=== PATIENT | female | born 2005 | race Caucasian/White ===

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

== ENCOUNTER 2024-02-02 15:39 | Emergency (ER) | payer BC, SELFPAY ==
--- NOTE | 2024-02-02 15:47 | ED.EAR ---
HPI - Ear Problem General Chief complaint: Ear Stated complaint: Earache Time Seen by Provider: 02/02/24 15:47 Source: patient, RN notes reviewed and old records reviewed Mode of arrival: ambulatory Limitations: no limitations History of Present Illness HPI Narrative: 18-year-old female to [facility] with complaint of right ear pain for 4 days. Patient states she called her primary care provider and that they sent a prescription for ear drops. Patient has been attempting to treat at home with ibuprofen as well. Patient reports worsening symptoms. Patient denies nausea, round, fever, headache , dizziness. Related Data Home Medications Medication Instructions Recorded Confirmed cariprazine 4.5 mg capsule 4.5 mg PO DAILY 02/02/24 02/02/24 (Vraylar) Allergies Allergy/AdvReac Type Severity Reaction Status Date / Time No Known Allergies Allergy Mild Verified 02/02/24 15:54 Review of Systems Review of Systems: All systems reviewed & are unremarkable except as noted in HPI and below Constitutional: Constitutional: Reports as per HPI and Denies fever(s) Eyes: Eyes: Reports no additional eye complaints ENT: Reports as per HPI and Reports otalgia ( right) Cardiovascular: Cardiovascular: Reports no additional cardiovascular complaints, Denies chest pain and Denies dyspnea Respiratory: Respiratory: Reports no additional respiratory complaints, Denies cough and Denies dyspnea Musculoskeletal: Musculoskeletal: Reports no additional musculoskeletal complaints Neurologic: Reports system reviewed and no additional complaints, except as documented Psychiatric: Psychiatric: Reports no additional psychiatric complaints [facility] Past Medical History Medical History Anxiety Depression Migraine Surgical History Surgical History History of ear surgery Family History Family History Father Alcoholism Hypertension Mother Hypertension Depression Sibling Depression Grandparent Depression Hypertension Cancer Social History Social History Smoking status: Current some day smoker Tobacco type: e-cigarettes/vaping Second hand tobacco smoke exposure: No Alcohol intake: current Alcohol use details: socially Substance use type: marijuana Lack of Transportation: No Lack of Food: Sometimes True Current Housing: I Have Housing Concerned About Future Housing: No Difficulty Paying Gas/Electric Bills: No Difficulty Paying for Meds: No Currently Unemployed: No Education: High School Diploma/GED Difficulty w/ Childcare or Family Care: No Living arrangements: with family Occupation/Education: occupation Gender identity (if verbalized by the patient): Female Sexual Orientation (if Verbalized by the Patient): Straight or Heterosexual Comments At the time of my signature, I reviewed and agree with the nursing past medical, surgical, social, and family history. There is no relevant family history pertinent to the patient complaint. Exam Const: General: cooperative, healthy appearing, comfortable, no acute distress, alert and well nourished Nutritional Appearance: well nourished Orientation/consciousness: patient oriented x3 Limitations: no limitations HENMT: Head: normal to inspection Ears: external ears normal and TM abnormal bulging on the right, erythematous bilateral, with loss of landmarks on the left ( history of graft; unable to visualize landmarks) and other ( history of graft to left TM) Face/Nose/Sinus: Normal external nose present, Normal nares present, normal facial exam, No erythema and No edema Face and sinus: normal facial exam, no erythema and no edema Mouth: Yes Normal oral and palatal mucosa present Throat: posterior terrell
[2024-02-02 15:49] VITALS: BP 132/90; PULSE 91; RESP 18; TEMP 36.5; O2SAT 100
== END 2024-02-02 16:12 | disposition home or self-care (01) ==
PROVIDERS: Emergency Provider Nurse Practitioner Family; PCP Physician Assistant
DX: H66.91 Otitis media, unspecified, right ear (principal); F12.90 Cannabis use, unspecified, uncomplicated
CPT/HCPCS: 99213; G0463

== ENCOUNTER 2024-12-10 13:26 | Emergency (ER) | payer BC, SELFPAY ==
--- NOTE | ~2024-12-10 | XR_ITS ---
CHEST RADIOGRAPH, PA AND LATERAL CLINICAL HISTORY: productive cough . COMPARISON: None available TECHNIQUE: PA and lateral views of the chest. FINDINGS The cardiomediastinal silhouette is unremarkable. The lungs are clear. Visualized osseous structures and soft tissues are unremarkable. IMPRESSION: No focal infiltrate or effusion. Reviewed, dictated and finalized at location A. 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
--- OUTSIDE RECORDS SUMMARY | 2024-12-10 13:30 | XMS_ITS ---
Author Organization [facility] [employer] Address [address] [place] [address] Care Team Providers Care Spouting Installer Name Role Phone ARCELIA DANIELS PA-C Primary Care Provider Cyndi Nix Unavailable [phone] Allergies No Known Allergies REASON FOR VISIT follow up Medications Medication SIG (Take, Route, Frequency, Duration) Notes Start Date End Date Status Nurtec 75 MG Oral *Reorder from [employer] for eRx and Interaction Alerts* 03/09/2024 Unknown lamoTRIgine 100 MG 1 tablet Orally Once a day for 90 days Active hydrOXYzine HCl 10 MG 1 tablet Orally twice a day for 30 days As needed Active AIMOVIG AUTOINJECTOR 140 MG/ML SUBCUTANEOUS AUTO-INJECTOR *Reorder from [employer] for eRx and Interaction Alerts* 03/09/2024 Unknown FLUoxetine HCl 20 MG 1 capsule Orally Once a day for 90 days Active NUVARING 0.12 MG-0.015 MG/24 HR VAGINAL *Reorder from [employer] for eRx and Interaction Alerts* 03/09/2024 Unknown lamoTRIgine 25 MG 3 tablets Oral once a day for 90 days Active Social History Tobacco Use: Social History Observation Description Date Details (start date - stop date) Never Smoker NA - NA Sex Assigned At : Social History Observation Description Sex Assigned At Female Tobacco Control (Standard) Question Answer Notes Tobacco use: Nonsmoker Encounters Encounter Location Date Provider Diagnosis [facility] [place] [facility] [address] [place] [address] 11/25/2024 Cyndi Stephens Major depressive disorder, recurrent, moderate F33.1 ; Generalized anxiety disorder F41.1 and Attention-deficit hyperactivity disorder, combined type F90.2 Assessments Encounter Date Diagnosis (ICD Code) Assessment Notes Treatment Notes Treatment Clinical Notes Section Notes 11/25/2024 Major depressive disorder, recurrent, moderate (ICD-10 - F33.1) Common side effects to SSRI medications include headaches, dry mouth/eye, GI upset (including indigestion, nausea, diarrhea), sleeping problems (insomnia or drowsiness), decreased libido, blurred vision, dizziness. Generally, side effects will subside or lessen with time and are common during drug initiation and dose changes. If they persist please contact the office. Lamotrigine is an anticonvulsant and mood stabilizer used in psychiatry. Lamotrigine use is associated with benign rashes (incidence approximately 10%) and rare serious rashes that may require hospitalization and discontinuation of treatment, including Ronquillo-Darnell syndrome and toxic epidermal necrolysis. Pt educated on importance of titration schedule and to take the medication only as prescribed. Pt educated that if they miss 5 or more consecutive doses then this medication will need to be re-titrated to reduce risk of rash. If any rash is noted, patient is instructed to stop taking this medication and call office. If rash is severe, they are to present immediately to the emergency room. 11/25/2024 Generalized anxiety disorder (ICD-10 - F41.1) 11/25/2024 Attention-defici t hyperactivity disorder, combined type (ICD-10 - F90.2) 11/25/2024 Other Increase lamictal to 100mg daily for mood, irritability Patient educated on all medications including potential benefits, side effects, risks. Educated on proper dosing schedule and importance of compliance. -Assessment and treatment plan reviewed with patient. -Compliance with treatment plan importance discussed. -Discussed the risks/benefits of this medication -Discussed medication side effects. -Contact office if symptoms worsen. -Discussed that it can take up to 6-8 weeks to see full therapeutic effects of psychotropic medications. -Crisis prevention hotline 987. Plan Of Treatment Medication Medication Name Sig Start Date Stop Date Notes lamoTRIgine 100 MG 1 tablet Orally Once a day for 90 days hydrOXYzine HCl 10 MG 1 tablet Orally tw ice a day for 30 days FLUoxetine HCl 20 MG 1 capsule Orally On ce a day for 90 days Treatment Notes Assessment Notes Major depressive disorder, r ecurrent, moderate Common side effects to SSRI medications include headaches, dry mouth/eye, GI upset (including indigestion, nausea, diarrhea), sleeping problems (insomnia or drowsiness), decreased libido, blurred vision, dizziness. Generally, side effects will subside or lessen with time and are common during drug initiation and dose changes. If they persist please contact the office. Lamotrigine is an anticonvulsant and mood stabilizer used in psychiatry. Lamotrigine use is associated with benign rashes (incidence approximately 10%) and rare serious rashes that may require hospitalization and discontinuation of treatment, including Ronquillo-Darnell syndrome and toxic epidermal necrolysis. Pt educated on importance of titration schedule and to take the medication only as prescribed. Pt educated that if they miss 5 or more consecutive doses then this medication will need to be re-titrated to reduce risk of rash. If any rash is noted, patient is instructed to stop taking this medication and call office. If rash is severe, they are to present immediately to the emergency room. Other Increase lamictal to 100mg daily for mood, irritability Patient educated on all medications including potential benefits, side effects, risks. Educated on proper dosing schedule and importance of compliance. Next Appt Details Follow Up: 6 Weeks, Reason: medication follow up Provider Name:Cyndi Stephens, 01/06/2025 08:00:00 AM, [address], [facility] [address], [place], [address], Progress Notes * DENIS GÓMEZАЛЕКСАНДРADOB:2005 (19 yo F)Acc No.[id number]:11/25/2024 Patient: CARLINE COTTON Provider: KIM MANCILLAHNP :2005 A ge:19 Y S ex:Female Date:11/25/2024 Address:[facility] [address] [place] [facility] Pcp:ARCELIA DANIELS PA-C Subjective: * Chief Complaints: * F ollow up * HPI: H istory of Presenting Problem: Medication Side Effects n one . A nxiety R ates anxiety 5/10 with 10 being most severe. . D epression R ates depression 3/10 with 10 being most severe. . M ood lability n o hx of pal . P sychosis n o hx of psychosis . S uicidal ideation D enies . S ubstance abuse A lcohol use about monthly . A DHD f orgetful in daily activities, easily distracted by extraneous stimuli, does not follow through on instructions and fails to finish work. Here for follow up. Lamictal increased last apt. 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 Mood is okay, I still get mad easily still . Irritability is overall better although continues to improve overall with medication. Irritability is generally directed toward boyfriend or mom, not strangers. Continues to report anxiety, worse when she is in public by herself. Denies panic attacks, Sleep is good, getting about 7 hours nightly. Appetite is good. D epression Screening: MURPHY-7 (2018 Edition) F eeling nervous, anxious, or on edge?More than half the days, N ot being able to stop or control worrying S everal days,?Worrying too much about different things S everal days, T rouble relaxing M ore than half the days, B eing so restless that it is hard to sit still M ore than half the days, B ecoming easily annoyed or irritable N early every day, F eeling afraid as if something awful might happen S ever. [place]-Suicide Severity Rating Scale: Suicide Risk (CSRS-screener) i n the past one month Have you wished you were or wished you could go to sleep and not wake up? N o, i n the past one month Have you actually had any thoughts of killing yourself? N o. D epression screening: PHQ-9 L ittle interest or pleasure in doing things S everal days, F eeling down, depressed, or hopeless S everal days, T rouble falling or staying asleep, or sleeping too much M ore than half the days, F eeling tired or having little energy N early every day, P oor appetite or overeating N ot at all, F eeling bad about yourself or that you are a failure, or have let yourself or your family down S everal days, Moving or speaking so slowly that other people could have noticed; or the opposite, being so fidgety or restless that you have been moving around a lot more than usual N ot at all, T houghts that you would be better off or of hurting yourself in some way N ot at all. I ntervention D epression Screening Findings P ositve, F ollow-Up for Depression M ental health treatment assessment, Patient follow-up to return when and if necessary, S uicide Risk Assessment Performed , A dditional Evaluation for Depression P sychiatric interview and evaluation, N melly of the standardized tool used for adult depression screening: P atient Health Questionnaire (PHQ-9). * ROS: P sychiatric: Patient denies s uicidal thoughts, pal, auditory / visual hallucinations, delusions, panic attacks. P atient complains of a nxiety, irritability.?Comments S [facility] for details. * Medical History: * Surgical History: E ardrum revision (32106) * Hospitalization/Major Diagno stic Procedure: * Family History: M aternal Aunt: Depressive disorder . M other: Bipolar disorder , Attention deficit hyperactivity disorder , Depressive disorder . * Social History: T obacco Use: T obacco Control (Standard) T obacco use: N onsmoker. M igrated Social History: M igrated Social History: Alcohol Intake: Occasional 04/03/2023,Tobacco Years: Never smoker 04/03/2023. M iscellaneous: A dvance Care Planning A re you your own decision-maker Y es, D o you have Power of Professor Criminal Justice for Health or Medical? N o. * Medications: T akingFLUoxetine HCl 20 MG Capsule 1 capsule Orally Once a day hydrOXYzine HCl 10 MG Tablet 1 tablet Orally twice a day lamoTRIgine 25 MG Tablet 3 tablets Oral once a day Taking FLUoxetine HCl 20 MG Capsule 1 capsule Orally Once a day Taking hydrOXYzine HCl 10 MG Tablet 1 tablet Orally twice a day Taking lamoTRIgine 25 MG Tablet 3 tablets Oral once a day UnknownNUVARING 0.12 MG-0.015 MG/24 HR VAGINAL , Notes to Pharmacist: *Reorder from [facility] for eRx and Interaction Alerts*Nurtec 75 MG Tablet Disintegrating Oral , Notes to Pharmacist: *Reorder from [employer] for eRx and Interaction Alerts*AIMOVIG AUTOINJECTOR 140 MG/ML SUBCUTANEOUS AUTO-INJECTOR , Notes to Pharmacist: *Reorder from [employer] for eRx and Interaction Alerts*Medication List reviewed and reconciled with the patientMiyanowanthony NUVARING 0.12 MG-0.015 MG/24 HR VAGINAL , Notes to Pharmacist: *Reorder from [employer] for eRx and Interaction Alerts*Unknown Nurtec 75 MG Tablet Disintegrating Oral , Notes to Pharmacist: *Reorder from [employer] for eRx and Interaction Alerts*Unknown AIMOVIG AUTOINJECTOR 140 MG/ML SUBCUTANEOUS AUTO-INJECTOR , Notes to Pharmacist: *Reorder from [employer] for eRx and Interaction Alerts*Medication List reviewed and reconciled with the patient * Allergies: N .K.D.A.no[Allergies Verified] Objective: * Vitals: * Examination: P sychiatry: Appearance: w ell-groomed. Abnormal body movements: n one. Affect / mood: a ppropriate. Attitude: c ooperative. Homicidal ideation: n one. Suicidal ideation: n one. Degree of awareness of surroundings: w ithin normal limits.? Delusions: n o. Hallucinations: n o. Insight: g ood. Judgement: g ood. Orientation: a wake, alert and oriented x 3. Perceptual disorders: n o perceptual disorder noted. Psychomotor activity: w ithin normal range. Speech / language: n ormal rate, volume, and articulation (RVR). Thought content: a ppropriate. Thought process: i ntact. Assessment: * Assessment: 1. M ajor depressive disorder, recurrent, moderate - F33.1 (Primary) 2 . G eneralized anxiety disorder - F41.1 3 . A ttention-deficit hyperactivity disorder, combined type - F90.2 Plan: * Treatment: 2. G eneralized anxiety disorder Continue hydrOXYzine HCl Tablet, 10 MG, 1 tablet, Orally, twice a day As needed, 30 days, 60 Tablet, Refills 0. 3. O thers Notes: Increase lamictal to 100mg daily for mood, irritability Patient educated on all medications including potential benefits, side effects, risks. Educated on proper dosing schedule and importance of compliance. Clinical Notes: -Assessment and treatment plan reviewed with patient. -Compliance with treatment plan importance discussed. -Discussed the risks/benefits of this medication -Discussed medication side effects. -Contact office if symptoms worsen. -Discussed that it can take up to 6-8 weeks to see full therapeutic effects of psychotropic medications. -Crisis prevention hotline 988. * Procedure Codes: 9 6127 BEHAV ASSMT W/SCORE & DOCD/STAND [id number] VISIT COMPLEXITY INHERENT TO ONGOING CARE RELATED TO A PATIENT'S SINGLE, SERIOUS CONDITION OR A COMPLEX [id number] CLIN DEPRESSION SCREEN DOC * Follow Up: 6 Weeks (Reason: medication follow up) * Billing Information: * Visit Code: 00881 OFFICE OUTPATIENT VISIT 25 MINUTES DETAILED HISTORY AND EXAM/MODERATE MEDICAL DECISION MAKING. * Procedure Codes: 53256 BEHAV ASSMT W/SCORE & DOCD/STAND INSTRUMENT. G2211 VISIT COMPLEXITY INHERENT TO ONGOING CARE RELATED TO A PATIENT'S SINGLE, SERIOUS CONDITION OR A COMPLEX CONDITION. G8431 CLIN DEPRESSION SCREEN DOC. * ICAL INFORMATICS SPECIALIST Sign off status: Completed true * Provider: ASHELY MANCILLA Date: 0 11/25/2024 Generated for Leodan torres/Jhon/Shabnamitting on: 0 12/10/2024 01:30 PM CLINICAL INFORMATICS SPECIALIST History and Physical Notes * HPI (History of Present Illness) Category Sub-Category Detail Notes Category Not es History of Presenting Problem Anxiety Rates anxiety 5/10 with 10 b eing most severe. Here for follow up. Lamictal increased last apt. 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 Mood is okay, I still get mad easily still . Irritability is overall better although continues to improve overall with medication. Irritability is generally directed toward boyfriend or mom, not strangers. Continues to report anxiety, worse when she is in public by herself. Denies panic attacks, Sleep is good, getting about 7 hours nightly. Appetite is good. Depression Rates depression 3/1 0 with 10 being most severe. Substance abuse Alcohol use about mo nthly Suicidal ideation Denies Psychosis no hx of psychosis Mood lability no hx of pal ADHD forgetful in daily a ctivities, easily distracted by extraneous stimuli, does not follow through on instructions and fails to finish work Medication Side Effects none Depression screening PHQ-9 Little inte rest or pleasure in doing things: Several days Feeling down, depressed, or hopeless: Se veral days Trouble falling or staying a sleep, or sleeping too much: More than half the days Feeling tired or having little energy: N early every day Poor appetite or overeating: Not at all Feeling bad about yourself o r that you are a failure, or have let yourself or your family down: Several days Moving or speaking so slowly that other people could have noticed; or the opposite, being so fidgety or restless that you have been moving around a lot more than usual: Not at all Thoughts that you would be b justine off or of hurting yourself in some way: Not at all Intervention Depression Screening Findings: P ositve Follow-Up for Depression: [facility] treatment assessment, Patient follow-up to return when and if necessary Suicide Risk Assessment Performed: Additional Evaluation for De pression: Psychiatric interview and evaluation Name of the standardized too l used for adult depression screening:: Patient Health Questionnaire (PHQ-9) Depression Screening MURPHY-7 (2018 Edition) Feelin g nervous, anxious, or on edge: More than half the days Not being able to stop or control worryi ng: Several days Worrying too much about different things : Several days Trouble relaxing: More than half the day s Being so restless that it is hard to sit still: More than half the days Becoming easily annoyed or irritable: [place] every day Feeling afraid as if something awful derian ht happen: Several days [place]-Suicide Severity Rating Scale Suicide Risk (CSRS-screener) in the past one month Have you wished you were or wished you could go to sleep and not wake up?: No in the past one month Have y ou actually had any thoughts of killing yourself?: No Examination Category Sub-Category Detail Notes Category Not es Psychiatry Appearance: well-groomed Attitude: cooperative Psychomotor activity: within normal rang e Abnormal body movements: none Degree of awareness of surroundings: wit hin normal limits Orientation: awake, alert and husam ented x 3 Affect / mood: appropriate Speech / language: normal rate, volume, and articulation (RVR) Insight: good Judgement: good Thought process: intact Thought content: appropriate Perceptual disorders: no perceptual diso rder noted Suicidal ideation: none Homicidal ideation: none Delusions: no Hallucinations: no
--- OUTSIDE RECORDS SUMMARY | 2024-12-10 13:30 | XMS_ITS ---
Author Organization [facility] [employer] Address [address] [place] [address] Care Team Providers Care State Editor Name Role Phone ARCELIA DANIELS PA-C Primary Care Provider Cyndi Nix Unavailable [phone] Allergies No Known Allergies REASON FOR VISIT 1 month f/u Medications Medication SIG (Take, Route, Frequency, Duration) Notes Start Date End Date Status Nurtec 75 MG Oral *Reorder from [employer] for eRx and Interaction Alerts* 03/09/2024 Unknown NUVARING 0.12 MG-0.015 MG/24 HR VAGINAL *Reorder from [employer] for eRx and Interaction Alerts* 03/09/2024 Unknown AIMOVIG AUTOINJECTOR 140 MG/ML SUBCUTANEOUS AUTO-INJECTOR *Reorder from [employer] for eRx and Interaction Alerts* 03/09/2024 Unknown FLUoxetine HCl 20 MG 1 capsule Orally Once a day for 90 days Active lamoTRIgine 25 MG 3 tablet Orally once daily for 30 days for 14 days then 2 tablets daily Active hydrOXYzine HCl 10 MG 1 tablet Orally twice a day for 30 days 10/14/2024 Active lamoTRIgine 25 MG 2 tablets Oral once a day for 90 days Active Social History Tobacco Use: Social History Observation Description Date Details (start date - stop date) Never Smoker NA - NA Sex Assigned At : Social History Observation Description Sex Assigned At Female Tobacco Control (Standard) Question Answer Notes Tobacco use: Nonsmoker Encounters Encounter Location Date Provider Diagnosis [facility] [address] [facility] [address] [place] [address] 10/14/2024 Cyndi Stephens Major depressive disorder, recurrent, moderate F33.1 ; Generalized anxiety disorder F41.1 and Attention-deficit hyperactivity disorder, combined type F90.2 Assessments Encounter Date Diagnosis (ICD Code) Assessment Notes Treatment Notes Treatment Clinical Notes Section Notes 10/14/2024 Major depressive disorder, recurrent, moderate (ICD-10 - [...] to present immediately to the emergency room. 10/14/2024 Generalized anxiety disorder (ICD-10 - F41.1) 10/14/2024 Attention-defici t hyperactivity disorder, combined type (ICD-10 - F90.2) 10/14/2024 Other Increase Lamictal 75 mg daily for mood, anxiety. Patient educated on all medications including potential [...] effects of psychotropic medications. -Crisis prevention hotline 304. Plan Of Treatment Medication Medication Name Sig Start Date Stop Date Notes FLUoxetine HCl 20 MG 1 capsule Orally On ce a day for 90 days lamoTRIgine 25 MG 3 tablet Orally once daily for 30 days hydrOXYzine HCl 10 MG 1 tablet Orally tw ice a day for 30 days 10/14/2024 Treatment Notes Assessment Notes Major depressive disorder, [...] immediately to the emergency room. Other Increase Lamictal 75 mg daily for mood, anxiety. Patient educated on all medications including potential benefits, side effects, risks. Educated on proper dosing schedule and importance of compliance. Next Appt Details Follow Up: 6 Weeks, Reason: medication follow up Provider Name:Cyndi Stephens, 01/06/2025 08:00:00 AM, [address] [facility], [facility] [address], [place], [address], Progress Notes * DENIS GÓMEZMODESTOB:2005 (19 yo F)Acc No.[id number]:10/14/2024 Patient: CARLINE COTTON Provider: Sukhjinder STEPHENS PMHNP :2005 A ge:19 Y S ex:Female Date:10/14/2024 Address:[facility], [facility] Pcp:ARCELIA DANIELS PA-C Subjective: * Chief Complaints: * 1 month f/u * HPI: H istory of Presenting Problem: Medication Side Effects n one . A nxiety R ates anxiety 7/10 with 10 being most severe. . D epression R ates depression 3/10 with 10 being most severe. . M ood lability n o hx of pal . P sychosis n o hx of psychosis . S ubstance abuse A lcohol use about monthly . S uicidal ideation?Denies . A DHD f orgetful in daily activities, easily distracted by extraneous stimuli, does not follow through on instructions and fails to finish work. Here for follow up. Abilify discontinued and lamictal started last apt. She has been interviewing for [employer] as a [place]. She is up to 50mg on the lamictal. Reports she has noted a positive change in mood, energy and motivation is better. States depression is a lot better . Denies feeling hopeless or helpless. No suicidal ideation. Anxiety is awful , about the same since last apt. Denies panic attacks. Continues to have irritability, maybe slightly better. Sleep is good. Getting about 7 hours nightly. Appetite is good. D epression Screening: MURPHY-7 (2018 Edition) F eeling nervous, anxious, or on edge?Nearly every day, W orrying too much about different things M ore than hafl the days,?Trouble relaxing S everal days, B eing so restless that it is hard to sit still M ore than half the days, B ecoming easily annoyed or irritable N early every day, F eeling afraid as if something awful might happen S everal . [place]-Suicide Severity Rating Scale: Suicide Risk (CSRS-screener) i n the past one month Have you wished you were or wished you could go to sleep and not wake up? N o, i n the past one month Have you actually had any thoughts of killing yourself? N o. D epression screening: PHQ-9 L ittle interest or pleasure in doing things N early every day, F eeling down, depressed, or hopeless S everal days, T rouble falling or staying asleep, or sleeping too much M ore than half the days, F eeling tired or having little energy S everal days, P oor appetite or overeating M ore than half the days, F eeling bad about yourself or that you are a failure, or have let yourself or your family down M ore than half the days, T rouble concentrating on things, such as reading the newspaper or watching television M ore than half the days, M oving or speaking so slowly that other people could have noticed; or the opposite, being so fidgety or restless that you have been moving around a lot more than usual N ot at all, T houghts that you would be better off or of hurting yourself in some way N ot at all, T otal Score 1 3, I nterpretation M oderate Depression. I ntervention D epression Screening Findings P ositve, F ollow-Up for Depression M ental health treatment assessment, Patient follow-up to return when and if necessary, S uicide Risk Assessment Performed 1 12/15/2023, A dditional Evaluation for Depression P sychiatric interview and evaluation, N melly of the standardized tool used for adult depression screening: [facility] (PHQ-[facility]). * ROS: P sychiatric: Patient denies s uicidal thoughts, pal, auditory / visual hallucinations, delusions, panic attacks. P atient complains of a nxiety, irritability.?Comments S [facility] for details. * Medical History: * Surgical History: E ardrum revision (42205) * Hospitalization/Major Diagno stic Procedure: * Family [...] es, D o you have Power of Medication Manager for Health or Medical? N o. * Medications: T akingFLUoxetine HCl 20 MG Capsule 1 capsule Orally Once a day lamoTRIgine 25 MG Tablet 2 tablets Oral once a day Taking FLUoxetine HCl 20 MG Capsule 1 capsule Orally Once a day Taking lamoTRIgine 25 MG Tablet 2 tablets Oral once a day UnknownNUVARING 0.12 MG-0.015 MG/24 HR VAGINAL , Notes to Pharmacist: *Reorder from [employer] for eRx and Interaction Alerts*Nurtec 75 MG [...] * Treatment: 2. G eneralized anxiety disorder Start hydrOXYzine HCl Tablet, 10 MG, 1 tablet, Orally, twice a day, 30 days, 60 Tablet, Refills 1.? 3. O thers Notes: Increase Lamictal 75 mg daily for mood, anxiety. Patient educated on all medications including potential [...] 9 6127 BEHAV ASSMT W/SCORE & DOCD/STAND [id number] VISIT COMPLEXITY INHERENT TO ONGOING CARE RELATED TO A PATIENT'S SINGLE, SERIOUS CONDITION OR A COMPLEX [id number] CLIN DEPRESSION SCREEN DOC * Follow Up: 6 Weeks (Reason: medication follow up) * Billing Information: * Visit Code: 43007 OFFICE OUTPATIENT VISIT 25 MINUTES DETAILED HISTORY AND EXAM/MODERATE MEDICAL DECISION MAKING. * Procedure Codes: 59647 BEHAV ASSMT W/SCORE & DOCD/STAND INSTRUMENT. G2211 VISIT COMPLEXITY INHERENT TO ONGOING CARE RELATED TO A PATIENT'S SINGLE, SERIOUS CONDITION OR A COMPLEX CONDITION. G8431 CLIN DEPRESSION SCREEN DOC. * CLINICIAN Sign off status: Completed true * Provider: ASHELY MANCILLA Date: 12/15/2023 Generated for Leodan torres/Jhon/Willie on: 0 12/10/2024 01:29 PM CARE CLINICIAN History and Physical Notes * HPI (History of Present Illness) Category Sub-Category Detail Notes Category Not es History of Presenting Problem Anxiety Rates anxiety 7/10 with 10 b eing most severe. Here for follow up. Abilify discontinued and lamictal started last apt. She has been interviewing for [employer] as a [place]. She is up to 50mg on the lamictal. Reports she has noted a positive change in mood, energy and motivation is better. States depression is a lot better . Denies feeling hopeless or helpless. No suicidal ideation. Anxiety is awful , about the same since last apt. Denies panic attacks. Continues to have irritability, maybe slightly better. Sleep is good. Getting about 7 hours nightly. Appetite is good. [...] inte rest or pleasure in doing things: Nearly every day Feeling down, depressed, or hopeless: Se veral days Trouble falling or staying a sleep, or sleeping too much: More than half the days Feeling tired or having little energy: S everal days Poor appetite or overeating: More than h ishan the days Feeling bad about yourself o r that you are a failure, or have let yourself or your family down: More than half the days Trouble concentrating on thi ngs, such as reading the newspaper or watching television: More than half the days Moving or speaking so slowly that other people could have noticed; or the opposite, being so fidgety or restless that you have been moving around a lot more than usual: Not at all Thoughts that you would be b justine off or of hurting yourself in some way: Not at all Total Score: 13 Interpretation: Moderate Depression Intervention Depression Screening Findings: P ositve Follow-Up for Depression: [facility] treatment assessment, Patient follow-up to return when and if necessary Suicide Risk Assessment Performed: 10/14 Additional Evaluation for Depression: Ps ychiatric interview and evaluation Name of the standardized too l used for adult depression screening:: Patient Health Questionnaire (PHQ-9) Depression Screening MURPHY-7 (2018 Edition) Feelin g nervous, anxious, or on edge: Nearly every day Worrying too much about different things : More than hafl the days Trouble relaxing: Several days Being so restless that it is hard to sit still: More than half the days Becoming easily annoyed or irritable: [place] every day Feeling afraid as if something awful derian ht happen: Several days [place]-Suicide Severity Rating Scale Suicide Risk (CSRS-screener) in [...]
--- OUTSIDE RECORDS SUMMARY | 2024-12-10 13:30 | XMS_ITS | Clinical Summary ---
Author Organization [facility] Address [facility] [place] [address] Care Team Providers Care Dispensing Optician Apprentice Name Role Phone Thai Barnett PA-C Primary Care Provider [phone] Allergies Active Allergy Reactions Criticality Noted Date Comments Lactose GI Upset 10/02/2017 Medications ARIPiprazole (ABILIFY) 10 MG tablet Take 1 tablet (10 mg total) by mouth daily. 06/12/2022 Active buPROPion XL (WELLBUTRIN XL) 300 MG 24 hr tablet Take 1 tablet (300 mg total) by mouth daily. Active QULIPTA tablet Take 1 tablet (30 mg total) by mouth daily. Active DULoxetine (CYMBALTA) 30 MG capsule Take 1 capsule (30 mg total) by mouth daily. 05/07/2023 Active VRAYLAR 3 MG capsule Take 1 capsule (3 mg total) by mouth daily. Active lamoTRIgine (LAMICTAL) 100 MG tablet Take 1 tablet (100 mg total) by mouth 2 (two) times daily. 06/12/2022 Active Social History Tobacco Use Types Packs/Day Years Used Date Smoking Tobacco: Never Smokeless Tobacco: Never Alcohol Use Standard Drinks/Week Comments Never 0 (1 standard drink = 0.6 oz pur e alcohol) Comments Unknown Sex and Gender Information Value Date Recorded Sex Assigned at Not on file Legal Sex Female 10:00 AM CDT Gender Identity Not on file Sexual Orientation Not on file Last Filed Vital Signs Vital Sign Reading Time Taken Comments Blood Pressure 136/83 06/12/2023 3:09 PM CDT Pulse 92 06/12/2023 3:09 PM CDT Temperature 36.8 C (98.3 F) 06/12/2023 3:09 PM CDT Respiratory Rate 12 06/12/2023 3:09 PM CDT Oxygen Saturation 99% 06/12/2023 3:09 PM CDT Inhaled Oxygen Concentration - - Weight 90.7 kg (200 lb) 06/11/2023 4:14 AM CDT Height 172.7 cm (5' 8 ) 06/11/2023 4:14 AM CDT Body Mass Index 30.41 06/11/2023 4:14 AM CDT Plan of Treatment Health Maintenance Due Date Last Done Comments Annual Physical 2007 Meningococcal B Vaccine (1 of 2 - Standard) 2020 Hepatitis C 2022 COVID-19 Vaccine ( season) 2024 Influenza Adult (#1) 2024 08/09/2015, 09/12/2008, 09/05/2005, Additional history exists DTaP, Tdap and Td Vaccines (7 - Td or Tdap) 08/09/2025 08/09/2015, 03/03/2009, 06/21/2005, Additional history exists Hepatitis B Vaccines Completed 03/11/2005, 2004, 2004 Pneumococcal Vaccine: Pediatrics (0 to 5 Years) and At-Risk Patients (6 to 64 Years) Aged Out 03/11/2005, 2004, 2004, Additional history exists No longer eligible based on patient's age to complete this topic HPV Vaccines Completed 04/22/2016, 01/2016, 08/09/2015 Meningococcal Vaccine Completed 10/31/2020, 015 RSV Immunizations Under 20 Months Aged Out No longer eligible based on patient's age to complete this topic Insurance Care Teams Dispensing Optician Apprentice Relationship Specialty Start Date End Date Thai Barnett PA-C [address] [facility] [address] [place] [address] PCP - General PHYSICIAN PROCESS SPECIALIST 06/11/23
--- OUTSIDE RECORDS SUMMARY | 2024-12-10 13:30 | XMS_ITS | Clinical Summary ---
Author Organization [facility] Address [address] [place] [address] Care Team Providers Care Software Engineer Advisor Name Role Phone Unavailable Primary Care Provider Unavailabl e Social History Tobacco Use Types Packs/Day Years Used Date Smoking Tobacco: Never Assessed Comments Unknown Sex and Gender Information Value Date Recorded Sex Assigned at Not on file Legal Sex Female 1:08 PM CDT Gender Identity Not on file Sexual Orientation Not on file Plan of Treatment Health Maintenance Due Date Last Done Comments Hepatitis C Virus (HCV) Screening 2004 Meningococcal B Immunization (1 of 2 - Standard) 2020 Influenza Immunization (#1) 07/04/202405/2015, 08/12/2014, 08/06/2013, Additional history exists SARS-COV-2 Immunization (2023- season) 2024 Respiratory Syncytial Virus (RSV) Immunization (Adult) (1 - 1-dose 75+ series) 2079 Hepatitis B Immunization Completed 005, 2004, 2004 Pneumococcal Immunization Combined Aged Out 03/11/2005, 2004, 2004, Additional history exists No longer eligible based on patient's age to complete this topic Hepatitis A Immunization Discontinued 09/22/2007, 03/03 Measles Mumps Rubella (MMR) Immunization Discontinued 03/03/2009, 03/11/2005 Polio (IPV) Immunization Discontinued 009, 2004, 2004, Additional history exists Varicella Immunization Discontinued 03/03/2009, 2004 DTaP/Tdap/Td Immunization Discontinued 2014, 03/03/2009, 06/21/2005, Additional history exists TdaP Immunization Completed 08/09/2015 Human Papillomavirus (HPV) Immunization Completed 04/22/2016, 12/06/2015, 08/09/2015 Meningococcal Immunization (ACWY) Completed 10/31/2020, 08/09/2015 Rotavirus Immunization Aged Out No lo nger eligible based on patient's age to complete this topic
--- OUTSIDE RECORDS SUMMARY | 2024-12-10 13:30 | XMS_ITS | Patient Health Record ---
Author Organization [facility] Address [address] [place] [address] Care Team Providers Care Termite Renewal Inspector Name Role Phone Thai Barnett Primary Care Provider UnavailDelilah Gonzalez Unavailable [phone] [employer], Provider Unavailable Unavailab le Allergies No Known Allergies Reason For Referral No Information Medications Medication SIG (Take, Route, Frequency, Duration) Notes Start Date End Date Status CETIRIZINE HYDROCHLORIDE 10 mg 1 tab(s) orally bid 01/29/2023 Active Qulipta 30 MG 1 tab(s) orally once a day Active Wellbutrin SR 150 MG 1 tab(s) orally 2 t imes a day Active Vraylar 3 MG 1 cap(s) orally once a day Active QULIPTA 30 mg 1 tab(s) orally once a day Active FAMOTIDINE 40 mg 1 tab(s) orally bid 01/29/2023 Active Cetirizine HCl 10 MG 1 tab(s) orally bid Active WELLBUTRIN SR 150 mg/12 hours 1 tab(s) orally 2 times a day Active Famotidine 40 MG 1 tab(s) orally bid 01/29/2023 Active VRAYLAR 3 mg 1 cap(s) orally once a day Active Immunizations Vaccine Route Administration Date Status Comme nts DTaP < 7 y/o Unknown 05/11/2010 Administered Portal Inf ormation Hepatitis B (11-19) Unknown 2005 Administered Por sagrario Information Hepatitis A Unknown 2004 Administered Portal Info rmation Social History Tobacco Use: Social History Observation Description Date Details (start date - stop date) Never Smoker NA - NA Smoking Smart Form: Question Answer Notes Are you a: never smoker Problems Problem Type SNOMED Code ICD Code Onset Dates Problem Status W/U Status Risk Notes Problem Idiopathic urticaria (37343659) Idiopathic urticaria (L50.1) Active confirmed Encounters Encounter Location Date Provider Diagnosis [facility] - [address] [address] 04/17/2024 Provider Bryon Idiopathic urticaria L50.1 Assessments Encounter Date Diagnosis (ICD Code) Assessment Notes Treatment Notes Treatment Clinical Notes Section Notes 04/17/2024 Idiopathic urticaria (ICD-10 - L50.1) Plan Of Treatment No Information Insurance Providers Payer Name Payer Address Payer Phone Subscriber Number Group Number Insured Name Patient Relationship to Insured Coverage Start Date Coverage End Date [facility] [id number] [place] [address] [id number] Jeannine Ball Child - Insured has Financial Responsibility Medical (General) History Medical History History ICD Code Depression, unspecified F32.A Surgical History Surgery Date(Month/Year) ear patch 01/09/2018
--- OUTSIDE RECORDS SUMMARY | 2024-12-10 13:30 | XMS_ITS | CONTINUITY OF CARE DOCUMENT ---
Author Name kelly mendoza Address Unknown Organization [facility] Address [id number] [place] [address] [address] [place] [address] Phone [phone] Care Team Providers Care Laundry Assistant Name Role Phone Marcos Juan MD Unavailable [phone] Marcos Juan MD Unavailable [phone] INSURANCE PROVIDERS Payer name Policy type / Coverage type [place] red [employer] party ID [facility] [id number]
--- OUTSIDE RECORDS SUMMARY | 2024-12-10 13:30 | XMS_ITS | Data Portability ---
Author Organization [facility] Address [address] [place] [address] Care Team Providers Care Geriatric Social Work Professor Name Role Phone ARCELIA DANIELS Primary Care Provider [phone] Assessment No assessment recorded. Plan of Treatment Reminders Order Date Submit Date Provider Last Modified By Organization Details Last Modified Time Details Appointments None recorded. Lab CMP, serum or plasma 2022 023 [facility] (Lab), [address] [place], [address], 3 05:52:51 lipid panel, blood 2022 023 [facility] (Lab), [address] [place], [address], 3 05:52:50 CBC w/ auto diff 2022 023 [facility] (Lab), [address] [place], [address], 3 05:52:50 prolactin, serum 2022 023 [facility] (Lab), [address] [place], [address], 3 05:52:52 TSH, serum or plasma 2022 023 [facility] (Lab), [address] [place], [address], 3 05:52:51 HbA1c (hemoglobi n A1c), blood 2022 023 [facility] (Lab), [address], [place], [address], 3 05:52:52 urinalysis , dipstick 2022 023 [email or web address], [address], [place], [address], 3 13:28:32 urinalysis , dipstick [email or web address] [place], [place] [id number] [address], [address], [place], [address], 4 12:06:50 Referral primary care provider referral 2021 022 [email or web address] Not available 14:47:29 Procedures None recorded. Surgeries None recorded. Imaging None recorded. Medication Orders NuvaRing 0.12 mg-0.015 mg/24 hr vaginal 2021 [facility]22 [address] [id number] [address] [place], [place], [id number], 3 13:22:22 Provera 10 mg tablet [address] [id number], [address] [place], [place], [id number], 3 16:37:03 Macrobid 100 mg capsule 2022 024 [facility]armacy #2510, [address] [place], [address], 4 12:02:19 Pyridium 100 mg tablet [address]/Pharmacy #2510, [address] [place], [address], 4 12:02:03 Diflucan 200 mg tablet 2023 024 [facility] [address] [place], [address], 4 12:18:11 nystatin-t riamcinolo ne 100,000 unit/gram- 0.1 % topical ointment 2023 024 [facility] [address] [place], [address], 4 12:18:10 Patient TargetsNo targets recorded. Patient InstructionsNo instructions recorded. Reason for Referral Primary Care Provider Referr al for Adult health examination Referring Physician: Shelley Armendariz, PEDIATRIC ALLERGIST, Encounter Date: 08/28/2022 Results Created Date Observation Date Name Description Value Unit Range Abnormal Flag Note LastModifiedBy Organization Detail LastModifiedTime 11/08/1911/08/2022 CBC W/DIF F WBC 8.8 10'3/ uL 4.5-13 .0 Not Available [facility] (Lab) [address] [place], [address], 11/09/2022 05:52:50 11/08/19 23 11/08/2022 CBC W/DIF F RBC 4.92 10'6/ uL (based on docume nted legal sex) 4.10-5 .30 Not Available [facility] (Lab) [address] [place], [address], 11/09/2022 05:52:50 11/08/19 23 11/08/2022 CBC W/DIF F HGB 14.6 g/dL (based on docume nted legal sex) 11.9-1 5.8 Not Available [facility] (Lab) [address] [place], [address], 11/09/2022 05:52:50 11/08/19 23 11/08/2022 CBC W/DIF F HCT 44.5 % (based on docume nted legal sex) 37.4-4 8.3 Not Available [facility] (Lab) [address], [place], [address], 11/09/2022 05:52:50 11/08/19 23 11/08/2022 CBC W/DIF F MCV 90.4 fL 82.0-9 9.0 Not Available [facility] (Lab) [address], [place], [address], 11/09/2022 05:52:50 11/08/19 23 11/08/2022 CBC W/DIF F MCH 29.7 pg 27.0-3 3.0 Not Available [facility] (Lab) [address], [place], [address], 11/09/2022 05:52:50 11/08/19 23 11/08/2022 CBC W/DIF F MCHC 32.8 g/dL 32.0-3 6.0 Not Available [facility] (Lab) [address], [place], [address], 11/09/2022 05:52:50 11/08/19 23 11/08/2022 CBC W/DIF F RDW 12.9 % 11.0-1 5.0 Not Available [facility] (Lab) [address], [place], [address], 11/09/2022 05:52:50 11/08/19 23 11/08/2022 CBC W/DIF F plt 306 10'3/ uL 150-45 0 Not Available [facility] (Lab) [address], [place], [address], 11/09/2022 05:52:50 11/08/19 23 11/08/2022 CBC W/DIF F MPV 11.4 fL 9.8-12 .7 Not Available [facility] (Lab) [address] [place], [address], 11/09/2022 05:52:50 11/08/1911/08/2022 CBC W/DIF F NRBC's 0.0 % 0 Not Available [facility] (Lab) [address], [place], [address], 11/09/2022 05:52:50 11/08/19 23 11/08/2022 CBC W/DIF F absolute NRBCs 0.0 10'3/ uL 0 Not Available [facility] (Lab) [address], [place], [address], 11/09/2022 05:52:50 11/08/19 23 11/08/2022 CBC W/DIF F neutrophils 66.5 % 37.0-7 2.0 Not Available [facility] (Lab) [address], [place], [address], 11/09/2022 05:52:50 11/08/19 23 11/08/2022 CBC W/DIF F lymphocytes 25.5 % 23.0-4 3.0 Not Available [facility] (Lab) [address], [place], [address], 11/09/2022 05:52:50 11/08/1911/08/2022 CBC W/DIF F monocytes 6.3 % 4.0-14 .0 Not Available [facility] (Lab) [address], [place], [address], 11/09/2022 05:52:50 11/08/1911/08/2022 CBC W/DIF F eosinophils 0.6 % 0.0-5. 0 Not Available [facility] (Lab) [address], [place], [address], 11/09/2022 05:52:50 11/08/19 23 11/08/2022 CBC W/DIF F basophils 0.5 % 0.0-2. 0 Not Available [facility] (Lab) [address] [place], [address], 11/09/2022 05:52:50 11/08/19 23 11/08/2022 CBC W/DIF F immature granulocytes 0.6 % no define d refere nce range Not Available [facility] (Lab) [address] [facility], [place], [address], 11/09/2022 05:52:50 11/08/19 23 11/08/2022 CBC W/DIF F absolute neutrophils 5.8 10'3/ uL 1.7-9. 7 Not Available [facility] (Lab) [address] [facility], [place], [address], 11/09/2022 05:52:50 11/08/19 23 11/08/2022 CBC W/DIF F absolute lymphocytes 2.2 10'3/ uL 1.2-7. 8 Not Available [facility] (Lab) [address] [facility], [place], [address], 11/09/2022 05:52:50 11/08/19 23 11/08/2022 CBC W/DIF F absolute monocytes 0.6 10'3/ uL 0.2-1. 4 Not Available [facility] (Lab) [address] [facility], [place], [address], 11/09/2022 05:52:50 11/08/19 23 11/08/2022 CBC W/DIF F absolute eosinophils 0.1 10'3/ uL 0.0-0. 7 Not Available [facility] (Lab) [address] [facility], [place], [address], 11/09/2022 05:52:50 11/08/19 23 11/08/2022 CBC W/DIF F absolute basophils 0.0 10'3/ uL 0.0-0. 3 Not Available [facility] (Lab) [address] [facility], [place], [address], 11/09/2022 05:52:50 11/08/19 23 11/08/2022 CBC W/DIF F absolute immature granulocytes 0.1 10'3/ uL no define d refere nce range 023 4:10 AM: P indic ates parti al resul ts on a panel have been relea sed. Addit ional resul ts will follo w. 023 4:10 AM: This resul t has been final verif ied. No addit ional or li ed resul ts are expec james. Not Available [facility] (Lab) [address] [place], [address], 11/09/2022 05:52:50 11/08/19 23 11/08/2022 LIPID PANEL ,AMA (LDL- CALC) total cholesterol 195 mg/dL 0-199 Not Available [facility] (Lab) [address] [place], [address], 11/09/2022 05:52:50 11/08/19 23 11/08/2022 LIPID PANEL ,AMA (LDL- CALC) triglyceride s 125 mg/dL 0.00-1 50.00 NCEP Refer ence Value s for Trigl yceri katarzyna: Inez l: <150 mg/dL Borde rline High: 150 - 199 mg/dL High: 200 - 499 mg/dL Very High: >/= 500 mg/dL Not Available [facility] (Lab) [address] [place], [address], 11/09/2022 05:52:50 11/08/19 23 11/08/2022 LIPID PANEL ,AMA (LDL- CALC) HDL cholesterol 51 mg/dL >40 Not Available [facility] (Lab) [address] [place], [address], 11/09/2022 05:52:50 11/08/19 23 11/08/2022 LIPID PANEL ,AMA (LDL- CALC) LDL cholesterol 119 mg/dL 0-99 high Cutof f value s recom elodia d by the [employer] Delmis stero l Educa tion Progr am: JAK ABLE: Delmis stero l <200 mg/dL LDL <100 mg/dL BORDE RLINE : Delmis stero l 200-2 39 mg/dL LDL 101-1 59 mg/dL HIGHE R RISK: Delmis stero l >240 mg/dL LDL >160 mg/dL , HDL <40 mg/dL Not Available [facility] (Lab) [address] [facility], [place], [address], 11/09/2022 05:52:50 11/08/19 23 11/08/2022 LIPID PANEL ,AMA (LDL- CALC) non-HDL cholesterol 144 mg/dL no refere nce range A reaso nable goal for non-H DL delmis stero l is one that is 30 mg/dL highe r than the LDL delmis stero l goal. Not Available [facility] (Lab) [address] [facility], [place], [address], 11/09/2022 05:52:50 11/08/19 23 11/08/2022 LIPID PANEL ,AMA (LDL- CALC) chol/HDL ratio 3.8 . 0.0-5. 0 Not Available [facility] (Lab) [address] [place], [address], 11/09/2022 05:52:50 11/08/19 23 11/08/2022 CMP(C OMPRE HENSI VE METAB OLIC PANEL ) sodium 140 mmol/ L 133-14 6 Not Available [facility] (Lab) [address] [place], [address], 11/09/2022 05:52:51 11/08/19 23 11/08/2022 CMP(C OMPRE HENSI VE METAB OLIC PANEL ) potassium 4.1 mmol/ L 3.5-5. 1 Not Available [facility] (Lab) [address] [place], [address], 11/09/2022 05:52:51 11/08/19 23 11/08/2022 CMP(C OMPRE HENSI VE METAB OLIC PANEL ) chloride 104 mmol/ L 98-107 Not Available [facility] (Lab) [address] [place], [address], 11/09/2022 05:52:51 11/08/19 23 11/08/2022 CMP(C OMPRE HENSI VE METAB OLIC PANEL ) carbon dioxide 29 mmol/ L 21-31 Not Available [facility] (Lab) [address] [facility], [place], [address], 11/09/2022 05:52:51 11/08/19 23 11/08/2022 CMP(C OMPRE HENSI VE METAB OLIC PANEL ) anion gap 7 mmol/ L 4-13 Not Available [facility] (Lab) [address] [facility], [place], [address], 11/09/2022 05:52:51 11/08/19 23 11/08/2022 CMP(C OMPRE HENSI VE METAB OLIC PANEL ) blood urea nitrogen 11 mg/dL 7-25 Not Available [facility] (Lab) [address] [facility], [place], [address], 11/09/2022 05:52:51 11/08/19 23 11/08/2022 CMP(C OMPRE HENSI VE METAB OLIC PANEL ) creatinine 0.68 mg/dL 0.50-0 .80 Not Available [facility] (Lab) [address] [facility], [place], [address], 11/09/2022 05:52:51 11/08/19 23 11/08/2022 CMP(C OMPRE HENSI VE METAB OLIC PANEL ) egfrcr (CKD-epi 2020) >90 mL/mi n/1.7 3_m2 >=60 Not Available [facility] (Lab) [address] [facility], [place], [address], 11/09/2022 05:52:51 11/08/19 23 11/08/2022 CMP(C OMPRE HENSI VE METAB OLIC PANEL ) calcium 9.0 mg/dL 8.3-10 .5 Not Available [facility] (Lab) [address] [facility], [place], [address], 11/09/2022 05:52:51 11/08/19 23 11/08/2022 CMP(C OMPRE HENSI VE METAB OLIC PANEL ) glucose 70 mg/dL 70-100 Not Available [facility] (Lab) [address] [facility], [place], [address], 11/09/2022 05:52:51 11/08/19 23 11/08/2022 CMP(C OMPRE HENSI VE METAB OLIC PANEL ) protein, total 7.0 g/dL 6.4-8. 3 Not Available [facility] (Lab) [address] [facility], [place], [address], 11/09/2022 05:52:51 11/08/19 23 11/08/2022 CMP(C OMPRE HENSI VE METAB OLIC PANEL ) albumin 4.3 g/dL 3.5-5. 0 Not Available [facility] (Lab) [address] [facility], [place], [address], 11/09/2022 05:52:51 11/08/19 23 11/08/2022 CMP(C OMPRE HENSI VE METAB OLIC PANEL ) ALT 18 units /L 9-43 Not Available [facility] (Lab) [address] [facility], [place], [address], 11/09/2022 05:52:51 11/08/19 23 11/08/2022 CMP(C OMPRE HENSI VE METAB OLIC PANEL ) alkaline phosphatase 83 units /L 40-80 high Not Available [facility] (Lab) [address] [place], [address], 11/09/2022 05:52:51 11/08/19 23 11/08/2022 CMP(C OMPRE HENSI VE METAB OLIC PANEL ) AST 13 units /L 13-39 Not Available [facility] (Lab) [address] [place], [address], 11/09/2022 05:52:51 11/08/19 23 11/08/2022 CMP(C OMPRE HENSI VE METAB OLIC PANEL ) bilirubin, total 0.6 mg/dL 0.2-1. 2 Not Available [facility] (Lab) [address], [place], [address], 11/09/2022 05:52:51 11/08/19 23 11/08/2022 TSH, REFLE X FREE T4 TSH 0.82 uIU/m L 0.30-5 .33 Not Available [facility] (Lab) [address], [place], [address], 11/09/2022 05:52:51 11/08/1911/08/2022 PROLA CTIN prolactin, total 14.10 NG/mL 4.79-2 3.30 This assay was perfo rmed using [employer] ratio n reage nts and test kits. Value s obtai gutierrez with other assay metho ds or kits canno t be used inter li eably . Not Available [facility] (Lab) [address], [place], [address], 11/09/2022 05:52:52 11/08/1911/08/2022 HEMOG LOBIN A1C hemoglobin A1C 5.3 % 0-5.6 The Ameri can [employer] i[employer] n recom mends that a prima ry goal of thera py shoul d be a HBA1C of < 7% and that physi cians shoul d reeva luate the treat ment regim en in patie nts with HBA1C value s consi stent ly > 8%. <5.7% Inez l 5.7 - 6.4% Incre ased risk for diabe martine >=6.5 % Diagn ostic of diabe martine <7.0% Goal of thera py >8.0% Actio n sugge sted Not Available [facility] (Lab) [address] , [place], [address], 11/09/2022 05:52:52 11/08/19 23 11/08/2022 CT/GC AND TRICH OMONA S VAGIN YAMILETH (RRNA ), URINE chlamydia trachomatis, PCR Negati ve negati ve Not Available [facility] (Lab) [address] [facility], [place], [address], 11/09/2022 13:37:09 11/08/19 23 11/08/2022 CT/GC AND TRICH OMONA S VAGIN YAMILETH (RRNA ), URINE neisseria gonorrhoeae, PCR Negati ve negati ve Not Available [facility] (Lab) [address] [facility], [place], [address], 11/09/2022 13:37:09 11/08/19 23 11/08/2022 CT/GC AND TRICH OMONA S VAGIN YAMILETH (RRNA ), URINE trichomonas vaginalis ribosomal RNA (rrna) Negati ve negati ve Not Available [facility] (Lab) [address] [facility], [place], [address], 11/09/2022 13:37:09 10/03/20 23 10/03/2023 CULTU RE: URINE result report SEE RESULT S BELOW abnormal Test: Cultu re: Urine Speci men Sourc e: Urine Voide d Speci men Type: Urine Speci men Date: 2022 1:36 PM Resul t Date: 2022 1:02 PM Resul t Statu s: Final resul t Abnor mal: Yes Bennett wood Lab: [facility] [address] [facility] [address] Tel: CULTU RE ----- ----- ----- --- 10,00 0-25, 000 CFU/m l Strep tococ cus agala ctiae (Grou p B) (Abno rmal) Strep tococ cus agala ctiae (Beta strep Group B Strep ) remai ns unive rsall y susce ptibl e to penic illin , cefaz merlene and vanco mycin . If clind amyci n is being consi dered for intra partu m proph ylaxi s, pleas e conta ct the lab withi n 5 days. Not Available [facility] (Lab) [address] [facility], [place], [address], 10/05/2023 14:06:53 10/03/20 23 10/03/2023 urina lysis , dipst ick Leukocytes Trace Not Available [facility] [address], [place], [address], 10/03/2023 13:26:17 10/03/20 23 10/03/2023 urina lysis , dipst ick Nitrite neg Not Available [place] [address], [place], [address], 10/03/2023 13:26:17 10/03/20 23 10/03/2023 urina lysis , dipst ick Urobilinogen neg Not Available [facility] [address], [place], [address], 10/03/2023 13:26:17 10/03/20 23 10/03/2023 urina lysis , dipst ick Protein trace Not Available [place] [address], [place], [address], 10/03/2023 13:26:17 10/03/20 23 10/03/2023 urina lysis , dipst ick pH 5 Not Available [place] [address], [place], [address], 10/03/2023 13:26:17 10/03/20 23 10/03/2023 urina lysis , dipst ick Blood +++ Not Available [place] [address], [place], [address], 10/03/2023 13:26:17 10/03/20 23 10/03/2023 urina lysis , dipst ick Specific Bonita 1.020 Not Available [facility] [address], [place], [address], 10/03/2023 13:26:17 10/03/20 23 10/03/2023 urina lysis , dipst ick Ketone neg Not Available [place] [address], [place], [address], 10/03/2023 13:26:17 10/03/20 23 10/03/2023 urina lysis , dipst ick Bilirubin neg Not Available [facility] [address], [place], [address], 10/03/2023 13:26:17 10/03/20 23 10/03/2023 urina lysis , dipst ick Glucose neg Not Available [place] [address], [place], [address], 10/03/2023 13:26:17 10/03/20 23 10/03/2023 urina lysis , dipst ick Appearance clear Not Available [facility] [address], [place], [address], 10/03/2023 13:26:17 10/03/20 23 10/03/2023 urina lysis , dipst ick Color dark yellow Not Available [place] [address], [place], [address], 10/03/2023 13:26:17 02/12/20 24 02/12/2024 urina lysis , dipst ick pH 8 Not Available [place] [address], [place], [address], 02/12/2024 12:06:20 02/12/20 24 02/12/2024 urina lysis , dipst ick Specific Bonita 1.000 Not Available [facility] [address], [place], [address], 02/12/2024 12:06:20 Result Notes None recorded. Problems Name Problem SNOMED Code Status Onset Date Resolution Date Notes Provider Name and Address Organization Details Recorded Time Depressive disorder 76881170 Completed 202008/26/2022 Ayesha Guardado null, [facility] 2 12:14:55 Migraine 30800761 Completed 202008/26/2022 no aura Ayesha glover [facility] 2 12:14:55 Problem Notes None recorded. Medical Equipment None Reported. Allergies No known drug allergies Medications Name Sig Start Date Stop Date Status Note LastModified by Organization Details LastModified Time medroxyprog esterone 10 mg tablet TAKE 1 TABLET BY MOUTH EVERY DAY FOR 10 DAYS 02/18 completed Not Available Not Available Not Available buspirone 5 mg tablet TAKE 1 TABLET 3 TIMES A DAY BY ORAL ROUTE. 02/11 completed Not Available Not Available Not Available doxycycline hyclate 100 mg capsule TAKE 1 CAPSULE BY MOUTH TWICE A DAY FOR 14 DAYS 08/28 completed Not Available Not Available Not Available lamotrigine 200 mg tablet TAKE 1 TABLET BY MOUTH EVERY DAY IN THE MORNING 06/19 completed Not Available Not Available Not Available ibuprofen 800 mg tablet TAKE 1 TABLET BY MOUTH EVERY 8 HOURS WITH FOOD NEEDED 08/28 completed Not Available Not Available Not Available fluconazole 150 mg tablet TAKE 1 TABLET BY MOUTH DIRECTED 09/06 completed Not Available Not Available Not Available fluconazole 200 mg tablet TAKE 1 TABLET EVERY OTHER DAY X 3 DOSES. active Not Available Not Available No t Available sumatriptan 25 mg tablet PLEASE SEE ATTACHED FOR DETAILED DIRECTION S 11/08 completed Not Available Not Available Not Available famotidine 40 mg tablet TAKE 1 TABLET BY MOUTH EVERY DAY FOR 10 DAYS 02/18 completed Not Available Not Available Not Available prednisone 20 mg tablet TAKE 2 TABLETS BY MOUTH EVERY DAY FOR 5 DAYS 02/18 completed Not Available Not Available Not Available pimecrolimu s 1 % topical cream APPLY TO RASH ON EYEBROWS TWICE A DAY UNTIL RESOLVED 02/11 completed Not Available Not Available Not Available sumatriptan 50 mg tablet 11/08 completed Not Available Not Available Not Available topiramate 25 mg tablet TAKE 1 TABLET BY MOUTH EVERY DAY IN THE MORNING 06/19 completed Not Available Not Available Not Available metronidazo le 500 mg tablet TAKE 1 TABLET BY MOUTH TWICE A DAY FOR 14 DAYS 08/28 completed Not Available Not Available Not Available acetaminoph en 300 mg-codeine 30 mg tablet TAKE 2 TABLETS BY MOUTH EVERY 6 HOURS NEEDED 08/28 completed Not Available Not Available Not Available prochlorper azine maleate 10 mg tablet 08/28 completed Not Available Not Available Not Available triamcinolo ne acetonide 0.1 % topical cream 1 APPLICATI ON TOPICALLY TWICE A DAY FOR 7 DAYS 02/18 completed Not Available Not Available Not Available lamotrigine 25 mg tablet TAKE 1 TABLET BY MOUTH THREE TIMES A DAY DIRECTED MORNING/3 PM/BEDTIM E 08/28 completed Not Available Not Available Not Available nystatin-tr iamcinolone 100,000 unit/gram-0 .1 % topical ointment APPLY TO THE AFFECTED AREA(S) BY TOPICAL ROUTE 2 TIMES PER DAY NEEDED active Not Available Not Available No t Available oxycodone-a cetaminophe n 5 mg-325 mg tablet TAKE 1 TABLET BY MOUTH EVERY 4 TO 6 HOURS NEEDED FOR PAIN 08/28 completed Not Available Not Available Not Available terbinafine HCl 250 mg tablet TAKE 1 TAB DAILY X2 WEEKS 02/11 completed Not Available Not Available Not Available amoxicillin 875 mg tablet TK 1 T PO BID FOR 14 DAYS 11/08 completed Not Available Not Available Not Available phenazopyri dine 100 mg tablet TAKE 1 TABLET 3 TIMES A DAY BY ORAL ROUTE NEEDED FOR 7 DAYS, FOR DYSURIA. 02/11 completed Not Available Not Available Not Available nitrofurant oin macrocrysta l 100 mg capsule TAKE 1 CAPSULE BY MOUTH AT BEDTIME 08/28 completed Not Available Not Available Not Available nicotine 21 mg/24 hr daily transdermal patch APPLY 1 PATCH DAILY TO SKIN 08/28 completed Not Available Not Available Not Available fluoxetine 10 mg capsule 02/11 completed Not Available Not Available Not Available amoxicillin 400 mg/5 mL oral suspension 875 MG (10.9375 ML) ORALLY EVERY 12 HOURS FOR 10 DAYS active Not Available Not Available No t Available rizatriptan 5 mg disintegrat ing tablet 08/28 completed Not Available Not Available Not Available clobetasol 0.05 % scalp solution PLEASE SEE ATTACHED FOR DETAILED DIRECTION S 02/11 completed Not Available Not Available Not Available ondansetron 4 mg disintegrat ing tablet DISSOLVE 1 TABLET ON THE TONGUE TWICE DAILY NEEDED FORNAUSEA AND VOMITING. MAXIMUM DAILY DOSE IS 2 TABLETS 09/06 completed Not Available Not Available Not Available topiramate 100 mg tablet TAKE 1 TABLET BY MOUTH AT BEDTIME 08/28 completed Not Available Not Available Not Available dicyclomine 10 mg capsule TAKE 1 CAPSULE BY MOUTH THREE TIMES A DAY 02/11 completed Not Available Not Available Not Available lamotrigine 100 mg tablet TAKE 1 TABLET BY MOUTH TWICE A DAY DIRECTED 08/28 completed Not Available Not Available Not Available diazepam 5 mg tablet TAKE ONE TO TWO TABLETS BY MOUTH X 1 DOSE FOR ANXIETY RELATED TO NEEDLES / VACCINATI ON 11/08 completed Not Available Not Available Not Available NuvaRing 0.12 mg-0.015 mg/24 hr vaginal INSERT 1 RING VAGINALLY . REMOVE AFTER 3 WEEKS AND WAIT AN ADDITIONA L WEEK BEFORE INSERTING NEW RING active Not Available Not Available No t Available aripiprazol e 10 mg tablet TAKE 1 & 1/2 TABLET BY MOUTH EVERY DAY FOR 90 DAYS 08/28 completed Not Available Not Available Not Available atomoxetine 25 mg capsule TAKE ONE CAPSULE DAILY FOR TWO WEEKS, THEN TAKE TWO CAPSULES DAILY. 02/11 completed Not Available Not Available Not Available aripiprazol e 5 mg tablet TAKE 1 TABLET BY MOUTH EVERY DAY 06/19 completed Not Available Not Available Not Available ciprofloxac in 0.3 %-dexametha sone 0.1 % ear drops,suspe nsion 4 DRP INTO RIGHT EAR EVERY 12 HOURS FOR 7 DAYS 02/11 completed Not Available Not Available Not Available bupropion HCl XL 300 mg 24 hr tablet, extended release TAKE 1 TABLET BY MOUTH EVERY DAY 02/11 completed Not Available Not Available Not Available bupropion HCl XL 150 mg 24 hr tablet, extended release TAKE 1 TABLET BY MOUTH EVERY DAY IN THE MORNING 02/11 completed Not Available Not Available Not Available topiramate 50 mg tablet TK 1 AND 1/2 TS PO HS 11/08 completed Not Available Not Available Not Available nitrofurant oin monohydrate /macrocryst als 100 mg capsule TAKE 1 CAPSULE EVERY 12 HOURS BY ORAL ROUTE WITH MEALS FOR 7 DAYS, FOR UTI. active Not Available Not Available No t Available duloxetine 30 mg capsule,del ayed release TAKE 1 CAPSULE BY MOUTH EVERY DAY 02/11 completed Not Available Not Available Not Available duloxetine 60 mg capsule,del ayed release TAKE 1 CAPSULE BY MOUTH EVERY DAY 02/11 completed Not Available Not Available Not Available Topamax 09/06 completed Not Available Not Available Not Available desvenlafax ine succinate ER 50 mg tablet,exte nded release 24 hr TAKE 1 TABLET BY MOUTH EVERY MORNING 08/28 completed Not Available Not Available Not Available B12 08/28 completed Not Available Not Available Not Available Probiotic 08/28 completed Not Available Not Available Not Available Vestura (28) 3 mg-0.02 mg tablet TAKE 1 TABLET BY MOUTH EVERY DAY 08/28 completed Not Available Not Available Not Available desvenlafax ine succinate ER 25 mg tablet,exte nded release 24 hr TAKE 1 TABLET EVERY DAY BY ORAL ROUTE IN THE MORNING. 08/28 completed Not Available Not Available Not Available Vraylar 1.5 mg capsule TAKE 1 CAPSULE BY MOUTH EVERY DAY FOR 14 DAYS active Not Available Not Available No t Available Vraylar 4.5 mg capsule TAKE 1 CAPSULE BY MOUTH EVERY DAY active Not Available Not Available No t Available Vraylar 3 mg capsule TAKE 1 CAPSULE BY MOUTH EVERY DAY FOR 14 DAYS active Not Available Not Available No t Available Aimovig Autoinjecto r 140 mg/mL subcutaneou s auto-inject or 140 MG SUBCUTANE OUSLY MONTHLY active Not Available Not Available No t Available Ubrelvy 100 mg tablet PLEASE SEE ATTACHED FOR DETAILED DIRECTION S 02/11 completed Not Available Not Available Not Available [facility] ODT 75 mg disintegrat ing tablet 75 MG ORALLY ONCE FOR MIGRAINE HEADACHE TAKE 1 TABLET EVERY OTHER DAY 02/11 completed Not Available Not Available Not Available Qulipta 60 mg tablet TAKE 1 TABLET BY MOUTH DAILY 02/18 completed Not Available Not Available Not Available Vitals Date Recorded Body height Body mass index (BMI) Percentile per age and sex Body weight Systolic blood pressure Diastolic blood pressure Provider Name and Address Organization Details Last Updated DateTime 08/28/2022 172.72 cm 90 % 36442.6 3 g 120 mm[Hg] 80 mm[Hg] Ayesha Guardado [facility] 2 14:18:56 Date Recorded Body height Body mass index (BMI) Body mass index (BMI) Percentile per age and sex Body weight Systolic blood pressure Diastolic blood pressure Provider Name and Address Organization Details Last Updated DateTime 3 172.72 cm 27.4 kg/m2 90 % 24779.6 3 g 118 mm[Hg] 74 mm[Hg] Josi armendariz [facility] 3 11:43:06 Date Recorded Body height Body mass index (BMI) Percentile per age and sex Body mass index (BMI) Body weight Provider Name and Address Organization Details Last Updated DateTime 02/18/2023 172.72 cm 94 % 30.3 kg/m2 31845.88 g Ayesha [facility] 02/18/2023 16:36:37 Date Recorded Systolic blood pressure Diastolic blood pressure Provider Name and Address Organization Details Last Updated DateTime 02/18/2023 122 mm[Hg] 80 mm[Hg] Shelley Armendariz, [facility] [address], [place], [address], [facility] 02/18/2023 16:47:21 Date Recorded Body height Body mass index (BMI) Body mass index (BMI) Percentile per age and sex Body weight Systolic blood pressure Diastolic blood pressure Provider Name and Address Organization Details Last Updated DateTime 3 172.72 cm 32.1 kg/m2 95.36 % 09747.9 9 g 124 mm[Hg] 74 mm[Hg] Ayesha [facility] 3 13:22:06 Date Recorded Body height Body mass index (BMI) Body mass index (BMI) Percentile per age and sex Body weight Systolic blood pressure Diastolic blood pressure Provider Name and Address Organization Details Last Updated DateTime 4 172.72 cm 28.7 kg/m2 91 % 93574.9 6 g 124 mm[Hg] 85 mm[Hg] Yanni Gale [facility] 4 12:00:47 Social History Question Answer Notes LastModified by Organizat ion Details LastModified Time Tobacco Smoking Status Never Smoker Ansley Evans MD [address], [place], [address], [facility] 11/08/2020 11:51:50 Are You Blind Or Do You Have Difficulty Seeing? No Information n ot available 11/08/2022 In The 14 Days Before Symptom Onset, Have You Had Close Contact With A Laboratory-confirm ed COVID-19 While That Case Was Ill? No Information n ot available 02/12/2024 In The 14 Days Before Symptom Onset, Have You Had Close Contact With A Person Who Is Under Investigation For COVID-19 While That Person Was Ill? No Information not available 02/12/2024 Have You Been To An Area Known To Be High Risk For COVID-19? No Information not available 02/12/2024 Are You Deaf Or Do You Have Serious Difficulty Hearing? No Information not available 11/08/2022 What Type Of Diet Are You Following? REGULAR Information n ot available 11/08/2022 Sex: Unknown Functional Status Question Answer Note LastModified by Organizat ion Details LastModified Time Do you have difficulty walking or climbing stairs? No Information not available 11/08/2022 Are you able to walk? YESWOREST Information not available 11/08/2022 Are you able to care for yourself? Yes Information not available 11/08/2022 Do you have difficulty dressing or bathing? No Information not available 11/08/2022 What is your exercise level? Occasional Information not available 11/08/2022 Mental Status None recorded. Family History Relationship Description Onset Age of this Age Resolved Age Notes LastModified by Organization Details LastModified Time Mother Hypertensive disorder smcaley Not available 2020 11:48:02 Mother Mental disorder smcaley Not available 2020 11:48:10 Father Diabetes mellitus smcaley Not available 2020 11:48:25 Father Hypercholest erolemia smcaley Not available 2020 11:49:06 Father Hypertensive disorder smcaley Not available 2020 11:49:12 Maternal Grandmother Hypercholest erolemia smcaley Not available 2020 11:49:06 Maternal Grandmother Hypertensive disorder smcaley Not available 2020 11:49:19 Maternal Grandmother Carcinoma in situ of lung smcaley Not available 04/2021 11:49:46 Maternal Grandmother Carcinoma in situ of ovary smcaley Not available 2020 11:50:13 Paternal Grandfather Hypercholest erolemia smcaley Not available 2020 11:49:06 Paternal Grandfather Hypertensive disorder smcaley Not available 2020 11:49:29 Maternal Grandfather Hypercholest erolemia smcaley Not available 2020 11:49:06 Maternal Grandfather Hypertensive disorder smcaley Not available 2020 11:49:26 Maternal Aunt Mental disorder smcaley Not available 2020 11:50:23 Medical History Condition Response Allergies (Food, seasonal, environmental ) N Other N Breast Cancer N Drug/Latex Allergies/Reactions N Blood Transfusion N Dermatologic Disorders N Lung Disease N Defects or Inherited Disease N Breast Problem N Gestational Diabetes N Hematologic disorders N Anesthesia Complications N History of STI N Deep Vein Thrombosis N Polycystic ovary syndrome N Anxiety Disorder N Autoimmune disease N Arthritis N Infertility N Polyps N Acid Reflux (GERD) N History of abnormal pap N Cancer N Stroke N Varicosities N Neurologic/Epilepsy N Endometriosis N High Cholesterol N Headaches Y Fibromyalgia N Kidney Disease N Heart Problems N Kidney or Bladder Problems N Thyroid Problems N GI Problems N Eating Disorder N Anemia N Art (IVF or FET) N Psychiatric Illness N Ovarian Cancer N Diabetes N Pulmonary (TB, Asthma) N Hepatitis/Liver Disease N Eczema N Urinary Tract Infection N Abuse/Domestic Violence N Asthma N Trauma/Violence N Depression/ depression Y Heart Disease N Pre-Eclampsia N Hypertension N Osteoporosis N Thrombophilias N Gynecological History Statement/Question Response Flow Heavy Date of Last Mammogram Date of LMP 02/02/2024 Was last menstrual period normal Y STIs/STDs N HPV Vaccine Y Duration of Flow (days) 3 Current Control Method Vaginal Rin g Are cycles usually normal Y Sexually Active? Y Menses Monthly Y Age of first menstrual cycle 11 Date of Last Pap Smear Sexual Problems? N LMP Approximate Obstetrics History GPAL:G 0 P 0 0 0 0 Past Encounters Encounter ID Performer Location Encounter Start Date Encounter Closed Date Diagnosis/Indication Diagnosis SNOMED-CT Code Diagnosis ICD10 Code Diagnosis Note [id number] Ansley Evans MD [place] [address],[place] [address] 11/08/2020 11:26:03 11/08/2020 17:25:08 Candidal vulvovaginitis 05319403 B37.3 Venereal d isease screening 459341311 Z11.3 [id number] Ansley Evans MD [place] [address],[place] [address] 06/19/2021 12:40:17 06/19/2021 14:25:04 Candidal vulvovaginitis 86424810 B37.3 [id number] Ruma Appiah [place] [address],[place] [address] 08/21/2021 13:59:08 08/21/2021 15:08:19 Dysuria 92356311 R30.9 Increase water and decrease caffeine. Will start macrobid and also diflucan for history of yeast infection. Call or return if any worsening of symptoms, fever, back pain or flu like symptoms. Urine sent for culture. [id number] Lanie Valenzuela [place] [address],[place] [address] 09/06/2021 15:38:53 09/06/2021 16:39:24 Urgent desire to urinate 16037191 R39.15 [id number] Shelley Armendariz [facility] [address],[place] [address] 09/12/2021 16:08:18 09/12/2021 16:51:53 Urgent desire to urinate 78190184 R39.15 She is asymptomat ic today.We agreed to recheck urine dip (recent 09/06 dip +leuks but cx was neg) & send urine std screen for reassuranc e.We will call with results & treat of issues.She will monitor at this time & report any changes in her status or sx's. Time spent in visit is a total of 15 mins with at least 50% of visit consisting of counseling and review of plan of care.Addit ional precaution laureen measures were taken to minimize potential exposure to the Covid-19 virus during this patient s visit, including available hand first coat operator upon arrive, temperatur e check and being asked a series of screening questions. All staff wore face coverings during this encounter, as well as provided additional cleaning and sanitizing of all surfaces, including countertop s, pens, chairs, door handles, light switches, etc, prior to and following the patient s visit. [id number] Shelley Armendariz , [facility] [address],[place] [address] 08/28/2022 13:56:10 08/28/2022 14:47:29 Contraception care management 477656213 Z30.9 Discussed all control options in great detail. Pt would like to start nuvaring. She is aware of the risks and benefits. She does not have any medical condition that is contraindi cated with the use of estrogen containing control. Pt will place the nuvaring on the first friday following the start of her period. She is aware it is not effective for control the first month. She is also aware of the importance of timely insertion and removal. Encouraged use of condoms as the nuvaring does not protect against STD's. Will return in 3 months for med check. Consent was read and signed. Pt verbalized understand ing. Perform STD serum when returns in 3mos.urine std sent todayIf method triggers H/A's we will need to consider progestero ne only method but migraines without aura can be appropriat e for E/P or POP methods. Patient is to contact office or go to nearest ED/Urgent care if fever >/= 100.1, pain, excessive bleeding, unusual drainage or swelling in area of concern; or experienci ng worsening sx's or new onset of concerning sx's. Understand ing verbalized . All questions answered to patient satisfacti on. Time spent in visit is a total of 30 mins with at least 50% of visit consisting of counseling and review of plan of care. 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 Take provera since UPT is neg & complete labs.If period starts use nuvaring & f/u in 2mos as planned. 2. IF no period occurs after 2wks contact office for US appt STD urine sentLabs updated todayWill reach out with results. Counseled on medication R/B's, Most common side effects, & use. All questions were answered to patient satisfacti on. Time spent in visit is a total of 15 mins with at least 50% of visit consisting of counseling and review of plan of care. Adult [facility] th examination 351489384 Z00.00 Requested adult panel [id number] Shelley Armendariz [facility] [address],[place] [address] 02/18/2023 16:22:52 02/18/2023 17:03:52 Contraception care management 295185625 Z30.9 TOday we discussed fertility. She is currently on nuvaring-s o any testing checking ovarian function will be skewed for this reason.We discussed BC, fertility, Period Hx, issues that can cause fertility problems.A t this time, not looking to achieve ; just felt worried I couldn't have kids b/c I've been on control. W e discussed this and reassured that there is no supporting research that shows BC is a cause of infertilit y issues. She verbalizes understand ing and denies any further questions or needs.Her mother was also present for this conversati on & agreeable. Reviewed use of her nuvaring & had her verbalize how to use this bc to ensure she is using it correctly. RTO PRN or x 1yr Time spent in visit is a total of 10 mins with at least 50% of visit consisting of counseling and review of plan of care. [id number] Shelley Armendariz [facility] [address],[place] [address] 10/03/2023 13:12:35 10/07/2023 09:07:07 Urinary symptoms 015849611 R39.9 Suspect UTI based on subjective sx's and urine dip.Agreea ble to treat while we await return of results. Counseled on medication R/B's, Most common side effects, & use. All questions were answered to patient satisfacti on. Time spent in visit is a total of 18 mins with at least 50% of visit consisting of counseling and review of plan of care. [id number] DEANNE [facility] [address] [address] 02/12/2024 11:44:22 02/12/2024 12:34:02 Urinary symptoms 778281245 R39.9 Vaginitis 82461085 N76.0 Took recent abx for ear infection; now with sx's of vag d/c, itching internal/e xternal and feeling of ext discomfort . Skin king when urine hits it.Decline d need for STD screen-mon ogamousWil l treat and if any further issues reach out to discuss. Counseled on medication R/B's, Most common side effects, & use. All questions were answered to patient satisfacti on. Time spent in visit is a total of 21 mins with at least 50% of visit consisting of counseling and review of plan of care. Health Concerns Section Related Observation LastModified by Organization Detai ls LastModified Time None Recorded Concern Status LastModified by Organization Details LastModified Time None Recorded Advance Directives Directive None Recorded Payers Encounter Date Sequence Insurance Name Policy Number Policy Moore Covered Member ID Moore Member ID Guarantor Name 08/28/2022 1 [place] [id number] Jeannine Orozco Solano [id number] 2M [facility] 11/08/2022 1 [place] [id number] Jeannine Orozco Solano [id number] 2M [facility] 02/18/2023 1 [place] [id number] Jeannine Orozco Solano [id number] 2M [facility] 10/03/2023 1 [place] [id number] Jeannine Orozco Solano [id number] 2M Maria Luisa Solano 02/12/2024 1 [facility] ([place] [id number] Jeannine Solano [id number] 2M Maria Luisa Solano Notes Date Note Type Note Provider Name and Address Organization Details Recorded Time 08/28/2022 text/html Here today for B C consult & suggestion for PCP.Requests STD screen.Hx reviewed & updated Shelley Armendariz [facility] [address], [place], [address], [facility] 08/28/2022 14:42:23 11/08/2022 text/html Patient is a 17y o white female here today for concerns of secondary amenorrhea.Hx of irregular cycles but usually occurs within 32-45 daysNo other sx's presentOtherwise feels fineHas taken multiple UPT's at home & all neg. Neg pain of abd/pelvis/flankNeg urinary sx'sNeg GI sx'sNeg N/V/F/C/DNeg Vag d/c, odor, irritation, itching Shelley Armendariz [facility] [address], [place], [address], [facility] 11/08/2022 12:19:52 02/18/2023 text/html Here today to di scuss fertility. Shelley Armendariz [facility] [address], [place], [address], [facility] 02/18/2023 16:52:37 10/03/2023 text/html Maria Luisa is a 18yo here today with sx's of dysuria, urgency, frequency which has presented this past week. Neg pain of abd/pelvis/flankNeg new sexual partnerNeg GI sx'sNeg N/V/F/C/DNeg Vag d/c, odor, irritation, itching Shelley Armendariz [facility] [address], [place], [address], [facility] 10/06/2023 16:21:42 02/12/2024 text/html Vaginal/Vulvar ProblemReported bypatient.Location:vu lva; vagina Onset/Timing:abrupt Duration:present for 1-7 days Quality:itching; burning; irritation Severity:mild Context:sexually active; condom use: yes; recent antibiotic use Alleviating Factors:none Aggravating Factors:burning with urination Associated Symptoms:no vaginal itching; no vaginal irritation; no vaginal pain; no vulvar pain; no vulvar lesions; no pelvic pain; no dyspareunia; no dysuria; no fever; no abdominal pain;vulvar itching/irritation;vu lvar swelling/erythema; + odorless discharge Shelley Armendariz, [facility] [address], [place], [address], [place] [facility] 02/12/2024 12:27:31 OBGyn Episode No OBEpisode recorded.
--- OUTSIDE RECORDS SUMMARY | 2024-12-10 13:30 | XMS_ITS ---
Author Organization [facility] Address [address] [place] [address] Care Team Providers Care Upholstery Technician Name Role Phone Thai Barnett Primary Care Provider Unavailabl Delilah Gutierrez Unavailable [phone] [facility], Provider Unavailable Unavailab le REASON FOR VISIT [facility] To [facility] Conversion Encounter Medications Medication SIG (Take, Route, [...] Active Encounters Encounter Location Date Provider Diagnosis [address] [address] 04/17/2024 Provider [facility] Idiopathic urticaria L50.1 Assessments Encounter Date Diagnosis (ICD Code) Assessment Notes Treatment Notes Treatment Clinical Notes Section Notes 04/17/2024 Idiopathic urticaria (ICD-10 - L50.1) Plan Of Treatment Medication Medication Name Sig Start Date Stop Date Notes Cetirizine HCl 10 MG 1 tab(s) orally bid 01/29/2023 Famotidine 40 MG 1 tab(s) orally bid 01/29/2023 Progress Notes * [place] GÓMEZ:2005 (19 yo F)Acc No.[id number]:04/17/2024 Patient: Maria Luisa COTTON Provider: Margaux Cespedes :2005 A ge:19 Y S ex:Female Date:04/17/2024 Address:[address] [place] [address] , [place], [id number] Pcp:Thai Barnett Subjective: * Chief Complaints: * 1 . Mult[facility] To Med[facility] Conversion Encounter. * Medical History: * Medications: [...] Electronic signature of Prov ider [facility] on 12/10/2024 at 01:30 PM YOUTH CARE PROFESSIONAL Sign off status: Pending * Provider: Margaux Cespedes Date: 0 04/17/2024 Generated for Leodan torres/Jhon/Willie on: 0 12/10/2024 01:30 PM YOUTH CARE PROFESSIONAL
--- OUTSIDE RECORDS SUMMARY | 2024-12-10 13:31 | XMS_ITS ---
Author Organization [facility] Address [address] [place] [address] Care Team Providers Care Breaker Tender Name Role Phone ARCELIA DANIELS PA-C Primary Care Provider Cyndi Nix Unavailable [phone] Allergies No Known Allergies REASON FOR VISIT follow up Medications Medication SIG (Take, Route, Frequency, Duration) Notes Start Date End Date Status lamoTRIgine 25 MG 1 tablet Orally once daily for 14 days then 2 tablets daily 09/16/2024 Active NUVARING 0.12 MG-0.015 MG/24 HR VAGINAL *Reorder from [facility] for eRx and Interaction Alerts* 03/09/2024 Unknown AIMOVIG AUTOINJECTOR 140 MG/ML SUBCUTANEOUS AUTO-INJECTOR *Reorder from [facility] for eRx and Interaction Alerts* 03/09/2024 Unknown Nurtec 75 MG Oral *Reorder from [facility] for eRx and Interaction Alerts* 03/09/2024 Unknown FLUoxetine HCl 20 MG 1 capsule Orally Once a day for 90 days Active Social History Tobacco Use: Social History Observation Description Date Details (start date - stop date) Never Smoker NA - NA Sex Assigned At : Social History Observation Description Sex Assigned At Female Tobacco Control (Standard) Question Answer Notes Tobacco use: Nonsmoker Encounters Encounter Location Date Provider Diagnosis [facility] [address] [place] [address] 09/16/2024 Cyndi Stephens Major depressive disorder, recurrent, moderate F33.1 ; Generalized anxiety disorder F41.1 and Attention-deficit hyperactivity disorder, combined type F90.2 Assessments Encounter Date Diagnosis (ICD Code) Assessment Notes Treatment Notes Treatment Clinical Notes Section Notes 09/16/2024 Major depressive disorder, recurrent, moderate (ICD-10 - [...] to present immediately to the emergency room. 09/16/2024 Generalized anxiety disorder (ICD-10 - F41.1) 09/16/2024 Attention-deficit hyperactivity disorder, combined type (ICD-10 - F90.2) 09/16/2024 Other Stop abilify. Start lamictal- take 25mg daily for two weeks then 50mg daily for mood, irritability. Patient educated on all medications including potential benefits, side effects, risks. Educated on proper dosing schedule and importance of compliance. Plan Of Treatment Medication Medication Name Sig Start Date Stop Date Notes lamoTRIgine 25 MG 1 tablet Orally once daily 09/16/2024 ARIPiprazole 5 MG 1 tablet Orally Once a day for 30 days FLUoxetine HCl [...] present immediately to the emergency room. Other Stop abilify. Start lamictal- take 25mg daily for two weeks then 50mg daily for mood, irritability. Patient educated on all medications including potential benefits, side effects, risks. Educated on proper dosing schedule and importance of compliance. Next Appt Details Follow Up: 4 Weeks, Reason: med follow up Provider Name:Cyndi Stephens, 01/06/2025 08:00:00 AM, [facility] [facility] [address], [facility] [address] [place], [address], Progress Notes * SHELLY GÓMEZADOB:2005 (19 yo F)Acc No.[id number]:09/16/2024 Patient: CARLINE COTTON Provider: Sukhjinder STEPHENS PMHNP :2005 A ge:19 Y S ex:Female Date:09/16/2024 Address:[address] [place] [address] , [id number] Pcp:ARCELIA DANIELS PA-C Subjective: * Chief Complaints: * 1 . Follow up. * HPI: H istory of Presenting Problem: Anxiety R ates anxiety 4-8/10 with 10 being most severe.?. D epression R ates depression 5/10 with 10 being most severe. . M ood lability?no hx of pal . P sychosis n o hx of psychosis . S ubstance abuse A lcohol use about monthly . S uicidal ideation D enies . A DHD f orgetful in daily activities, easily distracted by extraneous stimuli, does not follow through on instructions and fails to finish work. Here for follow up. Fluoxetine increased last apt. She has been forgetting to take the Abilify at bedtime, rarely taking it since it is in the evening. States depression is not doing so hot . 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 Anxiey is awful . She gets anxious going out in public, especially with herself. Denies panic attacks. Continues to feel irritable. Sleep is good, getting about 9 hours nightly. Appetite is good. D epression Screening: MURPHY-7 (2018 Edition) F eeling nervous, anxious, or on edge?More than half the days, N ot being able to stop or control worrying S everal ,?Worrying too much about different things S everal days, T rouble relaxing S ever, B eing so restless that it is [...] days, F eeling down, depressed, or hopeless N ot at all, T rouble falling or staying asleep, or sleeping too much S everal days, F eeling tired or having little energy M ore than half the days, P oor appetite or overeating N ot at all, F eeling bad about yourself or that you are a failure, or have let yourself or your family down N ot at all, T rouble concentrating on things, such as reading the newspaper or watching television M ore than half the days, M oving or speaking so slowly that other people could have noticed; or the opposite, being so fidgety or restless that you have been moving around a lot more than usual N ot at all,?Thoughts that you would be better off or of hurting yourself in some way N ot at all.? * ROS: P sychiatric: Patient denies s uicidal thoughts, pal. P atient complains of a nxiety, irritability. Romulo Hernand[facility] for details. * Medical History: P roblems: Alcohol abuse, Alcohol dependence, Attention deficit hyperactivity disorder, combined type, Generalized anxiety disorder, Malaise and fatigue, Moderate recurrent major depression, ,. * Surgical History: E ardrum revision (50914) . * Family History: M aternal Aunt: Depressive [...] A re you your own decision-maker Y es. * Medications: T aking FLUoxetine HCl 20 MG Capsule 1 capsule Orally Once a day , Not-Taking ARIPiprazole 5 MG Tablet 1 tablet Orally Once a day , Discontinued Phentermine HCl 30 MG Capsule 1 capsule Orally Once a day , Unknown NUVARING 0.12 MG-0.015 MG/24 HR VAGINAL , Notes to Pharmacist: *Reorder from [facility] for eRx and Interaction Alerts*, Unknown Nurtec 75 MG Tablet Disintegrating Oral , Notes to Pharmacist: *Reorder from [facility] for eRx and Interaction Alerts*, Unknown AIMOVIG AUTOINJECTOR 140 MG/ML SUBCUTANEOUS AUTO-INJECTOR , Notes to Pharmacist: *Reorder from [facility] for eRx and Interaction Alerts*, Medication List reviewed and reconciled with the patient * Allergies: N .K.D.A. Objective: * Vitals: * Examination: P sychiatry: [...] type - F90.2 Plan: * Treatment: 2. O thers Notes: Stop abilify. Start lamictal- take 25mg daily for two weeks then 50mg daily for mood, irritability. Patient educated on all medications including potential benefits, side effects, risks. Educated on proper dosing schedule and importance of compliance. * Procedure Codes: G 2211 VISIT COMPLEXITY INHERENT TO ONGOING CARE RELATED TO A PATIENT'S SINGLE, SERIOUS CONDITION OR A COMPLEX CONDITION * Follow Up: 4 Weeks (Reason: med follow up) * Billing Information: * Visit Code: [id number] OFFICE OUTPATIENT VISIT 25 MINUTES DETAILED HISTORY AND EXAM/MODERATE MEDICAL DECISION MAKING. * Procedure Codes: G2211 VISIT COMPLEXITY INHERENT TO ONGOING CARE RELATED TO A PATIENT'S SINGLE, SERIOUS CONDITION OR A COMPLEX CONDITION. * R UP Sign off status: Completed true * Provider: ASHELY MANCILLA Date: 11/16/2023 Generated for Leodan torres/Jhon/Shabnamitting on: 0 12/10/2024 01:30 PM LAYER UP History and Physical Notes * HPI (History of Present Illness) Category Sub-Category Detail Notes Category Not es History of Presenting Problem Anxiety Rates anxiety 4-8/10 with 10 being most severe. Here for follow up. Fluoxetine increased last apt. She has been forgetting to take the Abilify at bedtime, rarely taking it since it is in the evening. States depression is not doing so hot . 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 Anxiey is awful . She gets anxious going out in public, especially with herself. Denies panic attacks. Continues to feel irritable. Sleep is good, getting about 9 hours nightly. Appetite is good. Depression Rates depression 5/1 0 with 10 being most severe. Substance abuse Alcohol use about mo nthly Suicidal ideation Denies Psychosis no hx of psychosis Mood lability no hx of pal ADHD forgetful in daily a ctivities, easily distracted by extraneous stimuli, does not follow through on instructions and fails to finish work Depression screening PHQ-9 Little inte rest or pleasure in doing things: Several days Feeling down, depressed, or hopeless: No t at all Trouble falling or staying asleep, or sl eeping too much: Several days Feeling tired or having little energy: M ore than half the days Poor appetite or overeating: Not at all Feeling bad about yourself o r that you are a failure, or have let yourself or your family down: Not at all Trouble concentrating on thi ngs, such as [...] yourself in some way: Not at all Depression Screening MURPHY-7 (2018 Edition) Feelin g nervous, anxious, or on edge: More than half the days Not being able to stop or control worryi ng: Several days Worrying too much about different things : Several days Trouble relaxing: Several days Being so restless that it is hard to sit still: More than half the days Becoming easily annoyed or irritable: [place] every day Feeling afraid as if something awful derian ht happen: Several days [place]-Suicide Severity Rating Scale Suicide Risk (CSRS-screener) in [...]
--- OUTSIDE RECORDS SUMMARY | 2024-12-10 13:31 | XMS_ITS | Clinical Summary ---
Author Organization [facility] Address [address] [place] [address] Care Team Providers Care Seating Upholsterer Name Role Phone Darrian Luna MD Primary Care Provider [phone] Source Comments [facility],non-owned Affiliates and Associated Physician Practices is amultiple site organization consisting of ambulatory clinics and hospital sitesin [place], [place], [place] and [place]. This disclosure is being madepursuant to the Care Everywhere program and may not contain all information available regarding this patient. Last updated 18.[facility] Allergies Active Allergy Reactions Criticality Noted Date Comments Lactose GI Discomfort 10/02/2017 Medications * Be aware that medications may not be up to date on this document. Alwaysverify current medications with the patient. Medication Sig Dispensed Refills Start Date End Date Status drospirenone-ethin yl estradiol (MORIAH) 3-0.02 MG tablet 01/12/2019 Active ibuprofen (MOTRIN) 600 MG tablet Take 600 mg by mouth every 6 hours as needed for Pain Active acetaminophen (TYLENOL) 500 MG tablet Take 1,000 mg by mouth every 4 hours as needed for Fever or Pain Maximum allowable Acetaminophen amount = 4 Grams (4000 mg) / 24 hours. Active buPROPion XL 24hr (WELLBUTRIN-XL) 300 MG tablet Take 300 mg by mouth every morning Active lamoTRIgine (LAMICTAL) 100 MG tablet Take 100 mg by mouth 2 times daily 05/31/2020 Active lamoTRIgine (LAMICTAL) 25 MG tablet Take 25 mg by mouth 2 times daily Pt taking 125 mg BID and 25 mg in afternoon 05/31/2020 Active lactobacillus extra strength (FLORAJEN) capsule Take 1 capsule by mouth once daily Active Riboflavin (B-2-400 PO) Active rizatriptan, disintegrating, (MAXALT-STARBUCKS CLERK) 5 MG tabletIndications: Chronic daily headache 1 tab PO prn severe migraine; may repeat in 2-4 hours if no relief. No more than 2 tabs in 24 H. 8 tablet 2 05/28/2021 Active Additional Information Patient not taking.Reported on 12/14/2021 nitrofurantoin macrocrystal (MACRODANTIN) 100 MG capsule Take 1 (one) capsule by mouth at bedtime 30 capsule 10/24/2021 Active Ferrous Sulfate (IRON PO) Active ARIPiprazole (ABILIFY) 10 MG tablet Take 10 mg by mouth once daily 10/02/2021 Active Cholecalciferol (D3 PO) Active multivitamin daily tablet Take 1 tablet by mouth daily with food Active ondansetron (ZOFRAN) 8 MG tablet Take 1 (one) tablet by mouth every 8 hours as needed for Nausea/Vomiting 6 tablet 01/26/2022 Active SUMAtriptan (Imitrex) 25 MG tablet Take 1 (one) tablet by mouth as needed for Migraine (May repeat in 2-4 hours if no relief. No more than 2 tablets in 24 HOURS) Maximum daily dose: 200 mg/24 hours 8 tablet 2 10/10/2022 Active Active Problems Problem Noted Date Diagnosed Date Pelviectasis of kidney 10/30/2021 Assessment & Plan (11/07/2021 8:13 AM IT CORPORATE RECRUITER): A&P - Left Pelviectasis of kidney Maria Luisa has mild left pelviectasis to left kidney noted on previous ultrasound. VCUG was normal. Kidney stones to right kidney are not visible on VCUG and likely smaller than 0.4 mm. Maria Luisa is not symptomatic for kidney stones at this time. Grossly normal physical exam. Random Calcium/Creatinine ratio elevated to .25. Hypercalcuria is likely contributing to kidney stones. Referral to nephrology for metabolic workup for stones and hypercalcuria. 11/06/2021 Discussed plan of care with Dr. Castaneda. He recommends yearly follow up with or nephrology with a renal and bladder ultrasound to monitor left pelviectasis. Additional diagnostic imaging is not needed for kidney stones as long as Maria Luisa remains asymptomatic. Referral to nephrology for kidney stones. Timed voiding, Urinary recommendations including: voiding posture and relaxation techniques, bladder dietary and fluid intake recommendations, hygiene recommendations and follow up with nephrology Assessment & Plan (10/30/2021 6:03 AM IT CORPORATE RECRUITER): A&P - Mild Left Pelviectasis Maria Luisa has a history of urinary tract infections, dysuria, and left hydronephrosis. She voids 5 times a day and has a soft bowel movement daily. Grossly normal physical exam. PVR is slightly elevated 40 mL. Renal and bladder ultrasound consistent with mild left pelviectasis and proximal ureteral prominence and non obstructing right nephrolithiasis. Concerned for possible right VUR. Discussed findings with Dr. Castaneda. He recommends VCUG for left pelviectasis to rule out VUR. If VCUG is negative will obtain CT scan with contrast to assess for right nephrolithiasis. Will start Maria Luisa on Nitrofurantoin PA after negative urine culture. Timed voiding, Urinary recommendations including: voiding posture and relaxation techniques, bladder dietary and fluid intake recommendations, hygiene recommendations, Pharmaceutical management: Start prophylactic antibiotic after urine cutlure results and schedule follow up appointment with VCUG Right nephrolithiasis 10/30/2021 Assessment & Plan (12/18/2021 5:00 PM IT CORPORATE RECRUITER): Maria Luisa is a 16yo F who presents for evaluation of right nephrolithiasis and hypercalciuria. She has never been symptomatic from a kidney stone and has been doing well from a UTI perspective after increasing urinary frequency to every 3 hours. She does take topomax, which can cause increased urinary calcium excretion. However, dad also has a history of kidney stones and therefore we will evaluate for possible other causes of stones, including hyperoxaluria and hyperoxaluria with a 24-hour urine collection. We also discussed increasing fluid intake to about 86oz/day goal to improve hydration and reduce potential stone formation. Finally, she should follow up with a REYNA to monitor for stone formation/increase in size as well as to monitor her left pelviectasis. -REYNA in about 1 year -24-hour urine collection - calcium, oxalate, citric acid, creatinine -RFP and Mg blood today -Fluid intake goal: 86oz/day -RTC in 6mo Assessment & Plan (11/07/2021 8:21 AM IT CORPORATE RECRUITER): A&P - right nephrolithiasis Please see assessment and plan under left pelviectasis Assessment & Plan (10/30/2021 6:04 AM IT CORPORATE RECRUITER): A&P - Right Nephrolithiasis Please see assessment and plan under pelviectasis Anxiety state 03/11/2019 Dizziness and giddiness 03/11/2019 Chronic daily headache 03/11/2019 Assessment & Plan (01/14/2022 11:41 AM CDT): Chronic daily headaches (mixed pattern of migraines and tension type) unchanged from prior. Has lifestyle factors including psychosocial/school related stressors, mood issues (seeing psychiatrist, counselor and is on other med's, including lamotrigine which may increase headaches), sedentary lifestyle etc. She has also had some renal stones and seen by nephrology () for the same. 1. Keep headache diary 2. Maintain active lifestyle - limit screen time. 3. Eat healthy diet, and do not skip meals 4. Drink plenty of water, and avoid caffeine regularly. 5. Sleep: 1. Maintain good sleep routine. 2. Avoid distractions at bedtime such as TV, computer. 3. Get at least 8-10 hours of sleep nightly 4. Avoid daytime naps (even if sleeping off a bad headache, try not to sleep for prolonged periods. 5. If daytime lethargy persists despite readjusting Abilify Wellbutrin, and if she continues to have headaches that start in the mornings after awakening, she may need a sleep study to look at the quality of her sleep. 6. Do not use pain medication (such as Tylenol, Ibuprofen) more than 2-3 times/week in order to avoid medication overuse headaches 7. In view of the renal stones, will wean off Topamax - reduce to 50 mg at bedtime x 2 weeks, then stop Topamax 8. Continue follow up with psychiatrist as scheduled 9. Discuss Cognitive Behavior Therapy to address chronic pain.headaches with counselor 10. Other options can be discussed after she turns 17 y and if headaches are still as persistent after school is done in a couple of months. Can also consider transition to an adult neurologist if referred. 11. Call in 4-6 weeks with update regarding headaches, sooner for concerns Assessment & Plan (05/28/2021 3:11 PM CDT): Chronic headaches have improved, continues to have multiple lifestyle issues including diet, hydration, sleep, stressors/mood issues etc. Is also on multiple other med's. 1. Keep headache diary 2. Maintain active lifestyle. Limit screen time. Warm compress and gentle neck stretches to address neck muscle tension. 3. Eat healthy diet, and do not skip meals 4. Drink plenty of water, and avoid caffeine regularly. Letter for work to allow for hydration and breaks. 5. Sleep: 1. Maintain good sleep routine. 2. Avoid distractions at bedtime such as TV, computer. 3. Get at least 8-10 hours of sleep nightly 4. Limit daytime naps. 6. Do not use pain medication (such as Tylenol, Ibuprofen) more than 2-3 times/week in order to avoid medication overuse headaches 7. Can use Maxalt as prescribed for severe migraines 8. Reduce Topamax from 125 to 100 mg at bedtime (stop taking 25 mg in the mornings). 9. Call after 3-4 weeks to discuss further reduction in the Topamax. 10. Follow up with psychiatrist to address mood issues. 11. Continue to supervise and closely monitor medications and access (due to recent attempt at ingestion). 12. Follow up with Neurology in about 6 months. 13. Call in 3-4 weeks with update regarding headaches, sooner for concerns Assessment & Plan (11/08/2020 10:39 AM IT CORPORATE RECRUITER): Chronic daily headaches (mostly tension type) have improved (likely due to reduction in some school related stressors due to online schooling which she prefers) and lifestyle modifications. No changes to be made to medication regimen at this time. Can consider lowering Topamax dose at end of school during summer. 1. Keep headache diary 2. Maintain active lifestyle - limit screen time and encourage regular physical activity. 3. Consider warm compress and gentle neck stretch for neck muscle tension. 4. Eat healthy diet, and do not skip meals 5. Drink plenty of water, and avoid caffeine regularly. Maintain adequate hydration and reduce caffeine intake. 6. Sleep: 1. Maintain good sleep routine. 2. Avoid distractions at bedtime such as TV, computer. 3. Get at least 8-10 hours of sleep nightly 7. Do not use pain medication (such as Tylenol, Ibuprofen) more than 2-3 times/week in order to avoid medication overuse headaches 8. Use OTC analgesics (if at work) or Imitrex as needed only for severe headaches. Can try comfort measures and avoid analgesics for milder headaches. 9. Continue with Topamax 100 mg at bedtime. Take regularly and as prescribed. 10. Continue Riboflavin 400 mg daily supplementation. 11. Follow up with psychiatrist as scheduled - can discuss further med changes with her. No specific medication recommendations/contraindications for mood from a headache standpoint. 12. Call for any interim worsening /changes/updates to headaches or other neurological concerns. Can call after school lets out for summer to discuss lowering Topamax dose. 13. Follow up in about 6 months. Assessment & Plan (04/21/2020 3:57 PM CDT): Chronic daily headaches - mostly tension type and some migraines - with lifestyle issues including sleep, sedentary lifestyle, possible neck tension, comorbid mood fluctuations and concomitant medications such as Lamictal. 1. Keep headache diary 2. Maintain active lifestyle. Limit screen time. 3. Improve physical activity - can consider PT to address neck tension and improve endurance as next step later in the summertime. 4. Eat healthy diet, and do not skip meals 5. Drink plenty of water, and avoid caffeine regularly. 6. Avoid daytime naps. 7. Sleep: 1. Maintain good sleep routine. 2. Avoid distractions at bedtime such as TV, computer. 3. Get at least 8-10 hours of sleep nightly 8. Do not use pain medication (such as Tylenol, Ibuprofen) more than 2-3 times/week in order to avoid medication overuse headaches 9. Increase Topamax to 75 mg at bedtime.Take regularly and as prescribed. 10. Can take Imitrex as prescribed for intense migraine headache. 11. May need to add another agent such as Riboflavin if headaches do not improve despite the above. \Continue follow up with Psychiatrist. 12. Call in about 4 weeks with an update. Call sooner for concerns. 13. Follow up in 6 months in Neurology clinic. Assessment & Plan (03/11/2019 12:30 PM CDT): Chronic daily headaches (mostly tension type) with several lifestyle issues such as skipping meals, hydration, sedentary lifestyle/increased screen time ad neck muscle tension, poor sleep, medication overuse, mood/psychosocial or school related stressors. 1. Keep headache diary 2. Maintain active lifestyle. Limit screen time, encourage regular physical activity 3. Refer to PT to address neck muscle tension, deconditioning and screen tolerability etc. 4. Reduce chewing gun constantly. 5. Eat healthy diet, and do not skip meals - eat regularly. 6. Drink plenty of water, and avoid caffeine regularly. 7. Sleep: 1. Maintain good sleep routine. 2. Avoid distractions at bedtime such as TV, computer - none by the bedside. Turn off all electronics at least 30 minutes prior to bedtime. 3. Get at least 8-10 hours of sleep nightly 4. Trial of melatonin 3-5 mg at bedtime 5. Note for any worsening sleep related restlessness - can consider checking iron levels if sleep related restlessness persists. 8. Do not use pain medication (such as Tylenol, Ibuprofen) more than 2-3 times/week in order to avoid medication overuse headaches 9. Treat milder headaches with comfort measures only. 10. For moderate-severe headache, can try Imitrex 25 mg tabs - 1 tab as needed for headaches. May repeat in 2-4 hours if no relief. No more than 2 tabs in 24 hours. 11. Continue Topamax 50 mg tabs - 1 tab at bedtime. Take regularly and as prescribed. 12. Can consider supplementation with magnesium and riboflavin as the next steps 13. Continue seeing the psychiatrist as scheduled 14. Continue with seeing the therapist to address mood - can consider Cognitive Behavior Therapy to address mood and chronic headache/pain. 15. Reefer to [email or web address] 16. 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 inflammation; anticipatory guidance + keratolytics Mom similarly affected Otorrhea 08/17/2010 Overview (08/03/2015): Perforation of left tympanic membrane 08/10/2010 Hearing loss, conductive 08/10/2010 Immunizations Name Administration Dates Next Due DTAP HIB IPV 03/03/2009 DTaP VACCINE IM (6wk-6yrs) 06/21/2005,,2004,05/18 HEP B VACCINE, PED/ADOL 03/11/2005,2004, Human Papilloma Virus Nineva lent Vaccine 12/06/2015,08/09/2015 Human Papilloma Virus Hawa valent Vaccine 04/22/2016 SAMIR VACCINE QUAD LAIV4 PF NASAL 08/09/2015 MENINGOCOCCAL CONJUGATE (MCV4P) 10/31/2020,08/09 PNEUMOCOCCAL PCV7 CONJ, PEDS 03/11/2005, 2004,2004,05/18 POLIO IPV 2004,2004,2004 TDAP (7yrs+) 08/09/2015 VARICELLA 03/03/2009,03/11/2005 Family History Medical History Relation Name Comments Diabetes - Type 2 Father Hyperlipidemia Father Hypertension Father Bipolar Disorder Maternal Aunt Depression Maternal Aunt Cancer - Prostate Maternal Grandfather Cancer - Skin, Melanoma Maternal Grandfather Cancer - Skin, Non Melanoma Maternal Grandfather Hypertension Maternal Grandfather Hypertension Maternal Grandmother Psoriasis Maternal Uncle Bipolar Disorder Mother Depression Mother Eczema Mother Cancer - Other Paternal Grandfather tongu e Hyperlipidemia Paternal Grandfather Hypertension Paternal Grandfather Anesthesia Reaction Neg Hx Asthma Neg Hx Bleeding Disorders Neg Hx Childhood Hearing Disorder Neg Hx Relation Name Status Comments Father Alive Maternal Aunt Maternal Grandfather Alive Maternal Grandmother Alive Maternal Uncle Mother Alive Paternal Grandfather Alive Paternal Grandmother Social History Tobacco Use Types Packs/Day Years Used Date Smoking Tobacco: Never Smokeless Tobacco: Never Alcohol Use Standard Drinks/Week Comments No 0 (1 standard drink = 0.6 oz pur e alcohol) Sex and Gender Information Value Date Recorded Sex Assigned at Not on file Gender Identity Not on file Sexual Orientation Not on file Last Filed Vital Signs Vital Sign Reading Time Taken Comments Blood Pressure 124/77 02/11/2022 1:29 PM CDT Pulse 98 02/11/2022 1:29 PM CDT Temperature 36.9 C (98.4 F) 02/11/2022 1:29 PM CDT Respiratory Rate 16 02/11/2022 1:29 PM CDT Oxygen Saturation 100% 02/11/2022 1:29 PM CDT Inhaled Oxygen Concentration 100% 10/02/2017 4 :25 PM IT CORPORATE RECRUITER Weight 71.6 kg (157 lb 12.8 oz) 02/11/2022 1:29 PM CDT Height 172.7 cm (5' 8 ) 02/11/2022 1:29 PM CDT Body Mass Index 23.99 02/11/2022 1:29 PM CDT Plan of Treatment Health Maintenance Due Date Last Done Comments MENINGOCOCCAL (Group B) VACC INE (1 of 2 - Standard) 2020 HEPATITIS C SCREENING 03/04/2022 CHLAMYDIA/GONORRHEA SCREENING 01/24/2023 01/24/2022, 04/19/2021 COVID-19 VACCINE (1 - 2023-2 5 season) 2024 INFLUENZA VACCINE (#1) 2024 08/09/2015 DEPRESSION SCREENING 11/03/2024 DTAP/TDAP/TD VACCINES (7 - T d or Tdap) 08/09/2025 08/09/2015, 03/03/2009, 06/21/2005, Additional history exists ZOSTER VACCINE (1 of 2) 2054 HEPATITIS B VACCINE Completed 03/11/2005, 2004, 2004 PNEUMOCOCCAL VACCINE Completed 03/11/2005, 2004, 2004, Additional history exists HIB VACCINE Completed 03/03/2009 HPV VACCINE Completed 04/22/2016, 01/2016, 08/09/2015 MENINGOCOCCAL VACCINE Completed 10/31/2020, 015 HIV SCREENING Completed 01/24/2022 Procedures Procedure Name Priority Date/Time Associated Diagnosis Comments HIV-1 HIV-2 ANTIBODY + HIV P24 AG PANEL STAT 01/24/2022 7:57 AM CDT CHLAMYDIA + GC AMPLIFIED PROBE STAT 01/24/2022 7:42 AM CDT from Last 3 Months or Most Recently Relevant to Health Maintenance Results * HIV-1 HIV-2 ANTIBODY + HIV P24 AG PANEL (01/24/2022 7:57 AM CDT) Pathologist [facility] HIV Antigen/Antibod y 1 & 2 Non-reacti ve Non-react arie 01/24/2022 8:47 AM CDT [facility] Comment:No Laboratory eviden ce of HIV infection. Blood BLOOD SPECIMEN / Unknown Venipuncture / Unknown 01/24/2022 7:57 AM CDT 01/24/2022 8:02 AM CDT Elda Stuart MD LAB - CHEMISTRY ORDERABLES Performing Organization Address [facility]/State/[facility] Co de Phone Number [facility] [address] [place] [phone], [facility] [phone] * CHLAMYDIA + GC AMPLIFIED PROBE (STL) (01/24/2022 7:42 AM CDT) Chlamydia Amplified Probe Negative Negative 01/24/2022 11:17 PM CDT [facility] GC Amplified Probe Negative Negative 01/24/2022 11:17 PM CDT [facility] Microbiology URINE / Unknown Collection / Unknown 01/24/2022 7:42 AM CDT 01/24/2022 7:55 AM CDT Narrative [facility] - 01/24/2022 11:17 PM CDT Results based on detection/no detection of ribosomal RNA by amplified method. Elda Stuart MD LAB - MICROBIOL OGY ORDERABLES [facility] [address] [place] [address], [facility] [phone] from Last 3 Months or Most Recently Relevant to Health Maintenance Care Teams Seating Upholsterer Relationship Specialty Start Date End Date Darrian Luna MD [address] [place], [place] [address] PCP - General Pediatrics 02/04/19
--- OUTSIDE RECORDS SUMMARY | 2024-12-10 13:31 | XMS_ITS | Referral Summary ---
Author Organization [facility] Address [address] [place] [address] Care Team Providers Care Shroud Line Tier Name Role Phone Darrian Luna MD Primary Care Provider [phone] Source Comments [facility],non-owned Affiliates and Associated Physician Practices is amultiple site organization consisting of ambulatory clinics and hospital sitesin [place], [place], [place] and [place]. This disclosure is being madepursuant to the Care Everywhere program and may not contain all information available regarding this patient. Last updated 18.[facility] Allergies Active Allergy Reactions Criticality Noted Date [...] Active Riboflavin (B-2-400 PO) Active rizatriptan, disintegrating, (MAXALT-HVAC ESTIMATOR) 5 MG tabletIndications: Chronic daily headache 1 [...] 10/30/2021 Assessment & Plan (11/07/2021 8:13 AM EMERGENCY VEHICLE DISPATCHER): A&P - Left Pelviectasis of kidney Maria [...] nephrology Assessment & Plan (10/30/2021 6:03 AM EMERGENCY VEHICLE DISPATCHER): A&P - Mild Left Pelviectasis Maria Luisa [...] 10/30/2021 Assessment & Plan (12/18/2021 5:00 PM EMERGENCY VEHICLE DISPATCHER): Maria Luisa is a 16yo F who [...] 6mo Assessment & Plan (11/07/2021 8:21 AM EMERGENCY VEHICLE DISPATCHER): A&P - right nephrolithiasis Please see assessment and plan under left pelviectasis Assessment & Plan (10/30/2021 6:04 AM EMERGENCY VEHICLE DISPATCHER): A&P - Right Nephrolithiasis Please see assessment [...] concerns Assessment & Plan (11/08/2020 10:39 AM EMERGENCY VEHICLE DISPATCHER): Chronic daily headaches (mostly tension type) have [...] access) Keratosis pilaris 10/14/2018 Overview (10/14/2018): 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 [...] IPV 2004,2004,2004 TDAP (7yrs+) 08/09/2015 VARICELLA 03/03/2009,03/11/2005 Social History Tobacco Use Types Packs/Day Years [...] Oxygen Concentration 100% 10/02/2017 4 :25 PM EMERGENCY VEHICLE DISPATCHER Weight 71.6 kg (157 lb 12.8 oz) 02/11/2022 1:29 PM CDT Height 172.7 cm (5' 8 ) 02/11/2022 1:29 PM CDT Body Mass Index 23.99 02/11/2022 1:29 PM CDT Functional Status Functional Status Response Date of Assess ment Is person deaf or have serious hearing difficult y? No 10/02/2017 Is person blind or have serious difficulty seein g? No 10/02/2017 Does person have serious dif ficulty walking/climbing stairs? No 10/02/2017 Does person have difficulty dressing/bathing? No 10/02/2017 Does person have difficulty doing errands alone? No 10/02/2017 Cognitive Status Response Date of Assessm ent Does person have difficulty concentrating/remembering/making decisions? No 10/02/2017 Plan of Treatment Not on file Procedures Procedure Name Priority Date/Time Associated Diagnosis Comments HIV-1 HIV-2 ANTIBODY + HIV P24 AG PANEL STAT 01/24/2022 7:57 AM CDT CHLAMYDIA + GC AMPLIFIED PROBE STAT 01/24/2022 7:42 AM CDT from Last 3 Months or Most Recently Relevant to Health Maintenance Results * HIV-1 HIV-2 ANTIBODY + HIV P24 AG PANEL (01/24/2022 7:57 AM CDT) HIV Antigen/Antibod y 1 & 2 Non-reacti ve Non-react arie 01/24/2022 8:47 AM CDT [facility] Comment:No Laboratory eviden ce of HIV infection. Blood BLOOD SPECIMEN / Unknown Venipuncture / Unknown 01/24/2022 7:57 AM CDT 01/24/2022 8:02 AM CDT Elda Stuart MD LAB - CHEMISTRY ORDERABLES [facility] [address] [place] [address], [facility] [phone] * CHLAMYDIA + GC AMPLIFIED PROBE (STL) (01/24/2022 7:42 AM CDT) [facility] Chlamydia Amplified Probe Negative Negative 01/24/2022 11:17 PM CDT [facility] GC Amplified Probe Negative Negative 01/24/2022 11:17 PM CDT [facility] Microbiology URINE / Unknown Collection / Unknown 01/24/2022 7:42 AM CDT 01/24/2022 7:55 AM CDT Narrative [facility] - 01/24/2022 11:17 PM CDT Results based on detection/no detection of ribosomal RNA by amplified method. Elda Stuart MD LAB - MICROBIOL OGY ORDERABLES [facility] [address] [place] [address], [facility] [phone] from Last 3 Months or Most Recently Relevant to Health Maintenance Care Teams Shroud Line Tier Relationship Specialty Start Date End Date Darrian Luna MD [address] [place], [place] [phone] PCP - General Pediatrics 02/04/19
--- OUTSIDE RECORDS SUMMARY | 2024-12-10 13:31 | XMS_ITS | Patient Health Summary ---
Author Organization [facility] Address [address] [place] [address] Care Team Providers Care General Lot Attendant Name Role Phone Darrian Luna MD Primary Care Provider [phone] Note from [facility],non-owned Affiliates and Associated Physician Practices is amultiple site organization consisting of ambulatory clinics and hospital sitesin [place], [place], [place] and [place]. This disclosure is being madepursuant to the Care Everywhere program and may not contain all information available regarding this patient. Last updated 18.[facility] Allergies * Lactose(GI Discomfort) Medications * Be aware that medications may not be up to date on this document. Alwaysverify current medications with the patient. * drospirenone-ethinyl estradiol (MORIAH) 3-0.02 MG tablet(Started 01/12/2019) * ibuprofen (MOTRIN) 600 MG tablet Take 600 mg by mouth every 6 hours as needed for Pain * acetaminophen (TYLENOL) 500 MG tablet Take 1,000 mg by mouth every 4 hours as needed for Fever or Pain Maximum allowable Acetaminophen amount = 4 Grams (4000 mg) / 24 hours. * buPROPion XL 24hr (WELLBUTRIN-XL) 300 MG tablet Take 300 mg by mouth every morning * lamoTRIgine (LAMICTAL) 100 MG tablet(Started 05/31/2020) Take 100 mg by mouth 2 times daily * lamoTRIgine (LAMICTAL) 25 MG tablet(Started 05/31/2020) Take 25 mg by mouth 2 times daily Pt taking 125 mg BID and 25 mg in afternoon * lactobacillus extra strength (FLORAJEN) capsule Take 1 capsule by mouth once daily * Riboflavin (B-2-400 PO) * rizatriptan, disintegrating, (MAXALT-STEEL TESTER) 5 MG tablet(Started 05/28/2021) 1 tab PO prn severe migraine; may repeat in 2-4 hours if no relief. No more than 2 tabs in 24 H. 2 refills by 05/28/2022 * nitrofurantoin macrocrystal (MACRODANTIN) 100 MG capsule(Started 10/24/2021) Take 1 (one) capsule by mouth at bedtime * Ferrous Sulfate (IRON PO) * ARIPiprazole (ABILIFY) 10 MG tablet(Started 10/02/2021) Take 10 mg by mouth once daily * Cholecalciferol (D3 PO) * multivitamin daily tablet Take 1 tablet by mouth daily with food * ondansetron (ZOFRAN) 8 MG tablet(Started 01/26/2022) Take 1 (one) tablet by mouth every 8 hours as needed for Nausea/Vomiting * SUMAtriptan (Imitrex) 25 MG tablet(Started 10/10/2022) Take 1 (one) tablet by mouth as needed for Migraine (May repeat in 2-4 hours if no relief. 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 Keratosis pilaris 10/14/2018 Otorrhea 08/17/2010 Perforation of left tympanic membrane 08/10/2010 Hearing loss, conductive 08/10/2010 Immunizations * DTAP HIB IPV(Given 03/03/2009) * DTaP VACCINE IM (6wk-6yrs)(Given 06/21/2005, 2004, 2004, 2004) * HEP B VACCINE, PED/ADOL(Given 03/11/2005, 2004, 2004) * Human Papilloma Virus Ninevalent Vaccine(Given 12/06/2015, 08/09/2015) * Human Papilloma Virus Quadrivalent Vaccine(Given 04/22/2016) * SAMIR VACCINE QUAD LAIV4 PF NASAL(Given 08/09/2015) * MENINGOCOCCAL CONJUGATE (MCV4P)(Given 10/31/2020, 08/09/2015) * PNEUMOCOCCAL PCV7 CONJ, PEDS(Given 03/11/2005, 2004, 2004, 2004) * POLIO IPV(Given 2004, 2004, 2004) * TDAP (7yrs+)(Given 08/09/2015) * VARICELLA(Given 03/03/2009, 03/11/2005) Social History Tobacco Use Types Packs/Day Years [...] Oxygen Concentration 100% 10/02/2017 4 :25 PM MARKETING AREA MANAGER Weight 71.6 kg (157 lb 12.8 oz) 02/11/2022 1:29 PM CDT Height 172.7 cm (5' 8 ) 02/11/2022 1:29 PM CDT Body Mass Index 23.99 02/11/2022 1:29 PM CDT Procedures * URINE DRUG SCREEN IMMUNOASSAY(Performed 02/11/2022) Performed for Depression, unspecified depression type * US PELVIS W DOPPLER OVARIES(Performed 01/24/2022) Performed for Abdominal pain, LLQ * HCG URINE QUALITATIVE - POCT (IP) INTERFACED(Performed 01/24/2022) * SYPHILIS ANTIBODY CASCADING REFLEX(Performed 01/24/2022) * HIV-1 HIV-2 ANTIBODY + HIV P24 AG PANEL(Performed 01/24/2022) * TRICHOMONAS VAGINALIS AMPLIFIED PROBE(Performed 01/24/2022) * CHLAMYDIA + GC AMPLIFIED PROBE(Performed 01/24/2022) * URINALYSIS W/MICROSCOPIC REFLEX TO CULTURE(Performed 01/24/2022) * HCG URINE QUAL POCT NOTIFICATION(Performed 01/24/2022) * MAGNESIUM BLOOD(Performed 01/01/2022) Performed for Hypercalciuria, Right nephrolithiasis * RENAL FUNCTION PANEL(Performed 01/01/2022) Performed for Hypercalciuria, Right nephrolithiasis * URINALYSIS - POCT (IP) BEAKER INTERFACE(Performed 12/18/2021) * URINALYSIS W/MICROSCOPIC NO CULTURE(Performed 10/31/2021) Performed for History of UTI * CULTURE URINE(Performed 10/31/2021) Performed for History of UTI * FL CYSTOGRAM VOIDING(Performed 10/31/2021) Performed for History of UTI * URINALYSIS W/MICROSCOPIC NO CULTURE(Performed 10/24/2021) Performed for History of UTI * CALCIUM/CREAT RATIO URINE RANDOM PANEL(Performed 10/24/2021) Performed for History of UTI * CULTURE URINE(Performed 10/24/2021) Performed for History of UTI * US KIDNEYS W BLADDER(Performed 10/24/2021) Performed for Dysuria * HCG URINE QUALITATIVE - POCT (IP) INTERFACED(Performed 04/19/2021) * URINALYSIS W/MICROSCOPIC NO CULTURE(Performed 04/19/2021) * CHLAMYDIA + GC AMPLIFIED PROBE(Performed 04/19/2021) * TRICHOMONAS RAPID TEST(Performed 04/19/2021) * CULTURE URINE(Performed 04/19/2021) * HCG URINE QUAL POCT NOTIFICATION(Performed 04/19/2021) * XR KNEE RIGHT 3VW(Performed 07/07/2020) Performed for Acute pain of right knee * URINALYSIS - POCT (IP) NOTIFICATION(Performed 11/18/2019) Performed for Abnormal weight loss * URINALYSIS - POCT (IP) BEAKER INTERFACE(Performed 11/18/2019) * LIPID PROFILE(Performed 10/28/2019) * TSH(Performed 10/28/2019) * DIFFERENTIAL MANUAL(Performed 10/28/2019) * LIPASE BLOOD(Performed 10/28/2019) * AMYLASE BLOOD(Performed 10/28/2019) * PHOSPHORUS BLOOD(Performed 10/28/2019) * MAGNESIUM BLOOD(Performed 10/28/2019) * COMPREHENSIVE METABOLIC PANEL(Performed 10/28/2019) * CBC W AUTO DIFFERENTIAL(Performed 10/28/2019) * TISSUE TRANSGLUTAMINASE AB IGA(Performed 02/19/2019) Performed for Pain of upper abdomen * ERYTHROCYTE SEDIMENTATION RATE(Performed 02/19/2019) Performed for Pain of upper abdomen * LIPASE BLOOD(Performed 02/19/2019) Performed for Pain of upper abdomen * IGA BLOOD(Performed 02/19/2019) Performed for Pain of upper abdomen * COMPREHENSIVE METABOLIC PANEL(Performed 02/19/2019) Performed for Pain of upper abdomen * CBC W AUTO DIFFERENTIAL(Performed 02/19/2019) Performed for Pain of upper abdomen * CT HEAD WO CONTRAST(Performed 02/15/2019) Performed for Intractable migraine without aura and with status migrainosus * AUDIOLOGY/TYMPANOMETRY ORDER(Performed 06/04/2018) * AUDIOLOGY/TYMPANOMETRY ORDER(Performed 01/20/2018) * TYMPANOPLASTY(Performed 10/02/2017) Performed for Perforation of left tympanic membrane, Otorrhea of left ear, Conductive hearing loss of left ear, unspecified hearing status on contralateral side * HCG URINE QUALITATIVE - POCT (IP) BEAKER(Performed 10/02/2017) * AUDIOLOGY/TYMPANOMETRY ORDER(Performed 01/28/2015) * CULTURE EAR(Performed 09/11/2010) Performed for Otorrhea * CULTURE FUNGUS OTHER(Performed 09/11/2010) Performed for Otorrhea * CULTURE EAR(Performed 08/20/2010) * CULTURE FUNGUS OTHER(Performed 08/20/2010) Performed for Unspecified otorrhea Results * URINE DRUG SCREEN IMMUNOASSAY (02/11/2022 11:25 AM CDT) Pathologist [facility] Amphetamines Screen Urine Not detected Not detected 02/11/2022 11:59 AM CDT [facility] Barbiturates Screen Urine Not detected Not detected 02/11/2022 11:59 AM CDT [facility] Benzodiazepines Screen Urine Not detected Not detected 02/11/2022 11:59 AM CDT [facility] Cannabinoids Screen Urine Not detected Not detected 02/11/2022 11:59 AM CDT [facility] Cocaine Screen Urine Not detected Not detected 02/11/2022 11:59 AM CDT [facility] Fentanyl Urine Not detected Not detected 02/11/2022 11:59 AM CDT [facility] Methadone Screen Urine Not detected Not detected 02/11/2022 11:59 AM CDT [facility] Opiate Screen Urine Not detected Not detected 02/11/2022 11:59 AM CDT [facility] Phencyclidine Screen Urine Not detected Not detected 02/11/2022 11:59 AM CDT [facility] Urine URINE / Unknown Collection / Unknown 02/11/2022 11:25 AM CDT 02/11/2022 11:41 AM CDT Narrative [facility] - 02/11/2022 11:59 AM CDT This drug screen is designed for MEDICAL purposes only. It is not to be used for legal purposes, including but not limited to worker's comp, police investigations, occupational issues, child custody, etc. Any positive result is only presumptive and must be confirmed with a separate confirmatory test ordered by the physician. Drug Screening Test Cutoff Values: AMPHETAMINES 1000 ng/mL BARBITURATES 200 ng/mL BENZODIAZEPINES 200 ng/mL CANNABINOIDS(THC) 50 ng/mL COCAINE 300 ng/mL FENTANYL 1 ng/mL METHADONE 300 ng/mL OPIATES 300 ng/mL PHENCYCLIDINE(PCP) 25 ng/mL Ellie Cuevas APRN-CONCERT PROMOTER LAB - URINE C HEMISTRY ORDERABLES Performing Organization Address City/State/[facility] Co de Phone Number [facility] [address] [place] [address] * US PELVIS W DOPPLER OVARIES (01/24/2022 9:21 AM CDT) Anatomical Region Laterality Modality Pelvis Ultrasound 01/24/2022 9:23 AM CDT Impressions 01/24/2022 9:24 AM CDT IMPRESSION: 1.Normal pelvis ultrasound. 2.Normal spectral Doppler interrogation of the ovaries. > Interpreting Provider: Caleb Zayas DO on 01/24/2022 9:24 AM Narrative 01/24/2022 9:24 AM CDT PROCEDURE: US PELVIS W DOPPLER OVARIES, DATE/TIME OF EXAM: 01/24/2022 9:22 AM, LOCATION [facility] INDICATION: R10.32: Left lower quadrant pain ADDITIONAL CLINICAL INFORMATION: Ordering Provider Reason For Exam: Technologist Note: Additional: COMPARISON: None. TECHNIQUE: Transabdominal ultrasound of the pelvis with complete color and spectral Doppler evaluation of the ovaries. FINDINGS: Uterus: 6.9 x 2.9 x 3.6 cm Endometrium: 0.4 cm The uterus has normal appearance for patient age. The myometrium is homogenous and normal. There is no pathological endometrial thickening or abnormal fluid. Right Ovary: 4.0 x 1.7 x 3.3 cm. Volume 11.5 mL The right ovary is normal in appearance. Left Ovary: 3.5 x 1.7 x 2.4 cm. Volume 7.5 mL The left ovary is normal in appearance. Doppler: Spectral Doppler waveforms demonstrate arterial and venous flow to both ovaries.. Normal color flow is demonstrated to both ovaries. Other: There is no abnormal free fluid or adnexal mass. Procedure Note Caleb Zayas, DO - 01/24/2022 PROCEDURE: US PELVIS W DOPPLER OVARIES, DATE/TIME OF EXAM: 29:22 AM, LOCATION [facility] INDICATION: R10.32: Left lower quadrant pain ADDITIONAL CLINICAL INFORMATION: Ordering Provider Reason For Exam: Technologist Note: Additional: COMPARISON: None. TECHNIQUE: Transabdominal ultrasound of the pelvis with complete colorand spectral Doppler evaluation of the ovaries. FINDINGS: Uterus: 6.9 x 2.9 x 3.6 cm Endometrium: 0.4 cm The uterus has normal appearance for patient age. The myometrium is homogenous and normal. There is no pathological endometrial thickeningor abnormal fluid. Right Ovary: 4.0 x 1.7 x 3.3 cm. Volume 11.5 mL The right ovary is normal in appearance. Left Ovary: 3.5 x 1.7 x 2.4 cm. Volume 7.5 mL The left ovary is normal in appearance. Doppler: Spectral Doppler waveforms demonstrate arterial and venous flowto both ovaries.. Normal color flow is demonstrated to both ovaries. Other: There is no abnormal free fluid or adnexal mass. IMPRESSION: 1.Normal pelvis ultrasound. 2.Normal spectral Doppler interrogation of the ovaries. > Interpreting Provider: Caleb Zayas DO on 01/24/2022 9:24 AM Elda Stuart MD US ORDERABLES * HCG URINE QUALITATIVE - POCT (IP) INTERFACED (01/24/2022 8:50 AM CDT) Only the most recent of2 resultswithin the time period is included. HCG Qual Urine Negative Negative 01/24/2022 9:01 AM CDT [facility] Urine URINE / Unknown 01/24/2022 8 :50 AM CDT 01/24/2022 9:01 AM CDT Elda Stuart MD LAB - POINT OF CARE ORDERABLES [facility] [place] [address] * SYPHILIS ANTIBODY CASCADING REFLEX (01/24/2022 7:57 AM CDT) Treponema pallidum Antibody Non-react arie Non-react arie 01/24/2022 8:47 AM CDT [facility] Comment: No Laboratory evidence of syphilis infection. Note: Circulating antibodies may be low or undetectable in early infection. If recent exposure is suspected, re-draw sample in 2-4 weeks and repeat testing. Blood BLOOD SPECIMEN / Unknown Venipuncture / Unknown 01/24/2022 7:57 AM CDT 01/24/2022 8:02 AM CDT Elda Stuart MD LAB - SEROLOGY ORDERABLES [facility] [address] [place] [address], [facility] [phone] * HIV-1 HIV-2 ANTIBODY + HIV P24 AG PANEL (01/24/2022 7:57 AM CDT) HIV Antigen/Antibod y 1 & 2 Non-reacti ve Non-react arie 01/24/2022 8:47 AM CDT [facility] Comment:No Laboratory eviden ce of HIV infection. Blood BLOOD SPECIMEN / Unknown Venipuncture / Unknown 01/24/2022 7:57 AM CDT 01/24/2022 8:02 AM CDT Elda Stuart MD LAB - CHEMISTRY ORDERABLES Performing Organization Address City/[facility]/ZIP Co de Phone Number [facility] [address] [place] [address], [place] [phone] * TRICHOMONAS VAGINALIS AMPLIFIED PROBE (01/24/2022 7:43 AM CDT) Trichomonas vaginalis Amplified Probe Negative Negative 01/25/2022 11:43 AM CDT [facility] Urine URINE / Unknown Collection / Unknown 01/24/2022 7:43 AM CDT 01/24/2022 7:55 AM CDT Narrative [facility] MICROBIOLOGY - 01/25/2022 11:43 AM CDT This test was developed and its performance characteristics determined by the [facility], [facility]. Urine specimens tested by the [facility] have not been cleared or approved by the U.S. Food and Drug Administration (FDA). The laboratory is regulated under the Clinical Laboratory Improvement Amendments (CLIA) as qualified to perform high-complexity testing. This test is used for clinical purposes. It should not be regarded as investigational or for research. Results based on detection/no detection of ribosomal RNA by amplified method. Elda Stuart MD LAB - MICROBIOL OGY ORDERABLES Performing Organization Address City/[facility]/ZIP Co de Phone Number [facility] [address] [place] [address], [facility] [phone] * CHLAMYDIA + GC AMPLIFIED PROBE (STL) (01/24/2022 7:42 AM CDT) Only the most recent of2 resultswithin the time period is included. Chlamydia Amplified Probe Negative Negative 01/24/2022 11:17 PM CDT [facility] MICROBIOLOGY GC Amplified Probe Negative Negative 01/24/2022 11:17 PM CDT [facility]CRO[facility]OLOGY Microbiology URINE / Unknown Collection / Unknown 01/24/2022 7:42 AM CDT 01/24/2022 7:55 AM CDT Narrative [facility] MICROBIOLOGY - 01/24/2022 11:17 PM CDT Results based on detection/no detection of ribosomal RNA by amplified method. Elda Stuart MD LAB - MICROBIOL OGY ORDERABLES [facility] MICROBIOLOGY [address] [place] [address], [facility] [phone] * (ABNORMAL) URINALYSIS W/MICROSCOPIC REFLEX TO CULTURE (01/24/2022 7:41 AM CDT) Color UA Yellow Straw, Yellow 01/24/2022 8:[address] [facility] Clarity UA Slt Cloudy(A) Clear 01/24/2022 8:[address] [facility] Specific [place] UA 1.011 1.005 - 1.030 01/24/2022 8:[address] [facility] pH UA 9.0(H) 5.0 - 8.0 pH 01/24/2022 8:[address] [facility] Protein UA Negative Negative 01/24/2022 8:[address] [facility] Glucose UA Negative Negative 01/24/2022 8:[address] [facility] Ketone UA Negative Negative 01/24/2022 8:[address] [facility] Bilirubin UA Negative Negative 01/24/2022 8:[address] [facility] Blood UA Negative Negative 01/24/2022 8:[address] [facility] Nitrite UA Negative Negative 01/24/2022 8:[address] [facility] Leukocyte Esterase Negative Negative 01/24/2022 8:[address] [facility] Urobilinogen UA Negative Negative mg/dL 01/24/2022 8:[address] [facility] RBC UA 3-5 None Seen, 0-2, 3-5 /HPF 01/24/2022 8:[address] [facility] WBC UA 0-5 None Seen, 0-5 /HPF 01/24/2022 8:01 AM CDT [facility] Bacteria UA Trace(A) None /HPF 01/24/2022 8:01 AM CDT [facility] Squamous Epithelial Cells UA 3-5 None Seen, 0-2, 3-5 /HPF 01/24/2022 8:01 AM CDT [facility] Mucus UA 1+ /LPF 01/24/2022 8:01 AM CDT [facility] Urine URINE SPECIMEN OBTAINED BY CLEAN CATCH PROCEDURE / Unknown Collection / Unknown 01/24/2022 7:41 AM CDT 01/24/2022 7:55 AM CDT Narrative [facility] - 01/24/2022 8:01 AM CDT Culture Not Indicated Elda Stuart MD LAB - URINALYSI S ORDERABLES Performing Organization Address City/[facility]/ZIP Co de Phone Number [facility] [address] [place] [address], [facility] [phone] * HCG URINE QUAL POCT NOTIFICATION (01/24/2022 7:14 AM CDT) Only the most recent of2 resultswithin the time period is included. Comment Notification Label Only - See Separate Report 01/24/2022 8:30 AM CDT [facility] Urine URINE / Unknown 01/24/2022 7 :14 AM CDT 01/24/2022 7:19 AM CDT Elda Stuart MD LAB - URINALYSI S ORDERABLES [facility] [address] [place] [address] * RENAL FUNCTION PANEL (01/01/2022 1:27 PM MARKETING AREA MANAGER) Glucose 73 65 - 99 mg/dL [facility] Comment: Fasting reference interval BUN 10 7 - 20 mg/dL [facility] Creatinine 0.74 0.50 - 1.00 mg/dL [facility] Comment: Patient is <18 years old. Unable to calculate eGFR. BUN/Creatinine Ratio NOT APPLICABLE (calc) [facility] Sodium 142 135 - 146 mmol/L [facility] Potassium 4.1 3.8 - 5.1 mmol/L [facility] Chloride 108 98 - 110 mmol/L [facility] CO2 24 20 - 32 mmol/L [facility] Calcium 9.3 8.9 - 10.4 mg/dL [facility] Phosphorus 4.5 3.0 - 5.1 mg/dL [facility] Albumin 4.0 3.6 - 5.1 g/dL [facility] Comment: REPORT COMMENT: COLLECTION KIT GIVEN TO PATIENT. PATIENT ADVISED TO RETURN. Test Performed at: [place] [address] DANTE LIRA DO,MPH Blood BLOOD SPECIMEN / Unknown 01/01/2022 1:27 PM MARKETING AREA MANAGER 01/01/2022 1:29 PM MARKETING AREA MANAGER Reji Gomez MD LAB - CHEMIS TRY ORDERABLES Performing Organization Address [facility] Co de Phone Number [facility] [address] [place] [address] * MAGNESIUM BLOOD (01/01/2022 1:27 PM MARKETING AREA MANAGER) Only the most recent of2 resultswithin the time period is included. Magnesium 2.0 1.5 - 2.5 mg/dL [facility] Comment: Test Performed at: [facility] [id number] [place] [address] DANTE LIRA DO,MPH Blood BLOOD SPECIMEN / Unknown 01/01/2022 1:27 PM MARKETING AREA MANAGER 01/01/2022 1:29 PM MARKETING AREA MANAGER Reji Gomez MD LAB - CHEMIS TRY ORDERABLES Performing Organization Address [facility] Co de Phone Number [facility] [address] [place] [address] * (ABNORMAL) URINALYSIS - POCT (IP) BEAKER INTERFACE (12/18/2021 5:07 PM MARKETING AREA MANAGER) Only the most recent of2 resultswithin the time period is included. Color UA POCT Yellow Straw, Yellow, Dark Yellow, Light Yellow 12/18/2021 5:13 PM MARKETING AREA MANAGER [facility] Clarity UA POCT Clear Clear 5:13 PM MARKETING AREA MANAGER [facility] Specific [place] UA POCT >=1.030 1.005 - 1.030 12/18/2021 5:13 PM [facility] pH UA POCT 5.5 5.0 - 8.0 pH 12/18/2021 5:13 PM [facility] Protein UA POCT Negative Negative 2 5:13 PM [facility] Blood UA POCT 2+(A) Negative 12/18/2021 5:13 PM [facility] Leukocyte UA POCT Negative Negative 12/18/2021 5:13 PM [facility] Nitrite UA POCT Negative Negative 2 5:13 PM [facility] Glucose UA POCT Negative Negative 2 5:13 PM [facility] Ketone UA POCT Negative Negative 12/18/2021 5:13 PM [facility] Bilirubin UA POCT Negative Negative 12/18/2021 5:13 PM [facility] Urobilinogen UA POCT 0.2 0.1 - 1.0 EU/dL 12/18/2021 5:13 PM [facility] Urine URINE / Unknown 12/18/2021 5 :07 PM MARKETING AREA MANAGER 12/18/2021 5:13 PM [facility] Reji Gomez MD LAB - POINT OF CARE ORDERABLES Performing Organization Address [facility]/State/[facility] Co de Phone Number [facility] [address] [place], [place] [id number] * URINALYSIS W/MICROSCOPIC NO CULTURE (10/31/2021 1:13 PM MARKETING AREA MANAGER) Only the most recent of3 resultswithin the time period is included. Color UA Yellow Straw, Yellow 10/31/2021 1:27 PM [facility] Clarity UA Clear Clear 10/31/2021 1:27 PM [facility] Specific [place] UA 1.015 1.005 - 1.030 10/31/2021 1:27 PM [facility] pH UA 6.0 5.0 - 8.0 pH 10/31/2021 1:27 PM [facility] Protein UA Negative Negative 10/31/2021 1:27 PM [facility] Glucose UA Negative Negative 10/31/2021 1:27 PM [facility] Ketone UA Negative Negative 10/31/2021 1:27 PM [facility] Bilirubin UA Negative Negative 10/31/2021 1:27 PM [facility] Blood UA Negative Negative 10/31/2021 1:27 PM [facility] Nitrite UA Negative Negative 10/31/2021 1:27 PM [facility] Leukocyte Esterase Negative Negative 10/31/2021 1:27 PM [facility] Urobilinogen UA Negative Negative mg/dL 10/31/2021 1:27 PM [facility] RBC UA 0-2 None Seen, 0-2, 3-5 /HPF 10/31/2021 1:27 PM [facility] WBC UA 0-5 None Seen, 0-5 /HPF 10/31/2021 1:27 PM [facility] Squamous Epithelial Cells UA 0-2 None Seen, 0-2, 3-5 /HPF 10/31/2021 1:27 PM [facility] Urine URINE SPECIMEN OBTAINED BY SINGLE CATHETERIZATION OF URINARY BLADDER / Unknown Collection / Unknown 10/31/2021 1:13 PM MARKETING AREA MANAGER 10/31/2021 1:13 PM MARKETING AREA MANAGER [facility] - 10/31/2021 1:27 PM MARKETING AREA MANAGER Elda Bryant MARINE FIREFIGHTER-CONCERT PROMOTER LAB - URINAL YSIS ORDERABLES [facility] [address] [place] [address], [facility] [phone] * URINE CULTURE (10/31/2021 1:13 PM MARKETING AREA MANAGER) Only the most recent of3 resultswithin the time period is included. Culture Urine No growth (<100 CFU/mL) [facility] 11/02/2021 4:16 AM MARKETING AREA MANAGER [facility] Urine URINE SPECIMEN OBTAINED BY SINGLE CATHETERIZATION OF URINARY BLADDER / Unknown Collection / Unknown 10/31/2021 1:13 PM MARKETING AREA MANAGER 10/31/2021 1:13 PM MARKETING AREA MANAGER Elda Bryant APRN-CONCERT PROMOTER LAB - MICROB IOLOGY ORDERABLES [facility] [address] [place] [address], [facility] [phone] * FL CYSTOGRAM VOIDING (10/31/2021 11:53 AM MARKETING AREA MANAGER) Anatomical Region Laterality Modality Abdomen, Pelvis Radio Fluoroscop y 10/31/2021 2:33 PM MARKETING AREA MANAGER Impressions 10/31/2021 2:35 PM MARKETING AREA MANAGER IMPRESSION: No vesicoureteral reflux. Normal morphology of the urethra. > Interpreting Provider: Claribel Garnett MD on 10/31/2021 2:35 PM Narrative 10/31/2021 2:35 PM MARKETING AREA MANAGER PROCEDURE: FL CYSTOGRAM VOIDING, DATE/TIME OF EXAM: 10/31/2021 11:54 AM, LOCATION [facility] INDICATION:Z87.440: Personal history of urinary (tract) infections ADDITIONAL CLINICAL INFORMATION: Ordering Provider Reason For Exam: Technologist Note: Additional: COMPARISON: US 10/24/2021 TECHNIQUE: Fluoroscopy was utilized for purposes of cystography. Contrast was injected into the bladder (600 mL Cystografin). A single filling cycle was required. FLUOROSCOPY DOSE: 5.6 Air Kerma Reference air kerma (ka,r). FLUOROSCOPY TIME: 1 minutes; Number of images: 61 FINDINGS: Piping Manager radiography shows normal mineralization and alignment at the pelvis and hips. Normal lower lumbar spine. Early filling images of the urinary bladder show no filling defect. Normal morphology of the urinary bladder. No reflux before or after voiding. Normal morphology of the urethra. A formal dose report is available in the EMR/PACS system Procedure Note Claribel Garnett MD - 10/31/2021 PROCEDURE: FL CYSTOGRAM VOIDING, DATE/TIME OF EXAM: 10/31/2021 11:54AM, LOCATION [facility] INDICATION:Z87.440: Personal history of urinary (tract) infections ADDITIONAL CLINICAL INFORMATION: Ordering Provider Reason For Exam: Technologist Note: Additional: COMPARISON: US 10/24/2021 TECHNIQUE: Fluoroscopy was utilized for purposes of cystography. Contrast wasinjected into the bladder (600 mL Cystografin). A single filling cycle wasrequired. FLUOROSCOPY DOSE: 5.6 Air Kerma Reference air kerma (ka,r). FLUOROSCOPY TIME: 1 minutes; Number of images: 61 FINDINGS: Piping Manager radiography shows normal mineralization and alignment at thepelvis and hips. Normal lower lumbar spine. Early filling images of the urinary bladder show no filling defect.Normal morphology of the urinary bladder. No reflux before or after voiding. Normal morphology of the urethra. A formal dose report is available in the EMR/PACS system IMPRESSION: No vesicoureteral reflux. Normal morphology of the urethra. > Interpreting Provider: Claribel Garnett MD on 10/31/2021 2:35 PM Elda Bryant APRN-[facility] FLUOROSCOPY ORDERABLES * CALCIUM/CREAT RATIO URINE RANDOM PANEL (10/24/2021 3:48 PM MARKETING AREA MANAGER) Calcium Random Urine 20.6 Not Established mg/dL 10/24/2021 4:16 PM MARKETING AREA MANAGER [facility] Creatinine Urine 84 Not Established mg/dL 10/24/2021 4:16 PM MARKETING AREA MANAGER [facility] Calcium/Creati nine Ratio Urine 0.25 mg/mg 10/24/2021 4:16 PM MARKETING AREA MANAGER [facility] Urine URINE SPECIMEN OBTAINED BY CLEAN CATCH PROCEDURE / Unknown Collection / Unknown 10/24/2021 3:48 PM MARKETING AREA MANAGER 10/24/2021 3:50 PM MARKETING AREA MANAGER [facility] URINE CHEMISTRY ORDERABLES Performing Organization Address [facility]/State/[facility] Co de Phone Number [facility] [address] [place] [address], [facility] [phone] * US KIDNEY AND BLADDER (10/24/2021 1:55 PM MARKETING AREA MANAGER) Anatomical Region Laterality Modality Abdomen Ultrasound 10/24/2021 1:11 PM MARKETING AREA MANAGER Impressions 10/24/2021 2:01 PM MARKETING AREA MANAGER 1. Nonobstructing right nephrolithiasis. 2. Mild left pelviectasis and proximal ureteral prominence. Reading Radiologist: Carole Bernardo on 10/24/2021 at 2:01 PM Narrative 10/24/2021 2:01 PM MARKETING AREA MANAGER INDICATION: Dysuria ORDERING PROVIDER: ELDA BRYANT COMPARISON: Outside ultrasound dated 09/20/2021 TECHNIQUE: Tinoco scale and color Doppler ultrasound imaging of the kidneys and urinary bladder per department protocol. FINDINGS: Right kidney: 10.3 cm in length, previously 10.7 cm The cortical echotexture and thickness are normal. No urinary tract dilation is present. Several echogenic foci with twinkle artifact are seen in the right kidney. The largest measures 0.4 cm. The perinephric soft tissues are normal. Left kidney: 10.9 cm in length, previously 10.6 cm The cortical echotexture and thickness are normal. There is mild pelviectasis with the AP diameter of the renal pelvis measuring 1.3 cm, grossly similar to prior. The proximal left ureter is mildly prominent measuring 0.6 cm. There is no shadowing calculus. The perinephric soft tissues are normal. Urinary bladder: The bladder is partially filled. The bladder wall appears normal. Bilateral ureteral jets are seen. Procedure Note Carole Bernardo MD - 10/24/2021 INDICATION: Dysuria ORDERING PROVIDER: ELDA BRYANT COMPARISON: Outside ultrasound dated 09/20/2021 TECHNIQUE: Tinoco scale and color Doppler ultrasound imaging of the kidneysand urinary bladder per department protocol. FINDINGS: Right kidney: 10.3 cm in length, previously 10.7 cm The cortical echotexture and thickness are normal. No urinary tractdilation is present. Several echogenic foci with twinkle artifact are seen in theright kidney. The largest measures 0.4 cm. The perinephric soft tissues arenormal. Left kidney: 10.9 cm in length, previously 10.6 cm The cortical echotexture and thickness are normal. There is mildpelviectasis with the AP diameter of the renal pelvis measuring 1.3 cm, grossly similarto prior. The proximal left ureter is mildly prominent measuring 0.6 cm.There is no shadowing calculus. The perinephric soft tissues are normal. Urinary bladder: The bladder is partially filled. The bladder wall appears normal. Bilateral ureteral jets are seen. IMPRESSION 1. Nonobstructing right nephrolithiasis. 2. Mild left pelviectasis and proximal ureteral prominence. Reading Radiologist: Carole Bernardo on 10/24/2021 at 2:01 PM Elda Bryant MARINE FIREFIGHTER-CONCERT PROMOTER US ORDERABLE S * TRICHOMONAS RAPID TEST (04/19/2021 3:23 AM CDT) Trichomonas Rapid Test Negative Negative 04/19/2021 3:43 AM CDT [facility] Microbiology VAGINAL SWAB / Unknown Collection / Unknown 04/19/2021 3:23 AM CDT 04/19/2021 3:29 AM CDT Lynn Asencio MD LAB - MICROBIOLOGY O RDIBETH [address] [address], [facility] [phone] * XR KNEE RIGHT 3VW (07/07/2020 2:18 PM CDT) Anatomical Region Laterality Modality Lower Extremity Radiographic Claudia ging 07/07/2020 2:07 PM CDT Impressions 07/07/2020 2:26 PM CDT Probable small suprapatellar joint effusion. Reading Radiologist: Aric Berman on 07/07/2020 at 2:26 PM Narrative 07/07/2020 2:26 PM CDT INDICATION: Pain. COMPARISON: None available. TECHNIQUE: Frontal, lateral and sunrise radiographs of the right knee. FINDINGS: There is no fracture or osseous abnormality. The joint alignment is normal. Hazy suprapatellar fat suggests joint effusion. Procedure Note Aric Berman MD - 07/07/2020 INDICATION: Pain. COMPARISON: None available. TECHNIQUE: Frontal, lateral and sunrise radiographs of the right knee. FINDINGS: There is no fracture or osseous abnormality. The joint alignment is normal. Hazy suprapatellar fat suggests joint effusion. IMPRESSION Probable small suprapatellar joint effusion. Reading Radiologist: Aric Berman on 07/07/2020 at 2:26 PM Rafat Guerar MD DIAGNOSTIC IMAGING O MARIELLE * URINALYSIS - POCT (IP) NOTIFICATION (11/18/2019 3:30 PM MARKETING AREA MANAGER) Comment Notification Label Only - See Separate Report 11/18/2019 3:30 PM [facility] Urine URINE / Unknown 0 2:22 PM MARKETING AREA MANAGER Katelyn Bright MD LAB - URINALYS IS ORDERABLES [facility] [address] [place] [address] * TSH (10/28/2019 4:09 PM MARKETING AREA MANAGER) TSH 0.83 0.35 - 4.95 uIU/mL 10/28/2019 5:08 PM [facility] Blood BLOOD SPECIMEN / Unknown Venipuncture / Unknown 10/28/2019 4:09 PM MARKETING AREA MANAGER 10/28/2019 4:24 PM MARKETING AREA MANAGER Sarah Dawkins MD LAB - CHEMISTRY ORDE RABLES Performing Organization Address City/[facility]/ZIP Co de Phone Number [facility] [address] [place] [phone] * (ABNORMAL) LIPID PROFILE (10/28/2019 4:09 PM MARKETING AREA MANAGER) Cholesterol 187(H) <170 mg/dL 10/28/2019 4:58 PM [facility] Triglycerides 150(H) <150 mg/dL 10/28/2019 4:58 PM [facility] HDL Cholesterol 57 >40 mg/dL 9 4:58 PM [facility] LDL Calculated 100(H) <100 mg/dL 10/28/2019 4:58 PM [facility] VLDL Calculated 30 12 - 38 mg/dL 10/28/2019 4:58 PM [facility] Chol HDL Ratio 3.3 <=5.0 10/28/2019 4:58 PM [facility] Blood BLOOD SPECIMEN / Unknown Venipuncture / Unknown 10/28/2019 4:09 PM MARKETING AREA MANAGER 10/28/2019 4:24 PM MARKETING AREA MANAGER Narrative [facility] - 10/28/2019 4:58 PM MARKETING AREA MANAGER Lipid Profile Comment: Adult references ranges are the recommendation of the [place] [employer] , for those patients >18 years old. Cholestrol LDL Triglycerides HDL -- -- -- <40 Low <170 <100 <150 Desirable 170-199 130-159 150-199 Borderline High >200 160-189 200-499 >60 High Risk factor status for Coronary Artery Disease is necessary to place these lab findings in perspective. Note: This test is for fasting patients only. A non-fasting state may alter some of these results. Sarah Dawkins MD LAB - CHEMISTRY ORDE RABTRISTAN [facility] [place] [address] * (ABNORMAL) DIFFERENTIAL MANUAL (10/28/2019 4:08 PM MARKETING AREA MANAGER) WBC Auto 6.4 x10E9/L 10/28/2019 4:46 PM [facility] WBC Corrected 10/28/2019 4:46 PM [facility] nRBC 10/28/2019 4:46 PM [facility] Neutrophil % Manual 71(H) 24 - 66 % 10/28/2019 4:46 PM [facility] Lymphocytes % Manual 19(L) 22 - 61 % 10/28/2019 4:46 PM [facility] Monocytes % Manual 10 3 - 15 % 10/28/2019 4:46 PM [facility] Cells Counted 100 # cells 10/28/2019 4:46 PM [facility] Platelet Estimation Adequate platelets Normal, Adequate platelets 10/28/2019 4:46 PM [facility] WBC Morph Normal 10/28/2019 4:46 PM [facility] Anisocytosis Occasional(A ) None 10/28/2019 4:46 PM [facility] Poikilocytosis Occasional(A ) None 10/28/2019 4:46 PM [facility] Blood BLOOD SPECIMEN / Unknown Venipuncture / Unknown 10/28/2019 4:08 PM MARKETING AREA MANAGER 10/28/2019 4:19 PM MARKETING AREA MANAGER Sarah Dawkins MD LAB - HEMATOLOGY ORD ERABLES [facility] [address] [place] [address] * (ABNORMAL) CBC W AUTO DIFFERENTIAL (10/28/2019 4:08 PM [facility]) Only the most recent of2 resultswithin the time period is included. WBC 6.4 4.5 - 14.5 x10E9/L 10/28/2019 4:23 PM [facility] WBC Corrected 10/28/2019 4:23 PM [facility] RBC 4.75 4.10 - 5.10 x10E12/L 10/28/2019 4:23 PM [facility] Hemoglobin 14.1 12.0 - 16.0 gm/dL 10/28/2019 4:23 PM [facility] Hematocrit 40.8 36.0 - 47.0 % 10/28/2019 4:23 PM [facility] MCV 85.9 78.0 - 98.0 fl 10/28/2019 4:23 PM [facility] MCH 29.7 25.0 - 35.0 pg 10/28/2019 4:23 PM [facility] MCHC 34.6 31.0 - 37.0 gm/dL 10/28/2019 4:23 PM [facility] Platelet Count 291 100 - 400 x10E9/L 10/28/2019 4:23 PM [facility] RDW-CV 12.1 11.5 - 14.0 % 10/28/2019 4:23 PM [facility] MPV 10.3(H) 6.0 - 9.5 fl 10/28/2019 4:23 PM [facility] nRBC Auto 0 /100 WBC 10/28/2019 4:23 PM [facility] Blood BLOOD SPECIMEN / Unknown Venipuncture / Unknown 10/28/2019 4:08 PM MARKETING AREA MANAGER 10/28/2019 4:19 PM [facility] Sarah Dawkins MD LAB - HEMATOLOGY ORD ERABLES [facility] [address] [place] [address] * (ABNORMAL) COMPREHENSIVE METABOLIC PANEL (10/28/2019 4:08 PM [facility]) Only the most recent of2 resultswithin the time period is included. Glucose 72 70 - 105 mg/dL 10/28/2019 4:53 PM [facility] Sodium 140 136 - 145 mmol/L 10/28/2019 4:53 PM [facility] Potassium 3.8 3.5 - 5.1 mmol/L 10/28/2019 4:53 PM [facility] Chloride 108(H) 98 - 107 mmol/L 10/28/2019 4:53 PM [facility] CO2 23 20 - 28 mmol/L 10/28/2019 4:53 PM [facility] Calcium 9.43 9.08 - 10.48 mg/dL 10/28/2019 4:53 PM [facility] Anion Gap 9 5 - 20 mmol/L 10/28/2019 4:53 PM [facility] BUN 8.3 5.3 - 18.7 mg/dL 10/28/2019 4:53 PM [facility] Creatinine 0.59(L) 0.61 - 1.07 mg/dL 10/28/2019 4:53 PM [facility] Alkaline Phosphatase 65(L) 100 - 390 U/L 10/28/2019 4:53 PM [facility] ALT 10 8 - 65 U/L 10/28/2019 4:53 PM [facility] AST 19 3 - 35 U/L 10/28/2019 4:53 PM [facility] Protein Total 8.1 6.3 - 8.2 gm/dL 10/28/2019 4:53 PM [facility] Albumin 4.4 3.3 - 4.9 gm/dL 10/28/2019 4:53 PM [facility] Bilirubin Total 0.2(L) 0.3 - 1.2 mg/dL 10/28/2019 4:53 PM [facility] eGFR by MDRD 10/28/2019 4:53 PM [facility] Comment: eGFR calculations are not performed for children under 18 years old. eGFR by MDRD 10/28/2019 4:53 PM [facility] Comment: eGFR calculations are not performed for children under 18 years old. Blood BLOOD SPECIMEN / Unknown Venipuncture / Unknown 10/28/2019 4:08 PM MARKETING AREA MANAGER 10/28/2019 4:24 PM MARKETING AREA MANAGER Sarah Dawkins MD LAB - CHEMISTRY MARK SAUER Performing Organization Address [facility] Co de Phone Number [facility] [address] [place] [phone] * PHOSPHORUS BLOOD (10/28/2019 4:08 PM MARKETING AREA MANAGER) Phosphorus 3.26 2.88 - 5.08 mg/dL 10/28/2019 4:43 PM MARKETING AREA MANAGER [facility] Blood BLOOD SPECIMEN / Unknown Venipuncture / Unknown 10/28/2019 4:08 PM MARKETING AREA MANAGER 10/28/2019 4:24 PM MARKETING AREA MANAGER Sarah Dawkins MD LAB - CHEMISTRY MARK SAUER Performing Organization Address [facility] Co de Phone Number [facility] [address] [place] [phone] * LIPASE BLOOD (10/28/2019 4:08 PM MARKETING AREA MANAGER) Only the most recent of2 resultswithin the time period is included. Lipase 15 10 - 220 U/L 10/28/2019 4:59 PM MARKETING AREA MANAGER [facility] Blood BLOOD SPECIMEN / Unknown Venipuncture / Unknown 10/28/2019 4:08 PM MARKETING AREA MANAGER 10/28/2019 4:24 PM MARKETING AREA MANAGER Sarah Dawkins MD LAB - CHEMISTRY MARK SAUER Performing Organization Address [facility] Co de Phone Number [facility] [address] [place] [address] * AMYLASE BLOOD (10/28/2019 4:08 PM MARKETING AREA MANAGER) Amylase 33 5 - 65 U/L 10/28/2019 4:59 PM MARKETING AREA MANAGER [facility] Blood BLOOD SPECIMEN / Unknown Venipuncture / Unknown 10/28/2019 4:08 PM MARKETING AREA MANAGER 10/28/2019 4:24 PM MARKETING AREA MANAGER Sarah Dawkins MD LAB - CHEMISTRY ORDKlaudia SAUER [facility] [address] [place] [address] * TISSUE TRANSGLUTAMINASE AB IGA (02/19/2019 10:59 AM CDT) TTG Antibody IgA <2 0 - 3 U/mL 02/20/2019 4:07 PM CDT [facility] ([facility]) Comment: Negative 0 - 3 Weak Positive 4 - 10 Positive >10 Tissue Transglutaminase (tTG) has been identified as the endomysial antigen. Studies have demonstr- ated that endomysial IgA antibodies have over 99% specificity for gluten sensitive enteropathy. Blood BLOOD SPECIMEN / Unknown Lab Venipuncture / Unknown 02/19/2019 10:59 AM CDT 02/19/2019 11:37 AM CDT Narrative [facility] ([facility]) - 02/20/2019 4:07 PM CDT Performed at: - Lab[address] [id number] Senior Scrum Master: Rufus Castillo PhD, Phone: [phone] Allie He MD LAB - SEROLOGY ORDER IKE Performing Organization Address City/[facility]/ZIP Co de Phone Number [facility] ([facility]) [address] [place] [address] * ERYTHROCYTE SEDIMENTATION RATE (02/19/2019 10:59 AM CDT) Pathologist [facility] Erythrocyte Sedimentation Rate Automated 15 0 - 20 MM/HR 02/19/2019 11:52 AM CDT [facility] Blood BLOOD SPECIMEN / Unknown Lab Venipuncture / Unknown 02/19/2019 10:59 AM CDT 02/19/2019 11:37 AM CDT Allie He MD LAB - HEMATOLOGY ORD ERABLES Performing Organization Address City/[facility]/ZIP Co de Phone Number [facility] [address] [place] [address] * IGA BLOOD (02/19/2019 10:59 AM CDT) IgA 171 65 - 421 mg/dL 02/19/2019 12:12 PM CDT [facility] Blood BLOOD SPECIMEN / Unknown Lab Venipuncture / Unknown 02/19/2019 10:59 AM CDT 02/19/2019 11:37 AM CDT Allie He MD LAB - CHEMISTRY MARK SAUER [facility] [address] [facility] [place] [address] * CT HEAD WO CONTRAST (02/15/2019 12:57 PM CDT) Anatomical Region Laterality Modality Head Computed Tomogra phy 02/15/2019 1:02 PM CDT Impressions 02/15/2019 1:08 PM CDT No acute intracranial process. Reading Radiologist: Suad Moon MD on 02/15/2019 at 1:08 PM Narrative 02/15/2019 1:08 PM CDT EXAMINATION: Computed tomography (CT) of the head without contrast HISTORY: Migraine without aura, intractable, with status migrainosus TECHNIQUE: CT of the head was performed without contrast according to standard protocol. DOSE: CTDIvol: 36.17 mGy, DLP: 653.46 mGy-cm The reported CTDIvol (mGy) and DLP (mGy-cm) values are generated from scan acquisition factors based on a 32 cm body phantom or 16 cm head phantom and may underestimate or overestimate the actual patient dose based on patient size and other factors. FINDINGS: No prior study is available for comparison at the time of this dictation. There is no CT evidence of acute infarct. There is no intracranial hemorrhage. There is no mass effect, midline shift, hydrocephalus or extra-axial fluid collection. The brain parenchyma is within normal limits. There is no significant finding of the paranasal sinuses, orbits or mastoid air cells. There is no significant osseous abnormality. Procedure Note Suad Moon MD - 02/15/2019 EXAMINATION: Computed tomography (CT) of the head without contrast HISTORY: Migraine without aura, intractable, with status migrainosus TECHNIQUE: CT of the head was performed without contrast according to standard protocol. DOSE: CTDIvol: 36.17 mGy, DLP: 653.46 mGy-cm The reported CTDIvol (mGy) and DLP (mGy-cm) values are generated from scan acquisition factors based on a 32 cm body phantom or 16 cm head phantom and may underestimate or overestimate the actual patient dose based on patient size and other factors. FINDINGS: No prior study is available for comparison at the time of this dictation. There is no CT evidence of acute infarct. There is no intracranial hemorrhage. There is no mass effect, midline shift, hydrocephalus or extra-axial fluid collection. The brain parenchyma is within normal limits. There is no significant finding of the paranasal sinuses, orbits or mastoid air cells. There is no significant osseous abnormality. IMPRESSION No acute intracranial process. Reading Radiologist: Suad Moon MD on 02/15/2019 at 1:[address] ORDERABLES * AUDIOLOGY/TYMPANOMETRY ORDER (06/04/2018 7:42 PM CDT) Narrative 06/04/2018 7:42 PM CDT Ordered by an unspecified provider. Scanned Document AUDIOLOGY SERVICES O RDERABLES * AUDIOLOGY/TYMPANOMETRY ORDER (01/20/2018 10:06 PM CDT) Narrative 01/20/2018 10:06 PM CDT Ordered by an unspecified provider. Scanned Document AUDIOLOGY SERVICES O RDERABLES * HCG URINE QUALITATIVE - POCT (IP) CLAUDIA (10/02/2017 11:54 AM MARKETING AREA MANAGER) HCG Qual Urine Negative Negative [facility] POCT TESTING QC Verified Yes Yes [facility] PO CT TESTING Urine URINE / Unknown 10/02/2017 1 1:54 AM MARKETING AREA MANAGER Adela Garcia MD LAB - POINT OF [place] RE ORDERABLES [facility] POCT TESTING [address] [phone] * AUDIOLOGY/TYMPANOMETRY ORDER (01/28/2015 7:24 AM CDT) Narrative 01/28/2015 7:24 AM CDT Ordered by an unspecified provider. Scanned Document AUDIOLOGY SERVICES O RDERABLES * CULTURE EAR (09/11/2010 4:40 PM MARKETING AREA MANAGER) Only the most recent of2 resultswithin the time period is included. Report [facility] Comment: Final - GRAM STAIN Rare Epithelial cells Rare gram positive cocci CULTURE COAGULASE NEGATIVE STAPHYLOCOCCUS Moderate ASPERGILLUS SPECIES Moderate EAR PART / Unknown 0 4:40 PM MARKETING AREA MANAGER 09/11/2010 4:40 PM MARKETING AREA MANAGER Greta Kwong RN,MATA LAB - MICROBIOLOGY ORDERABLES Performing Organization Address [facility] Co de Phone Number [facility] [address] [place] [address] * CULTURE FUNGUS OTHER (09/11/2010 4:09 PM MARKETING AREA MANAGER) Only the most recent of2 resultswithin the time period is included. Report [facility] Comment: Final - CALCOFLUOR STAIN Heavy Septate hyphae seen. CULTURE Growth of ASPERGILLUS SPECIES Moderate EAR PART / Unknown 0 4:09 PM MARKETING AREA MANAGER 09/11/2010 4:09 PM MARKETING AREA MANAGER MATA Maurice RN LAB - MICROBIOLOGY ORDERABLES Performing Organization Address City/[facility] Co de Phone Number [facility] [address] [place] [address] Care Teams General Lot Attendant Relationship Specialty Start Date End Date Darrian Luna MD [address] [facility] [place] [address] PCP - General Pediatrics 02/04/19
--- OUTSIDE RECORDS SUMMARY | 2024-12-10 13:32 | XMS_ITS | CONTINUITY OF CARE DOCUMENT ---
Author Name kelly mendoza Address Unknown Organization [facility] Address [address] [place] [address] [address] [place] [address] Phone [phone] Care Team Providers Care Reservoir Engineering Consultant Name Role Phone Marcos Juan MD Unavailable Marcos Juan MD Unavailable [phone] INSURANCE PROVIDERS Payer name Policy type / Coverage type [place] red republican ID [facility] [id number]
--- OUTSIDE RECORDS SUMMARY | 2024-12-10 13:32 | XMS_ITS | Patient Health Record ---
Author Organization [facility] [facility] Address [address] [place] [address] Care Team Providers Care Special Education Supervisor Name Role Phone ARCELIA DANIELS PA-C Primary Care Provider Cyndi Nix Unavailable [phone] KimmyPaulMani Unavailable [phone] Migration, Provider Unavailable Unavailable Allergies No Known Allergies Results Component Value Reference Range Notes DRUG SCREEN, 14 DRUGS (DETEC TIMED), URINE Reviewed date:12/30/2023 12:00:00 AM Interpretation: Performing Lab: Notes/Report: Amphetamine negative Barbiturates negative Benzodiazipine negative Buprenorphine negative Cocaine negative MDMA/Ectasy negative Methadone negative Methamphetamine negative Morphine negative note 90, pos thc Oxycodone negative Phenocyclidine negative THC positive DRUG SCREEN, 14 DRUGS (DETEC TIMED), URINE Reviewed date:03/09/2024 12:00:00 AM Interpretation: Performing Lab: Notes/Report: Reason For Referral No Information Medications Medication SIG (Take, Route, Frequency, Duration) Notes Start Date End Date Status FLUoxetine HCl 10 MG TAKE 1 CAPSULE BY MOUTH EVERY DAY FOR 30 DAYS for 90 Active NUVARING 0.12 MG-0.015 MG/24 HR VAGINAL *Reorder from [facility] for eRx and Interaction Alerts* 03/09/2024 Unknown Nurtec 75 MG Oral [facility]* 03/09/2024 Unknown lamoTRIgine 25 MG 3 tablets Oral once a day for 90 days Active lamoTRIgine 100 MG 1 tablet Orally Once a day for 90 days Active hydrOXYzine HCl 10 MG 1 tablet Orally twice a day for 30 days As needed Active AIMOVIG AUTOINJECTOR 140 MG/ML SUBCUTANEOUS AUTO-INJECTOR *Reorder from [facility] for eRx and Interaction Alerts* 03/09/2024 Unknown Social History Tobacco Use: Social History Observation Description Date Details (start date - stop date) Never Smoker NA - NA Sex Assigned At : Social History Observation Description Sex Assigned At Female Tobacco Control (Standard) Question Answer Notes Tobacco use: Nonsmoker Problems Problem Type SNOMED Code ICD Code Onset Dates Problem Status W/U Status Risk Notes Problem Moderate recurrent major depression (78225673) Major depressive disorder, recurrent, moderate (F33.1) Active confirmed Problem Generalized anxiety disorder (39887432) Generalized anxiety disorder (F41.1) Active confirmed Problem Attention deficit hyperactivity disorder, combined type (91061379) Attention-deficit hyperactivity disorder, combined type (F90.2) Active confirmed Vital Signs Heart Rate 66 /min 01/01/2024 Height-cm 172.72 cm 01/01/2024 Blood pressure diastolic 77 mm Hg 01/01/2024 Weight-kg 88.00 kg 01/01/2024 Height 68.00 in 01/01/2024 Blood pressure systolic 112 mm Hg 01/01/2024 Weight 194.00 lbs 01/01/2024 BMI 29.5 kg/m2 01/01/2024 Encounters Encounter Location Date Provider Diagnosis [facility] [employer] [place] [address] [facility] [address] [address] 12/23/2023 Cyndi Stephens Alcohol abuse, uncomplicated F10.10 ; Major depressive disorder, recurrent, moderate F33.1 ; Generalized anxiety disorder F41.1 and Attention-deficit hyperactivity disorder, predominantly inattentive type F90.0 [facility] [employer] [facility] [address] [address] 12/30/2023 Mani Oneal Attention-deficit hyperactivity disorder, unspecified type F90.9 [facility] [employer] [facility] [address] [facility] [address] [address] 01/01/2024 Cyndi Stephens Attention-deficit hyperactivity disorder, combined type F90.2 ; Generalized anxiety disorder F41.1 and Major depressive disorder, recurrent, moderate F33.1 [facility] [employer] [place] [address] [facility] [address] [address] 01/05/2024 Provider Migration Attention-deficit hyperactivity disorder, combined type F90.2 [facility], [facility] [address] [place] [address] 01/27/2024 Cyndi Angelo Generalized anxiety disorder F41.1 ; Attention-deficit hyperactivity disorder, combined type F90.2 and Major depressive disorder, recurrent, moderate F33.1 [facility], [facility] [address] [place] [address] 02/10/2024 Cyndi Angelo Generalized anxiety disorder F41.1 ; Major depressive disorder, recurrent, moderate F33.1 and Attention-deficit hyperactivity disorder, combined type F90.2 [facility], [facility] [address] [place] [address] 02/16/2024 Provider Migration Major depressive disorder, recurrent, moderate F33.1 [facility], [facility] [address] [place] [address] 03/09/2024 Cyndi Angelo Generalized anxiety disorder F41.1 ; Major depressive disorder, recurrent, moderate F33.1 and Attention-deficit hyperactivity disorder, combined type F90.2 [facility], [facility] [address] [place] [address] 03/15/2024 Provider Migration Attention-deficit hyperactivity disorder, combined type F90.2 [facility], [facility] [address] [place] [address] 04/13/2024 Cyndi Angeol Major depressive disorder, recurrent, moderate F33.1 ; Generalized anxiety disorder F41.1 and Attention-deficit hyperactivity disorder, combined type F90.2 [facility], [facility] [address] [place] [address] 05/18/2024 Cyndi Angelo Major depressive disorder, recurrent, moderate F33.1 ; Generalized anxiety disorder F41.1 and Attention-deficit hyperactivity disorder, combined type F90.2 [facility], [facility] [address] [place] [address] 06/24/2024 Cyndi Angelo Major depressive disorder, recurrent, moderate F33.1 ; Generalized anxiety disorder F41.1 and Attention-deficit hyperactivity disorder, combined type F90.2 [facility], [facility] [address] [place] [address] 07/29/2024 Cyndi Angelo Major depressive disorder, recurrent, moderate F33.1 ; Generalized anxiety disorder F41.1 and Attention-deficit hyperactivity disorder, combined type F90.2 [facility] [address] [place] [address] 09/16/2024 Cyndi Stephens Major depressive disorder, recurrent, moderate F33.1 ; Generalized anxiety disorder F41.1 and Attention-deficit hyperactivity disorder, combined type F90.2 [facility] [address] [place] [address] 10/14/2024 Cyndi Stephens Major depressive disorder, recurrent, moderate F33.1 ; Generalized anxiety disorder F41.1 and Attention-deficit hyperactivity disorder, combined type F90.2 [facility] [address] [place] [address] 11/25/2024 Cyndi Stephens Major depressive disorder, recurrent, moderate F33.1 ; Generalized anxiety disorder F41.1 and Attention-deficit hyperactivity disorder, combined type F90.2 [facility] [address] [place] [address] 12/23/2023 Provider Migration [facility], [facility] [address] [place] [address] 01/05/2024 Provider Migration [facility], [facility] [address] [place] [address] 01/22/2024 Provider Migration [facility], [facility] [address] [place] [address] 01/28/2024 Provider Migration [facility], [facility] [address] [place] [address] 01/29/2024 Provider Migration [facility], [facility] [address] [place] [address] 02/16/2024 Provider Migration [facility], [facility] [address] [place] [address] 03/15/2024 Provider [facility], [facility] [address] [place] [address] 03/20/2024 Provider [facility], [facility] [address] [address] 03/21/2024 Provider Migration Assessments Encounter Date Diagnosis (ICD Code) Assessment Notes Treatment Notes Treatment Clinical Notes Section Notes 04/13/2024 Major depressive disorder, recurrent, moderate (ICD-10 - F33.1) Increase fluoxetine to 20mg daily for mood, anxiety, irritability. Patient educated on all medications including potential benefits, side effects, risks. Educated on proper dosing schedule and importance of compliance. 04/13/2024 Generalized anxiety disorder (ICD-10 - F41.1) 06/24/2024 Major depressive disorder, recurrent, moderate (ICD-10 - F33.1) 07/29/2024 Major depressive disorder, recurrent, moderate (ICD-10 - F33.1) Common side effects to SSRI medications include headaches, dry mouth/eye, GI upset (including indigestion, nausea, diarrhea), sleeping problems (insomnia or drowsiness), decreased libido, blurred vision, dizziness. Generally, side effects will subside or lessen with time and are common during drug initiation and dose changes. If they persist please contact the office. Second generation antipsychotics (SGAs) have metabolic syndrome issues with weight gain, increase in prolactin, increased waist circumference, increased lipids, and increased glucose. Thus routine monitoring of weight, metabolic labs, etc. is indicated. A general rank ordering of antipsychotics that have the greatest to the least risk of metabolic effects is olanzapine, quetiapine, risperidone, ziprasidone, and aripiprazole. However, weight gain can occur with all of these drugs and considerable variability exists among patients receiving the same drug regarding the risk of metabolic effects. Anti-psychotic agents not only increase the risk of metabolic disorder, they also increase the risk of CVA, akathisia, and movement disorders including EPS or tardive dyskinesia (more common with first generation antipsychotics) and more. 09/16/2024 Major depressive disorder, recurrent, moderate (ICD-10 [...] present immediately to the emergency room. 10/14/2024 Major depressive disorder, recurrent, moderate (ICD-10 [...] present immediately to the emergency room. 11/25/2024 Major depressive disorder, recurrent, moderate (ICD-10 [...] to present immediately to the emergency room. 01/01/2024 Major depressive disorder, recurrent, moderate (ICD-10 - F33.1) 01/01/2024 Generalized anxiety disorder (ICD-10 - F41.1) 01/01/2024 Attention-defici t hyperactivity disorder, combined type (ICD-10 - F90.2) 01/05/2024 Attention-defici t hyperactivity disorder, combined type (ICD-10 - F90.2) 02/10/2024 Major depressive disorder, recurrent, moderate (ICD-10 - F33.1) 02/10/2024 Generalized anxiety disorder (ICD-10 - F41.1) 02/10/2024 Attention-defici t hyperactivity disorder, combined type (ICD-10 - F90.2) 02/16/2024 Major depressive disorder, recurrent, moderate (ICD-10 - F33.1) 03/15/2024 Attention-defici t hyperactivity disorder, combined type (ICD-10 - F90.2) 05/18/2024 Major depressive disorder, recurrent, moderate (ICD-10 - F33.1) Start Abilify 2mg daily for mood, irritability. Continue fluoxetine 20mg daily. Patient educated on all medications including potential benefits, side effects, risks. Educated on proper dosing schedule and importance of compliance. 03/09/2024 Major depressive disorder, recurrent, moderate (ICD-10 - F33.1) 03/09/2024 Generalized anxiety disorder (ICD-10 - F41.1) 03/09/2024 Attention-defici t hyperactivity disorder, combined type (ICD-10 - F90.2) 01/27/2024 Major depressive disorder, recurrent, moderate (ICD-10 - F33.1) 01/27/2024 Generalized anxiety disorder (ICD-10 - F41.1) 01/27/2024 Attention-defici t hyperactivity disorder, combined type (ICD-10 - F90.2) 12/30/2023 Attention-defici t hyperactivity disorder, unspecified type (ICD-10 - F90.9) 12/23/2023 Alcohol abuse, uncomplicated (ICD-10 - F10.10) 12/23/2023 Major depressive disorder, recurrent, moderate (ICD-10 - F33.1) 12/23/2023 Generalized anxiety disorder (ICD-10 - F41.1) 12/23/2023 Attention-defici t hyperactivity disorder, 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 Wants to focus on mood/anxiety first. 06/24/2024 Attention-defici t hyperactivity disorder, combined type (ICD-10 - F90.2) 07/29/2024 Attention-defici t hyperactivity disorder, combined type (ICD-10 - F90.2) 09/16/2024 Attention-defici t hyperactivity disorder, combined type (ICD-10 - F90.2) 10/14/2024 Attention-defici t hyperactivity disorder, combined type (ICD-10 - F90.2) 11/25/2024 Attention-defici t hyperactivity disorder, combined type (ICD-10 - F90.2) 05/18/2024 Attention-defici t hyperactivity disorder, combined type (ICD-10 - F90.2) Stop Concerta, hold off on starting new medication. Wants to focus on mood/anxiety first. 06/24/2024 Other Decrease fluoxetine to 10mg daily Increase Abilify to 5mg daily. Patient educated on all medications including potential benefits, side effects, risks. Educated on proper dosing schedule and importance of compliance. 07/29/2024 Other Increase fluoxetine to 20mg daily for mood, anxiety. Patient educated on all medications including potential benefits, side effects, risks. Educated on proper dosing schedule and importance of compliance. 09/16/2024 Other Stop abilify. Start lamictal- take 25mg daily for two weeks then 50mg daily for mood, irritability. Patient educated on all medications including potential benefits, side effects, risks. Educated on proper dosing schedule and importance of compliance. 10/14/2024 Other Increase Lamictal 75 mg daily [...] of psychotropic medications. -Crisis prevention hotline 988. 11/25/2024 Other Increase lamictal to 100mg daily [...] of psychotropic medications. -Crisis prevention hotline 988. Plan Of Treatment Next Appt Details Provider Name:Cyndi Stephens, 01/06/2025 08:00:00 AM, [facility], [facility] [address], [place], [address], Insurance Providers Payer Name Payer Address Payer Phone Subscriber Number Group Number Insured Name Patient Relationship to Insured Coverage Start Date Coverage End Date [id number] Ppo [address] [place] [address] [id number] CARLINE GÓMEZ Self - patient is the insured Medical (General) History Surgical History Surgery Date(Month/Year) Eardrum revision ([id number])
[2024-12-10 13:36] VITALS: BP 121/72; PULSE 97; RESP 18; TEMP 37.2; O2SAT 100
[2024-12-10 13:52] LABS: EDINFLUASCREEN Negative (Negative); EDINFLUBSCREEN Negative (Negative)
[2024-12-10 13:54] LABS: EDCOVIDSCREEN Negative (Negative)
--- NOTE | 2024-12-10 14:51 | ED.GENADULT ---
HPI - General Adult General Chief complaint: Upper Respiratory Infection Stated complaint: flu symptoms Source: patient Mode of arrival: ambulatory Limitations: no limitations History of Present Illness HPI narrative: Patient presents for evaluation of sick symptoms for last two days. Symptoms include cough, pressure in the ears, sore throat secondary to coughing, generalized body aches, chills and hot flashes. No diarrhea or shortness of breath. She has recently been exposed to influenza and strep. She took dayquil for her symptoms but symptoms persist. She does vape. Related Data Home Medications ?Medication ?Instructions ?Recorded ?Confirmed ?Last Taken ?Type fluoxetine 10 mg capsule (Prozac) 10 mg PO DAILY 02/17/24 09/07/24 Unknown History Allergies Allergy/AdvReac Type Severity Reaction Status Date / Time No Known Allergies Allergy Mild Verified 12/10/24 13:42 Review of Systems Review of Systems: CONSTITUTIONAL: Reports hot flashes and chills EYES: Denies visual changes, redness, or discharge. ENT: reports sinus congestion, sore throat and pressure in the ears CARDIOVASCULAR: Denies chest pain, palpitations, or edema. RESPIRATORY: reports cough. Denies shortness of breath. GASTROINTESTINAL: Denies abdominal pain, nausea, vomiting, or diarrhea. GENITOURINARY: Denies dysuria or hematuria. SKIN: Denies rash or itching. MUSCULOSKELETAL:Reports generalized body aches NEUROLOGIC: Denies headache, numbness, dizziness, or weakness. PSYCHIATRIC: Denies anxiety or depression. [facility] Past Medical History Medical History Seizure disorder Head trauma Migraine syndrome Migraine Anxiety Depression Surgical History Surgical History History of ear surgery Family History Family History Father Alcoholism Hypertension Mother Hypertension Depression Sibling Depression Grandparent Depression Hypertension Cancer Social History Social History Smoking status: Smoker, status unknown (She does vaping) Tobacco type: e-cigarettes/vaping Second hand tobacco smoke exposure: No Alcohol intake: current Alcohol use details: socially Substance use type: marijuana Do You Feel Safe in your Home?: Yes Lack of Transportation: No Lack of Food: Sometimes True Current Housing: I Have Housing Concerned About Future Housing: No Difficulty Paying Gas/Electric Bills: No Difficulty Paying for Meds: No Currently Unemployed: No Education: High School Diploma/GED Difficulty w/ Childcare or Family Care: No Living arrangements: with family Occupation/Education: occupation Gender identity (if verbalized by the patient): Female Sexual Orientation (if Verbalized by the Patient): Straight or Heterosexual Exam Narrative: GENERAL: Well-appearing, well-nourished, and in no acute distress. HEAD: Normocephalic, atraumatic. EYES: PERRLA and EOMI. ENT: Nares clear, no rhinorrhea or epistaxis. Mucous membranes moist. Oropharynx without tonsillar hypertrophy exudate or other lesions. Bilateral TMs pearly knight nonbulging NECK: Supple. No adenopathy or masses. No carotid bruits or JVD CHEST: cough present on exam. Clear to auscultation. No respiratory distress. No wheezes rales or rhonchi HEART: Regular rate and rhythm. No murmur heard. Normal peripheral pulses. ABDOMEN: Soft, nontender, nondistended, normal active bowel sounds. EXTREMITIES: Normal range of motion. No edema. SKIN: Warm, dry, no rash. NEURO: No focal deficits. Alert and oriented x3. PSYCH: Normal mood and affect. Course Course Emergency Course: This is a 19-year-old female who presented for evaluation of sick symptoms. She declined strep test. COVID and influenza negative. Chest x-ray normal. She has evidence of otitis media. Will tx with augmentin. Increase hydration. [id number] agents for symptom management. Follow up with primary provider. Go to the ER for worsening symptoms. Patient in agreement with plan of care. Level of Care: Express Care Visit Vital Signs Vital signs: Vital Signs Temperature 37.2 C 12/10/24 13:36 Pulse Rate 97 12/10/24 13:36 Respiratory Rate 18 12/10/24 13:36 Blood Pressure 121/72 12/10/24 13:36 Pulse Oximetry 100 12/10/24 13:36 Oxygen Delivery Room Air 12/10/24 13:36 Temperature 37.2 C 12/10/24 13:36 Pulse Rate 97 12/10/24 13:36 Respiratory Rate 18 12/10/24 13:36 Blood Pressure 121/72 12/10/24 13:36 Pulse Oximetry 100 12/10/24 13:36 Oxygen Delivery Room Air 12/10/24 13:36 Medical Decision Making Vital Signs Vital Signs: Vital Signs Temperature 37.2 C 12/10/24 13:36 Pulse Rate 97 12/10/24 13:36 Respiratory Rate 18 12/10/24 13:36 Blood Pressure 121/72 12/10/24 13:36 Pulse Oximetry 100 12/10/24 13:36 Oxygen Delivery Room Air 12/10/24 13:36 Temperature 37.2 C 12/10/24 13:36 Pulse Rate 97 12/10/24 13:36 Respiratory Rate 18 12/10/24 13:36 Blood Pressure 121/72 12/10/24 13:36 Pulse Oximetry 100 12/10/24 13:36 Oxygen Delivery Room Air 12/10/24 13:36 Lab Data Labs: Lab Results 12/10/24 12/10/24 Range/Units 13:51 13:52 POC Influenza A Ag Negative (Negative) POC Influenza B Ag Negative (Negative) POC SARS CoV-2 Ag Negative (Negative) Imaging Data Radiologist's impression: CHEST RADIOGRAPH, PA AND LATERAL CLINICAL HISTORY: productive cough . COMPARISON: None available TECHNIQUE: PA and lateral views of the chest. FINDINGS The cardiomediastinal silhouette is unremarkable. The lungs are clear. Visualized osseous structures and soft tissues are unremarkable. IMPRESSION: No focal infiltrate or effusion. Discharge Plan Discharge Clinical Impression: Exposure to strep throat, Otitis media Patient Disposition: Home, Self-Care Condition: Stable Instructions: Antibiotic Form, Ear Infection (GEN) Patient Language: Tongan Prescriptions: New amoxicillin-pot clavulanate 875-125 mg tablet 1 tablet PO Q12H Qty: 20 0RF fluconazole 150 mg tablet 150 mg PO ONCE Qty: 1 0RF No Action fluoxetine [Prozac] 10 mg capsule 10 mg PO DAILY gabapentin 300 mg capsule 300 mg PO DAILY Qty: 90 1RF Rx Instructions: start with 1 capsule at bedtime increase to 1 capsule twice a day after 4 days and then 1 in the morning and 2 at bedtime hold the daytime dose if drowsy naproxen 500 mg tablet 500 mg PO BID Qty: 60 1RF Rx Instructions: 1 tablet twice a day for 2 weeks and then as needed maximum 2 a day Follow-up/Referrals: Rg Garces DO [Primary Care Provider] - Stand Alone Forms: Work/School Release IP Time of Disposition: 15:15
== END 2024-12-10 15:27 | disposition home or self-care (01) ==
PROVIDERS: Emergency Provider Nurse Practitioner; PCP Internal Medicine
DX: H66.93 Otitis media, unspecified, bilateral (principal); Z20.818 Contact with and (suspected) exposure to other bacterial communicable diseases; Z20.822 Contact with and (suspected) exposure to COVID-19; F17.290 Nicotine dependence, other tobacco product, uncomplicated; F12.90 Cannabis use, unspecified, uncomplicated; F41.9 Anxiety disorder, unspecified; F32.A Depression, unspecified
CPT/HCPCS: 71046; 87426; 87804; 99213; G0463

== ENCOUNTER 2025-01-03 17:03 | Emergency (ER) | payer BC, SELFPAY ==
[2025-01-03 17:07] VITALS: BP 147/91; PULSE 69; RESP 16; TEMP 36.3; O2SAT 100
--- NOTE | 2025-01-03 17:26 | ED.EAR ---
HPI - Ear Problem General Chief complaint: Ear Stated complaint: bilateral Ear Infection Time Seen by Provider: 01/03/25 17:27 Source: patient Mode of arrival: ambulatory Limitations: no limitations History of Present Illness HPI Narrative: 19-year-old female presents with complaint of bilateral ear pain for 1 day. Patient reports recent nasal congestion that is resolving. Took DayQuil NyQuil cold and Sinus. Does not take any daily antihistamines. All systems reviewed and negative except as noted above. Related Data Home Medications ?Medication ?Instructions ?Recorded ?Confirmed ?Last Taken ?Type fluoxetine 10 mg capsule (Prozac) 10 mg PO DAILY 02/17/24 09/07/24 Unknown History Allergies Allergy/AdvReac Type Severity Reaction Status Date / Time No Known Allergies Allergy Mild Verified 01/03/25 17:10 Review of Systems Review of Systems: CONSTITUTIONAL: Denies fever, chills, or sweats. EYES: Denies visual changes, redness, or discharge. ENT: Denies rhinorrhea, congestion, sore throat . Reports bilateral ear pain. CARDIOVASCULAR: Denies chest pain, palpitations, or edema. RESPIRATORY: Denies cough or dyspnea. GASTROINTESTINAL: Denies abdominal pain, nausea, vomiting, or diarrhea. GENITOURINARY: Denies dysuria or hematuria. SKIN: Denies rash or itching. MUSCULOSKELETAL: Denies back pain, joint pain, or myalgia. NEUROLOGIC: Denies headache, numbness, or weakness. PSYCHIATRIC: Denies anxiety or depression. All other systems reviewed are negative, except as documented in HPI. [facility] Past Medical History Medical History Seizure disorder Head trauma Migraine syndrome Migraine Anxiety Depression Surgical History Surgical History History of ear surgery Family History Family History Father Alcoholism Hypertension Mother Hypertension Depression Sibling Depression Grandparent Depression Hypertension Cancer Social History Social History Smoking status: Smoker, status unknown (She does vaping) Tobacco type: e-cigarettes/vaping Second hand tobacco smoke exposure: No Alcohol intake: current Alcohol use details: socially Substance use type: marijuana Do You Feel Safe in your Home?: Yes Lack of Transportation: No Lack of Food: Sometimes True Current Housing: I Have Housing Concerned About Future Housing: No Difficulty Paying Gas/Electric Bills: No Difficulty Paying for Meds: No Currently Unemployed: No Education: High School Diploma/GED Difficulty w/ Childcare or Family Care: No Living arrangements: with family Occupation/Education: occupation Gender identity (if verbalized by the patient): Female Sexual Orientation (if Verbalized by the Patient): Straight or Heterosexual Comments At time of signature, agree with nursing past medical, surgical, social and family history. There is no relevant family history pertinent to the presenting complaint. Exam Narrative: GENERAL: This is a well-nourished, well-developed patient, in no apparent distress. HEAD: normocephalic, atraumatic. EYES: PERRL. Sclera clear/white. Vision is grossly intact. EARS: External ears normal, auditory canals clear and without drainage, fluid bilateral TMs with mild erythema. Hearing grossly intact. NOSE: External nose normal with no obvious nasal discharge, nares without redness, no rhinorrhea. THROAT: Mucous membranes moist, posterior pharynx clear. NECK: Neck supple, non-tender without lymphadenopathy, masses or thyromegaly. CARDIOVASCULAR: Regular rate and rhythm without murmurs, gallops, or rubs. RESPIRATORY: Clear to auscultation. Breath sounds equal bilaterally. No wheezes, rales, or rhonchi. SKIN: warm, Dry, intact with no suspicious lesions or rash, good texture and turgor. NEURO: awake, alert, and oriented to person, place and time. There were no obvious focal neurologic abnormalities. EXTREMITIES: No joint tenderness, effusion, or edema noted. Course Course Level of Care: Express Care Visit Vital Signs Vital signs: Vital Signs Temperature 36.3 C L 01/03/25 17:07 Pulse Rate 69 01/03/25 17:07 Respiratory Rate 16 01/03/25 17:07 Blood Pressure 147/91 H 01/03/25 17:07 Pulse Oximetry 100 01/03/25 17:07 Oxygen Delivery Room Air 01/03/25 17:07 Temperature 36.3 C L 01/03/25 17:07 Pulse Rate 69 01/03/25 17:07 Respiratory Rate 16 01/03/25 17:07 Blood Pressure 147/91 H 01/03/25 17:07 Pulse Oximetry 100 01/03/25 17:07 Oxygen Delivery Room Air 01/03/25 17:07 Reviewed Medical Decision Making MDM Narrative Medical decision making narrative: Please be advised this is a medical document. It is intended for [id number] communication. It is written in medical language and may contain unfamiliar abbreviations or verbiage. Medical documents are intended to carry relevant information, facts as evident, and the clinical opinion of the practitioner at the time of the encounter. This report may have been done utilizing a voice recognition system. Attempts have been made to correct errors. However, there may be uncorrected grammatical, spelling, and recognition errors present. The file time of this note does not necessarily represent the time of service. Vital Signs Vital Signs: Vital Signs Temperature 36.3 C L 01/03/25 17:07 Pulse Rate 69 01/03/25 17:07 Respiratory Rate 16 01/03/25 17:07 Blood Pressure 147/91 H 01/03/25 17:07 Pulse Oximetry 100 01/03/25 17:07 Oxygen Delivery Room Air 01/03/25 17:07 Temperature 36.3 C L 01/03/25 17:07 Pulse Rate 69 01/03/25 17:07 Respiratory Rate 16 01/03/25 17:07 Blood Pressure 147/91 H 01/03/25 17:07 Pulse Oximetry 100 01/03/25 17:07 Oxygen Delivery Room Air 01/03/25 17:07 Discharge Plan Discharge Clinical Impression: Acute serous otitis media of both ears Patient Disposition: Home, Self-Care Condition: Stable Instructions: Antibiotic Form, Fluid In The Ear (Serous Otitis Media) (ED) Additional Instructions: take antibiotic as prescribed until gone. Take ibuprofen or Tylenol every 6-8 hours as needed for pain. See your doctor if your pain is not improving. Patient Language: Syriac Prescriptions: New fluconazole 150 mg tablet 150 mg PO ONCE 1 Days Qty: 1 0RF amoxicillin 875 mg tablet 875 mg PO Q12H 10 Days Qty: 20 0RF No Action amoxicillin-pot clavulanate 875-125 mg tablet 1 tablet PO Q12H Qty: 20 0RF fluconazole 150 mg tablet 150 mg PO ONCE Qty: 1 0RF fluoxetine [Prozac] 10 mg capsule 10 mg PO DAILY gabapentin 300 mg capsule 300 mg PO DAILY Qty: 90 1RF Rx Instructions: start with 1 capsule at bedtime increase to 1 capsule twice a day after 4 days and then 1 in the morning and 2 at bedtime hold the daytime dose if drowsy naproxen 500 mg tablet 500 mg PO BID Qty: 60 1RF Rx Instructions: 1 tablet twice a day for 2 weeks and then as needed maximum 2 a day Follow-up/Referrals: Rg Garces DO [Primary Care Provider] - Time of Disposition: 17:31
== END 2025-01-03 17:34 | disposition home or self-care (01) ==
PROVIDERS: Emergency Provider Nurse Practitioner Family; PCP Internal Medicine
DX: H65.03 Acute serous otitis media, bilateral (principal); F17.290 Nicotine dependence, other tobacco product, uncomplicated; F41.9 Anxiety disorder, unspecified; F32.A Depression, unspecified
CPT/HCPCS: 99213; G0463

== ENCOUNTER 2025-02-25 08:24 | Emergency (ER) | payer BC, SELFPAY ==
--- OUTSIDE RECORDS SUMMARY | 2025-02-25 08:31 | XMS_ITS | Data Portability ---
Author Organization [facility] Address [address] [place] [address] [place] [address] Care Team Providers Care Plastics Engineering Teacher Name Role Phone ARCELIA DANIELS Primary Care Provider [phone] Assessment No assessment recorded. Plan of Treatment Reminders Order Date Submit Date Provider Last Modified By Organization Details Last Modified Time Details Appointments None recorded. Lab urinalysis , dipstick 2023 024 [place], [address], [address], [place], [address], 4 12:06:50 urinalysis , dipstick [address], [address], [address], [place], [address], 3 13:28:32 CMP, serum or plasma 2022 023 [facility] (Lab), [address], [place], [address], 3 05:52:51 lipid panel, blood 2022 023 [facility] (Lab), [address] [place], [address], 3 05:52:50 CBC w/ auto diff 2022 023 [facility] (Lab), [address], [place], [address], 3 05:52:50 prolactin, serum 2022 023 [facility] (Lab), [address] [place], [address], 3 05:52:52 TSH, serum or plasma 2022 023 [facility] (Lab), [address] [facility], [place], [address], 3 05:52:51 HbA1c (hemoglobi n A1c), blood 2022 023 [facility] (Lab), [address] [facility], [place], [address], 3 05:52:52 Referral primary care provider referral 2021 022 [email or web address] Not available 14:47:29 Procedures None recorded. Surgeries None recorded. Imaging None recorded. Medication Orders Diflucan 200 mg tablet 2023 024 [facility] #[id number], [address] [place], [address], 4 12:18:11 nystatin-t riamcinolo ne 100,000 unit/gram- 0.1 % topical [facility]int[facility] [address] [facility] [address] [place], [address], 4 12:18:10 Macrobid [address] [facility] [address] [place], [address], 4 12:02:19 Pyridium 100 mg tablet 2022 023 [facility]armacy #2510, [address] [place], [address], 4 12:02:03 Provera 10 mg tablet 2022 023 [email or web address], [address], [place], [id number], 3 16:37:03 NuvaRing 0.12 mg-0.015 mg/24 hr vaginal 2021 022 [email or web address] #45182, [address], [place], [id number], 3 13:22:22 Patient TargetsNo targets recorded. Patient InstructionsNo instructions recorded. Reason for Referral Primary Care Provider Referr al for Adult health examination Referring Physician: Shelley Armendariz DRESS FITTER, Encounter Date: 08/28/2022 Results Created Date Observation Date Name Description Value Unit Range Abnormal Flag Note LastModifiedBy Organization Detail LastModifiedTime 11/08/1911/08/2022 CBC W/DIF F WBC 8.8 10'3/ uL 4.5-13 .0 Not Available [facility] (Lab) [address] [place], [address], 11/09/2022 05:52:50 11/08/19 23 11/08/2022 CBC W/DIF F RBC 4.92 10'6/ uL (based on docume nted legal sex) 4.10-5 .30 Not Available [facility] (Lab) [address] [place], [address], 11/09/2022 05:52:50 11/08/19 23 11/08/2022 CBC W/DIF F HGB 14.6 g/dL (based on docume nted legal sex) 11.9-1 5.8 Not Available [facility] (Lab) [address] [place], [address], 11/09/2022 05:52:50 11/08/19 23 11/08/2022 CBC W/DIF F HCT 44.5 % (based on docume nted legal sex) 37.4-4 8.3 Not Available [facility] (Lab) [address], [place], [address], 11/09/2022 05:52:50 11/08/19 23 11/08/2022 CBC W/DIF F MCV 90.4 fL 82.0-9 9.0 Not Available [facility] (Lab) [address], [place], [address], 11/09/2022 05:52:50 11/08/19 23 11/08/2022 CBC W/DIF F MCH 29.7 pg 27.0-3 3.0 Not Available [facility] (Lab) [address], [place], [address], 11/09/2022 05:52:50 11/08/19 23 11/08/2022 CBC W/DIF F MCHC 32.8 g/dL 32.0-3 6.0 Not Available [facility] (Lab) [address], [place], [address], 11/09/2022 05:52:50 11/08/19 23 11/08/2022 CBC W/DIF F RDW 12.9 % 11.0-1 5.0 Not Available [facility] (Lab) [address], [place], [address], 11/09/2022 05:52:50 11/08/19 23 11/08/2022 CBC W/DIF F plt 306 10'3/ uL 150-45 0 Not Available [facility] (Lab) [address], [place], [address], 11/09/2022 05:52:50 11/08/19 23 11/08/2022 CBC W/DIF F MPV 11.4 fL 9.8-12 .7 Not Available [facility] (Lab) [address] [place], [address], 11/09/2022 05:52:50 11/08/1911/08/2022 CBC W/DIF F NRBC's 0.0 % 0 Not Available [facility] (Lab) [address], [place], [address], 11/09/2022 05:52:50 11/08/19 23 11/08/2022 CBC W/DIF F absolute NRBCs 0.0 10'3/ uL 0 Not Available [facility] (Lab) [address], [place], [address], 11/09/2022 05:52:50 11/08/19 23 11/08/2022 CBC W/DIF F neutrophils 66.5 % 37.0-7 2.0 Not Available [facility] (Lab) [address], [place], [address], 11/09/2022 05:52:50 11/08/19 23 11/08/2022 CBC W/DIF F lymphocytes 25.5 % 23.0-4 3.0 Not Available [facility] (Lab) [address], [place], [address], 11/09/2022 05:52:50 11/08/1911/08/2022 CBC W/DIF F monocytes 6.3 % 4.0-14 .0 Not Available [facility] (Lab) [address], [place], [address], 11/09/2022 05:52:50 11/08/1911/08/2022 CBC W/DIF F eosinophils 0.6 % 0.0-5. 0 Not Available [facility] (Lab) [address], [place], [address], 11/09/2022 05:52:50 11/08/19 23 11/08/2022 CBC W/DIF F basophils 0.5 % 0.0-2. 0 Not Available [facility] (Lab) [address] [place], [address], 11/09/2022 05:52:50 11/08/19 23 11/08/2022 CBC W/DIF F immature granulocytes 0.6 % no define d refere nce range Not Available [facility] (Lab) [address] [facility], [place], [address], 11/09/2022 05:52:50 11/08/19 23 11/08/2022 CBC W/DIF F absolute neutrophils 5.8 10'3/ uL 1.7-9. 7 Not Available [facility] (Lab) [address] [facility], [place], [address], 11/09/2022 05:52:50 11/08/19 23 11/08/2022 CBC W/DIF F absolute lymphocytes 2.2 10'3/ uL 1.2-7. 8 Not Available [facility] (Lab) [address] [facility], [place], [address], 11/09/2022 05:52:50 11/08/19 23 11/08/2022 CBC W/DIF F absolute monocytes 0.6 10'3/ uL 0.2-1. 4 Not Available [facility] (Lab) [address] [facility], [place], [address], 11/09/2022 05:52:50 11/08/19 23 11/08/2022 CBC W/DIF F absolute eosinophils 0.1 10'3/ uL 0.0-0. 7 Not Available [facility] (Lab) [address] [facility], [place], [address], 11/09/2022 05:52:50 11/08/19 23 11/08/2022 CBC W/DIF F absolute basophils 0.0 10'3/ uL 0.0-0. 3 Not Available [facility] (Lab) [address] [facility], [place], [address], 11/09/2022 05:52:50 11/08/19 23 11/08/2022 CBC W/DIF [...] resul ts are expec james. Not Available [facility] (Lab) [address] [place], [address], 11/09/2022 05:52:50 11/08/19 23 11/08/2022 LIPID PANEL ,AMA (LDL- CALC) total cholesterol 195 mg/dL 0-199 Not Available [facility] (Lab) [address] [place], [address], 11/09/2022 05:52:50 11/08/19 23 11/08/2022 LIPID PANEL ,AMA (LDL- CALC) triglyceride s 125 mg/dL 0.00-1 50.00 NCEP Refer ence Value s for Trigl yceri katarzyna: Inez l: <150 mg/dL Borde rline High: 150 - 199 mg/dL High: 200 - 499 mg/dL Very High: >/= 500 mg/dL Not Available [facility] (Lab) [address] [place], [address], 11/09/2022 05:52:50 11/08/19 23 11/08/2022 LIPID PANEL ,AMA (LDL- CALC) HDL cholesterol 51 mg/dL >40 Not Available [facility] (Lab) [address] [place], [address], 11/09/2022 05:52:50 11/08/19 23 11/08/2022 LIPID PANEL [...] mg/dL , HDL <40 mg/dL Not Available [facility] (Lab) [address] [facility], [place], [address], 11/09/2022 05:52:50 11/08/19 23 11/08/2022 LIPID PANEL ,AMA (LDL- CALC) non-HDL cholesterol 144 mg/dL no refere nce range A reaso nable goal for non-H DL delims stero l is one that is 30 mg/dL highe r than the LDL delmis stero l goal. Not Available [facility] (Lab) [address] [facility], [place], [address], 11/09/2022 05:52:50 11/08/19 23 11/08/2022 LIPID PANEL ,AMA (LDL- CALC) chol/HDL ratio 3.8 . 0.0-5. 0 Not Available [facility] (Lab) [address] [place], [address], 11/09/2022 05:52:50 11/08/19 23 11/08/2022 CMP(C OMPRE HENSI VE METAB OLIC PANEL ) sodium 140 mmol/ L 133-14 6 Not Available [facility] (Lab) [address] [place], [address], 11/09/2022 05:52:51 11/08/19 23 11/08/2022 CMP(C OMPRE HENSI VE METAB OLIC PANEL ) potassium 4.1 mmol/ L 3.5-5. 1 Not Available [facility] (Lab) [address] [place], [address], 11/09/2022 05:52:51 11/08/19 23 11/08/2022 CMP(C OMPRE HENSI VE METAB OLIC PANEL ) chloride 104 mmol/ L 98-107 Not Available [facility] (Lab) [address] [place], [address], 11/09/2022 05:52:51 11/08/19 23 11/08/2022 CMP(C OMPRE HENSI VE METAB OLIC PANEL ) carbon dioxide 29 mmol/ L 21-31 Not Available [facility] (Lab) [address] [facility], [place], [address], 11/09/2022 05:52:51 11/08/19 23 11/08/2022 CMP(C OMPRE HENSI VE METAB OLIC PANEL ) anion gap 7 mmol/ L 4-13 Not Available [facility] (Lab) [address] [facility], [place], [address], 11/09/2022 05:52:51 11/08/19 23 11/08/2022 CMP(C OMPRE HENSI VE METAB OLIC PANEL ) blood urea nitrogen 11 mg/dL 7-25 Not Available [facility] (Lab) [address] [facility], [place], [address], 11/09/2022 05:52:51 11/08/19 23 11/08/2022 CMP(C OMPRE HENSI VE METAB OLIC PANEL ) creatinine 0.68 mg/dL 0.50-0 .80 Not Available [facility] (Lab) [address] [facility], [place], [address], 11/09/2022 05:52:51 11/08/19 23 11/08/2022 CMP(C OMPRE HENSI VE METAB OLIC PANEL ) egfrcr (CKD-epi 2020) >90 mL/mi n/1.7 3_m2 >=60 Not Available [facility] (Lab) [address] [facility], [place], [address], 11/09/2022 05:52:51 11/08/19 23 11/08/2022 CMP(C OMPRE HENSI VE METAB OLIC PANEL ) calcium 9.0 mg/dL 8.3-10 .5 Not Available [facility] (Lab) [address] [facility], [place], [address], 11/09/2022 05:52:51 11/08/19 23 11/08/2022 CMP(C OMPRE HENSI VE METAB OLIC PANEL ) glucose 70 mg/dL 70-100 Not Available [facility] (Lab) [address] [facility], [place], [address], 11/09/2022 05:52:51 11/08/19 23 11/08/2022 CMP(C OMPRE HENSI VE METAB OLIC PANEL ) protein, total 7.0 g/dL 6.4-8. 3 Not Available [facility] (Lab) [address] [facility], [place], [address], 11/09/2022 05:52:51 11/08/19 23 11/08/2022 CMP(C OMPRE HENSI VE METAB OLIC PANEL ) albumin 4.3 g/dL 3.5-5. 0 Not Available [facility] (Lab) [address] [facility], [place], [address], 11/09/2022 05:52:51 11/08/19 23 11/08/2022 CMP(C OMPRE HENSI VE METAB OLIC PANEL ) ALT 18 units /L 9-43 Not Available [facility] (Lab) [address] [facility], [place], [address], 11/09/2022 05:52:51 11/08/19 23 11/08/2022 CMP(C OMPRE HENSI VE METAB OLIC PANEL ) alkaline phosphatase 83 units /L 40-80 high Not Available [facility] (Lab) [address] [place], [address], 11/09/2022 05:52:51 11/08/19 23 11/08/2022 CMP(C OMPRE HENSI VE METAB OLIC PANEL ) AST 13 units /L 13-39 Not Available [facility] (Lab) [address] [place], [address], 11/09/2022 05:52:51 11/08/19 23 11/08/2022 CMP(C OMPRE HENSI VE METAB OLIC PANEL ) bilirubin, total 0.6 mg/dL 0.2-1. 2 Not Available [facility] (Lab) [address], [place], [address], 11/09/2022 05:52:51 11/08/19 23 11/08/2022 TSH, REFLE X FREE T4 TSH 0.82 uIU/m L 0.30-5 .33 Not Available [facility] (Lab) [address], [place], [address], 11/09/2022 05:52:51 11/08/1911/08/2022 PROLA CTIN prolactin, total 14.10 NG/mL 4.79-2 3.30 This assay was perfo rmed using [employer] ratio n reage nts and test kits. Value s obtai gutierrez with other assay metho ds or kits canno t be used inter li eably . Not Available [facility] (Lab) [address], [place], [address], 11/09/2022 05:52:52 11/08/1911/08/2022 HEMOG LOBIN A1C hemoglobin [...] >8.0% Actio n sugge sted Not Available [facility] (Lab) [address] [place], [address], 11/09/2022 05:52:52 11/08/19 23 11/08/2022 CT/GC AND TRICH OMONA S VAGIN YAMILETH (RRNA ), URINE chlamydia trachomatis, PCR Negati ve negati ve Not Available [facility] (Lab) [address] [facility], [place], [address], 11/09/2022 13:37:09 11/08/19 23 11/08/2022 CT/GC AND TRICH OMONA S VAGIN YAMILETH (RRNA ), URINE neisseria gonorrhoeae, PCR Negati ve negati ve Not Available [facility] (Lab) [address] [facility], [place], [address], 11/09/2022 13:37:09 11/08/19 23 11/08/2022 CT/GC AND TRICH OMONA S VAGIN YAMILETH (RRNA ), URINE trichomonas vaginalis ribosomal RNA (rrna) Negati ve negati ve Not Available [facility] (Lab) [address] [facility], [place], [address], 11/09/2022 13:37:09 10/03/20 23 10/03/2023 CULTU RE: URINE result report SEE RESULT S BELOW abnormal Test: Cultu re: Urine Speci men Sourc e: Urine Voide d Speci men Type: Urine Speci men Date: 2022 1:36 PM Resul t Date: 2022 1:02 PM Resul t Statu s: Final resul t Abnor mal: Yes Bennett wood Lab: [facility] [address] [facility] [address] Tel: CULTU RE ----- ----- ----- --- [...] lab withi n 5 days. Not Available [facility] (Lab) [address] [facility], [place], [address], 10/05/2023 14:06:53 10/03/20 23 10/03/2023 urina lysis , dipst ick Leukocytes Trace Not Available [facility] [address], [place], [address], 10/03/2023 13:26:17 10/03/20 23 10/03/2023 urina lysis , dipst ick Nitrite neg Not Available [place] [address], [place], [address], 10/03/2023 13:26:17 10/03/20 23 10/03/2023 urina lysis , dipst ick Urobilinogen neg Not Available [facility] sara [address], [place], [address], 10/03/2023 13:26:17 10/03/20 23 10/03/2023 urina lysis , dipst ick Protein trace Not Available [place] [address], [place], [address], 10/03/2023 13:26:17 10/03/20 23 10/03/2023 urina lysis , dipst ick pH 5 Not Available [place] [address], [place], [address], 10/03/2023 13:26:17 10/03/20 23 10/03/2023 urina lysis , dipst ick Blood +++ Not Available [place] [address], [place], [address], 10/03/2023 13:26:17 10/03/20 23 10/03/2023 urina lysis , dipst ick Specific [place] 1.020 Not Available [facility] [address], [place], [address], 10/03/2023 13:26:17 10/03/20 23 10/03/2023 urina lysis , dipst ick Ketone neg Not Available [place] [address], [place], [address], 10/03/2023 13:26:17 10/03/20 23 10/03/2023 urina lysis , dipst ick Bilirubin neg Not Available Alexx quevedo [address], [place], [address], 10/03/2023 13:26:17 10/03/20 23 10/03/2023 urina lysis , dipst ick Glucose neg Not Available [place] [address], [place], [address], 10/03/2023 13:26:17 10/03/20 23 10/03/2023 urina lysis , dipst ick Appearance clear Not Available Liudmila holden [address], [place], [address], 10/03/2023 13:26:17 10/03/20 23 10/03/2023 urina lysis , dipst ick Color dark yellow Not Available [place] [address], [place], [address], 10/03/2023 13:26:17 02/12/20 24 02/12/2024 urina lysis , dipst ick pH 8 Not Available [place] [address], [place], [address], 02/12/2024 12:06:20 02/12/20 24 02/12/2024 urina lysis , dipst ick Specific [place] 1.000 Not Available [facility] [address], [place], [address], 02/12/2024 12:06:20 Result Notes None recorded. Problems Name Problem SNOMED Code Status Onset Date Resolution Date Notes Provider Name and Address Organization Details Recorded Time Depressive disorder 31600256 Completed 202008/26/2022 Ayesha Guardado null, [facility] 2 12:14:55 Migraine 23133432 Completed 202008/26/2022 no aura Ayesha glover [facility] 2 12:14:55 Problem Notes None recorded. [...] completed Not Available Not Available Not Available [facility] ODT 75 mg disintegrat ing tablet 75 MG ORALLY ONCE FOR MIGRAINE HEADACHE TAKE 1 TABLET EVERY OTHER DAY 02/11 completed Not Available Not Available Not Available Qulipta 60 mg tablet TAKE 1 TABLET BY MOUTH DAILY 02/18 completed Not Available Not Available Not Available Vitals Date Recorded Body height Body mass index (BMI) [Percentile] Per age and sex Body weight Systolic blood pressure Diastolic blood pressure Provider Name and Address Organization Details Last Updated DateTime 2 172.72 cm 90 % 40542.6 3 g 120 mm[Hg] 80 mm[Hg] Ayesha Guardado [facility] 2 14:18:56 Date Recorded Body height Body mass index (BMI) Body mass index (BMI) [Percentile] Per age and sex Body weight Systolic blood pressure Diastolic blood pressure Provider Name and Address Organization Details Last Updated DateTime 3 172.72 cm 27.4 kg/m2 90 % 84216.6 3 g 118 mm[Hg] 74 mm[Hg] Josi armendariz [facility] 3 11:43:06 Date Recorded Body height Body mass index (BMI) [Percentile] Per age and sex Body mass index (BMI) Body weight Provider Name and Address Organization Details Last Updated DateTime 02/18/2023 172.72 cm 94 % 30.3 kg/m2 [address]238.[address] [facility] 02/18/2023 16:36:37 Date Recorded Systolic blood pressure Diastolic blood pressure Provider Name and Address Organization Details Last Updated DateTime 02/18/2023 122 mm[Hg] 80 mm[Hg] Shelley Armendariz, [facility]- [address], [place], [address], [facility] 02/18/2023 16:47:21 Date Recorded Body height Body mass index (BMI) Body mass index (BMI) [Percentile] Per age and sex Body weight Systolic blood pressure Diastolic blood pressure Provider Name and Address Organization Details Last Updated DateTime 3 172.72 cm 32.1 kg/m2 95.36 % 17255.9 9 g 124 mm[Hg] 74 mm[Hg] Ayesha [facility] 3 13:22:06 Date Recorded Body height Body mass index (BMI) Body mass index (BMI) [Percentile] Per age and sex Body weight Systolic blood pressure Diastolic blood pressure Provider Name and Address Organization Details Last Updated DateTime 4 172.72 cm 28.7 kg/m2 91 % 88393.9 6 g 124 mm[Hg] 85 mm[Hg] Yanni Gale [facility] 4 12:00:47 Social History Question Answer Notes LastModified by Organizat ion Details LastModified Time Tobacco Smoking Status Never Smoker Ansley Evans MD [address], [place], [address], [place] [facility] 11/08/2020 11:51:50 Are You Blind Or [...] SNOMED-CT Code Diagnosis ICD10 Code Diagnosis Note [id number] Ansley Evans MD [place] [address],[place] [address] 11/08/2020 11:26:03 11/08/2020 17:25:08 Candidal vulvovaginitis 43170414 B37.3 Venereal d isease screening 060470143 Z11.3 [id number] Ansley Evans MD [place] [address],[place] [address] 06/19/2021 12:40:17 06/19/2021 14:25:04 Candidal vulvovaginitis 62552605 B37.3 [id number] Rumaadriana Appiah [place] [address],[place] [address] 08/21/2021 13:59:08 08/21/2021 15:08:19 Dysuria 43824164 R30.9 Increase water and decrease caffeine. Will start macrobid and also diflucan for history of yeast infection. Call or return if any worsening of symptoms, fever, back pain or flu like symptoms. Urine sent for culture. [id number] Lanie Valenzuela [place] [address],[place] [address] 09/06/2021 15:38:53 09/06/2021 16:39:24 Urgent desire to urinate 68132972 R39.15 [id number] Shelley Armendariz [facility] [address],[place] [address] 09/12/2021 16:08:18 09/12/2021 16:51:53 Urgent desire to urinate 49357390 R39.15 She is asymptomat ic today.We agreed [...] this patient s visit, including available hand tour production supervisor upon arrive, temperatur e check and being asked a series of screening questions. All staff wore face coverings during this encounter, as well as provided additional cleaning and sanitizing of all surfaces, including countertop s, pens, chairs, door handles, light switches, etc, prior to and following the patient s visit. [id number] Shelley Armendariz [facility] [address] [address] 08/28/2022 13:56:10 08/28/2022 14:47:29 Contraception care management [id number] Z30.9 Discussed all control options in great [...] and review of plan of care. 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 Take provera since UPT is [...] and review of plan of care. [facility] 422520932 Z00.00 Requested adult panel [id number] Shelley Armendariz [facility] [address],[place] [address] 02/18/2023 16:22:52 02/18/2023 17:03:52 Contraception care management 159128938 Z30.9 TOday we discussed fertility. She is [...] counseling and review of plan of care. [id number] Shelley Armendariz [facility] [address],[place] [address] 10/03/2023 13:12:35 10/07/2023 09:07:07 Urinary symptoms 145050507 R39.9 Suspect UTI based on subjective sx's and urine dip.Agreea ble to treat while we await return of results. Counseled on medication R/B's, Most common side effects, & use. All questions were answered to patient satisfacti on. Time spent in visit is a total of 18 mins with at least 50% of visit consisting of counseling and review of plan of care. [id number] Shelley Armendariz , [facility] [address] [address] 02/12/2024 11:44:22 02/12/2024 12:34:02 Urinary symptoms 966453572 R39.9 Vaginitis 71749286 N76.0 Took recent abx for ear infection; [...] ID Guarantor Name 08/28/2022 1 [place] [id number] Jeannine Orozco Solano [id number] [address] [facility] 11/08/2022 1 [place] [id number] Jeannine Orozco Solano [id number] [address] [facility] 02/18/2023 1 [place] [id number] Jeannine Orozco Solano [id number] [address] [facility] 10/03/2023 1 [place] [id number] Jeannine Solano [id number] 2M Maria Luisa Solano 02/12/2024 1 [facility]: (PPO) [id number] Jeannine Solano [id number] 2M Maria Luisa Solano Notes Date Note Type Note Provider Name and Address Organization Details Recorded Time 08/28/2022 text/html Here today for B C consult & suggestion for PCP.Requests STD screen.Hx reviewed & updated [facility]endariz [facility] [address], [place], [address], [facility] 08/28/2022 14:42:23 11/08/2022 text/html Patient is a 17y o white female here today for concerns of secondary amenorrhea.Hx of irregular cycles but usually occurs within 32-45 daysNo other sx's presentOtherwise feels fineHas taken multiple UPT's at home & all neg. Neg pain of abd/pelvis/flankNeg urinary sx'sNeg GI sx'sNeg N/V/F/C/DNeg Vag d/c, odor, irritation, itching Shelley Armendariz [facility] [address], [place], [address], [facility] 11/08/2022 12:19:52 02/18/2023 text/html Here today to di scuss fertility. Shelley Armendariz [facility] [address], [place], [address], [facility] 02/18/2023 16:52:37 10/03/2023 text/html Maria Luisa is a 18yo here today with sx's of dysuria, urgency, frequency which has presented this past week. Neg pain of abd/pelvis/flankNeg new sexual partnerNeg GI sx'sNeg N/V/F/C/DNeg Vag d/c, odor, irritation, itching ANDREW Azevedo [address], [place], [address], [facility] 10/06/2023 16:21:42 02/12/2024 text/html Vaginal/Vulvar ProblemReported [...] pain;vulvar itching/irritation;vu lvar swelling/erythema; + odorless discharge DEANNE Azevedo- [address], [place], [address], [facility] 02/12/2024 12:27:31 OBGyn Episode No OBEpisode recorded.
--- OUTSIDE RECORDS SUMMARY | 2025-02-25 08:31 | XMS_ITS ---
Author Organization [facility] [place] ([address]) Address [address] [place] [address] Care Team Providers Care Funeral Home Associate Name Role Phone Thai Barnett Primary Care Provider UnavailDelilah Gonzalez Unavailable [phone] ZZ-Migration, Provider Unavailable Unavailab le REASON FOR VISIT [facility] Conversion Encounter Medications Medication SIG (Take, [...] Active Encounters Encounter Location Date Provider Diagnosis [facility] - [address] [address] 04/17/2024 Provider ZZ-Migration Idiopathic urticaria L50.1 Assessments Encounter Date Diagnosis (ICD Code) Assessment Notes Treatment Notes Treatment Clinical Notes Section Notes 04/17/2024 Idiopathic urticaria (ICD-10 - L50.1) Plan Of Treatment Medication Medication Name Sig Start Date Stop Date Notes Cetirizine HCl 10 MG 1 tab(s) orally bid 01/29/2023 Famotidine 40 MG 1 tab(s) orally bid 01/29/2023 Progress Notes * Josefina GÓMEZaDOB:2005 (19 yo F)Acc No.[id number]:04/17/2024 Patient: Maria Luisa COTTON Provider: Margaux Cespedes :2005 A ge:19 Y S ex:Female Date:04/17/2024 Address:[address] [place] [address] , [place], [id number] Pcp:Thai Barnett Subjective: * Chief Complaints: * 1 . [facility] En[facility]. * Medical History: * Medications: [...] Electronic signature of Prov ider ZZ-Migration on 02/25/2025 at 08:31 AM CDT Sign off status: Pending * Provider: Margaux Cespedes Date: 04/17/2024 Generated for Leodan torres/Jhon/Willie on: 02/25/2025 08:31 AM CDT
--- OUTSIDE RECORDS SUMMARY | 2025-02-25 08:31 | XMS_ITS | CONTINUITY OF CARE DOCUMENT ---
Author Name kelly mendoza Address Unknown Organization [facility] Address [address] [place] [address] [address] [place] [address] Phone [phone] Care Team Providers Care Priming Powder Premix Blender Name Role Phone Marcos Juan MD Unavailable [phone] Marcos Juan MD Unavailable [phone] INSURANCE PROVIDERS Payer name Policy type / Coverage type [place] red green party ID [facility] [id number]
--- OUTSIDE RECORDS SUMMARY | 2025-02-25 08:31 | XMS_ITS | Patient Health Record ---
Author Organization [facility] [email or web address] [place] ([address]) Address [address] [place] [address] Care Team Providers Care Adjunct Faculty For Medical Terminology Name Role Phone Thai Barnett Primary Care Provider UnavailDelilah Gonzalez Unavailable [phone] ZZ-Migration, Provider Unavailable Unavailab le Allergies No [...] W/U Status Risk Notes Problem Idiopathic urticaria (90219813) Idiopathic urticaria (L50.1) Active confirmed Encounters Encounter Location Date Provider Diagnosis [facility] - [address] [address] 04/17/2024 Provider Bryon Idiopathic urticaria L50.1 Assessments Encounter Date Diagnosis (ICD Code) Assessment Notes Treatment Notes Treatment Clinical Notes Section Notes 04/17/2024 Idiopathic urticaria (ICD-10 - L50.1) Plan Of Treatment No Information Insurance Providers Payer Name Payer Address Payer Phone Subscriber Number Group Number Insured Name Patient Relationship to Insured Coverage Start Date Coverage End Date [facility] [address] [place] [address] [id number] [facility] Jeannine Solano Child - Insured has Financial Responsibility Medical (General) History Medical History History ICD Code Depression, unspecified F32.A Surgical History Surgery Date(Month/Year) ear patch 01/09/2018
--- OUTSIDE RECORDS SUMMARY | 2025-02-25 08:32 | XMS_ITS | Clinical Summary ---
Author Organization [facility] Address [address] [place] [address] Care Team Providers Care Boston Cutter Name Role Phone Unavailable Primary Care Provider [...] 08/12/2014, 08/06/2013, Additional history exists SARS-COV-2 Immunization ( season) 2024 Respiratory Syncytial Virus (RSV) Immunization [...]
--- OUTSIDE RECORDS SUMMARY | 2025-02-25 08:32 | XMS_ITS | Patient Health Record ---
Author Organization [facility] [employer] [facility] Address [address] [facility] [address] [place] [address] Care Team Providers Care Clinical Data Specialist Name Role Phone ARCELIA DANIELS PA-C Primary Care Provider Cyndi Nix Unavailable [phone] Migration, Provider Unavailable Unavailable Allergies No Known Allergies Results Component Value Reference Range Notes DRUG SCREEN, 14 DRUGS (DETEC TIMED), URINE Reviewed date:03/09/2024 12:00:00 AM Interpretation: Performing Lab: Notes/Report: Reason For Referral No Information Medications Medication SIG (Take, Route, Frequency, Duration) Notes Start Date End Date Status AIMOVIG AUTOINJECTOR 140 MG/ML SUBCUTANEOUS AUTO-INJECTOR *Reorder from [facility] for eRx and Interaction Alerts* 03/09/2024 Unknown hydrOXYzine HCl 10 MG 1 tablet Orally twice a day for 30 days As needed Active FLUoxetine HCl 10 MG 1 capsule Oral Once a day for 90 days TOTAL DAILY DOSE 30MG 01/06/2025 Active lamoTRIgine 25 MG 1 tablet Oral once a day for 90 days Active FLUoxetine HCl 10 MG TAKE 1 CAPSULE BY MOUTH EVERY DAY FOR 30 DAYS for 90 Active lamoTRIgine 100 MG 1 tablet Orally Once a day for 90 days Active FLUoxetine HCl 20 MG 1 capsule Orally Once a day for 90 days Active NUVARING 0.12 MG-0.015 MG/24 HR VAGINAL *Reorder from [facility] for eRx and Interaction Alerts* 03/09/2024 Unknown Nurtec 75 MG Oral *Reorder from [facility] for eRx and Interaction Alerts* 03/09/2024 Unknown [...] Risk Notes Problem Moderate recurrent major depression (33759748) Major depressive disorder, recurrent, moderate (F33.1) Active confirmed Problem Generalized anxiety disorder (25221601) Generalized anxiety disorder (F41.1) Active confirmed Problem Attention deficit hyperactivity disorder, combined type (84195009) Attention-deficit hyperactivity disorder, combined type (F90.2) Active confirmed Encounters Encounter Location Date Provider Diagnosis [facility] [place] [address] [facility] [address] [place] [address] 03/09/2024 Cyndi Angelo Generalized anxiety disorder F41.1 ; Major depressive disorder, recurrent, moderate F33.1 and Attention-deficit hyperactivity disorder, combined type F90.2 [facility] [place] [address] [address] 03/15/2024 Provider Migration Attention-deficit hyperactivity disorder, combined type F90.2 [facility] [place] [address] [place] [address] 04/13/2024 Cyndi Angelo Major depressive disorder, recurrent, moderate F33.1 ; Generalized anxiety disorder F41.1 and Attention-deficit hyperactivity disorder, combined type F90.2 [facility] [address] [place] [address] 05/18/2024 Cyndi Angelo Major depressive disorder, recurrent, moderate F33.1 ; Generalized anxiety disorder F41.1 and Attention-deficit hyperactivity disorder, combined type F90.2 [facility] [place] [facility] [address] [place] [address] 06/24/2024 Cyndi Angelo Major depressive disorder, recurrent, moderate F33.1 ; Generalized anxiety disorder F41.1 and Attention-deficit hyperactivity disorder, combined type F90.2 [facility] [address] [place] [address] 07/29/2024 Cyndi Angelo Major depressive disorder, recurrent, moderate F33.1 ; Generalized anxiety disorder F41.1 and Attention-deficit hyperactivity disorder, combined type F90.2 [facility] [address] [place] [address] 09/16/2024 Cyndi Angelo Major depressive disorder, recurrent, moderate F33.1 ; Generalized anxiety disorder F41.1 and Attention-deficit hyperactivity disorder, combined type F90.2 [facility], [facility] [address] [place] [address] 10/14/2024 Cyndi Angelo Major depressive disorder, recurrent, moderate F33.1 ; Generalized anxiety disorder F41.1 and Attention-deficit hyperactivity disorder, combined type F90.2 [facility], [facility] [address] [place] [address] 11/25/2024 Cyndi Angelo Major depressive disorder, recurrent, moderate F33.1 ; Generalized anxiety disorder F41.1 and Attention-deficit hyperactivity disorder, combined type F90.2 [facility], [facility] [address] [place] [address] 01/06/2025 Cyndi Angelo Major depressive disorder, recurrent, moderate F33.1 ; Generalized anxiety disorder F41.1 and Attention-deficit hyperactivity disorder, combined type F90.2 [facility], [facility] [address] [place] [address] 03/15/2024 Provider Migration [facility], [facility] [address] [place] [address] 03/20/2024 Provider Migration [facility], [facility] [address] [place] [address] 03/21/2024 Provider Migration [facility], [facility] [address] [place] [address] 01/31/2025 Cyndi Angelo Major depressive disorder, recurrent, moderate F33.1 [facility], [facility] [address] [place] [address] 02/01/2025 Cyndi Angelo Attention-deficit hyperactivity disorder, combined type F90.2 [facility], [facility] [address] [place] [address] 01/06/2025 Cyndi Angelo [facility], [facility] [address] [place] [address] 01/06/2025 Cyndi Angelo [facility], [facility] [address] [place] [address] 01/06/2025 Cyndiciro Voraag [facility] [place] [facility] [address] [place] [address] 01/06/2025 Cyndiciro Stephens [facility] [address] [place] [address] 01/07/2025 Cyndiciro Voraag Assessments Encounter Date Diagnosis (ICD Code) Assessment Notes Treatment Notes Treatment Clinical Notes Section Notes 04/13/2024 Major depressive disorder, recurrent, moderate (ICD-10 - F33.1) Increase fluoxetine to 20mg daily for mood, anxiety, irritability. Patient educated on all medications including potential benefits, side effects, risks. Educated on proper dosing schedule and importance of compliance. 04/13/2024 Generalized anxiety disorder (ICD-10 - F41.1) 05/18/2024 Major depressive disorder, recurrent, moderate (ICD-10 - F33.1) Start Abilify 2mg daily for mood, irritability. Continue fluoxetine 20mg daily. Patient educated on all medications including potential benefits, side effects, risks. Educated on proper dosing schedule and importance of compliance. 06/24/2024 Major depressive disorder, recurrent, moderate (ICD-10 [...] to present immediately to the emergency room. 01/06/2025 Major depressive disorder, recurrent, moderate (ICD-10 - [...] to present immediately to the emergency room. 01/31/2025 Major depressive disorder, recurrent, moderate (ICD-10 - F33.1) 03/09/2024 Major depressive disorder, recurrent, moderate (ICD-10 - F33.1) 03/09/2024 Generalized anxiety disorder (ICD-10 - F41.1) 03/09/2024 Attention-defici t hyperactivity disorder, combined type (ICD-10 - F90.2) 03/15/2024 Attention-defici t hyperactivity disorder, combined type (ICD-10 - F90.2) 02/01/2025 Attention-defici t hyperactivity disorder, combined type (ICD-10 - F90.2) Electronic Prior Authorization was requested for Qelbree 200 MG Capsule Extended Release 24 Hour. Provider can order medication once approval received. 01/06/2025 Generalized anxiety disorder (ICD-10 - F41.1) 11/25/2024 Generalized anxiety disorder (ICD-10 - F41.1) 10/14/2024 Generalized anxiety disorder (ICD-10 - F41.1) 09/16/2024 Generalized anxiety disorder (ICD-10 - F41.1) 07/29/2024 Generalized anxiety disorder (ICD-10 - F41.1) 06/24/2024 Generalized anxiety disorder (ICD-10 - F41.1) 05/18/2024 Generalized anxiety disorder (ICD-10 - F41.1) 04/13/2024 Attention-defici t hyperactivity disorder, combined type (ICD-10 - F90.2) Stop Concerta, hold off on starting new medication. Wants to focus on mood/anxiety first. 05/18/2024 Attention-defici t hyperactivity disorder, combined type [...] hyperactivity disorder, combined type (ICD-10 - F90.2) 01/06/2025 Attention-defici t hyperactivity disorder, combined type (ICD-10 - F90.2) 06/24/2024 Other Decrease fluoxetine to 10mg daily [...] of psychotropic medications. -Crisis prevention hotline 988. 01/06/2025 Other Increase fluoxetine to 30mg daily for anxiety, mood. Patient educated on all medications including potential [...] therapeutic effects of psychotropic medications. -Crisis prevention [facility] 988. Plan Of Treatment Next Appt Details Provider Name:Cyndi Stephens 03/09/2025 08:00:00 AM, [address] [facility] [address], [place], [address], Insurance Providers Payer Name Payer Address Payer Phone Subscriber Number Group Number Insured Name Patient Relationship to Insured Coverage Start Date Coverage End Date [employer] [employer] [address] [place] [address] [id number] CARLINE GÓMEZ Self - patient is the insured Medical (General) History Surgical History Surgery Date(Month/Year) Eardrum revision ([id number])
--- OUTSIDE RECORDS SUMMARY | 2025-02-25 08:32 | XMS_ITS | Clinical Summary ---
Author Organization [facility] [address] Address [address] [place] [address] Care Team Providers Care Instrument Tester Name Role Phone Darrian Luna MD Primary Care Provider [phone] Source Comments [facility] [address],non-owned Affiliates and Associated Physician Practices is amultiple site organization consisting of ambulatory clinics and hospital sitesin [place], [place], [place] and [place]. This disclosure is being madepursuant to the Care Everywhere program and may not contain all information available regarding this patient. Last updated 18.[facility] [address] Allergies Active Allergy Reactions Criticality Noted Date Comments Lactose GI Discomfort 10/02/2017 Medications * This document contains information received from the source organization and may not represent a complete record from that organization. * Be aware that medications may not be up to date on this document. Alwaysverify current medications with the patient. drospirenone-eth inyl estradiol (MORIAH) 3-0.02 MG tablet 01/13/20 19 Active ibuprofen (MOTRIN) 600 MG tablet Take [...] 100 mg by mouth 2 times daily 05/31/20 20 Active lamoTRIgine (LAMICTAL) 25 MG tablet Take 25 mg by mouth 2 times daily Pt taking 125 mg BID and 25 mg in afternoon 05/31/20 20 Active lactobacillus extra strength (FLORAJEN) capsule Take 1 capsule by mouth once daily Active Riboflavin (B-2-400 PO) Active rizatriptan, disintegrating, (MAXALT-ROTARY FURNACE OPERATOR) 5 MG tabletIndication s:Chronic daily headache 1 tab PO prn severe migraine; may repeat in 2-4 hours if no relief. No more than 2 tabs in 24 H. 8 tablet 2 05/28/20 21 Active Additional Information Patient not taking.Reported on 12/14/2021 nitrofurantoin macrocrystal (MACRODANTIN) 100 MG capsule Take 1 (one) capsule by mouth at bedtime 30 capsule 10/24/20 21 Active Ferrous Sulfate (IRON PO) Active ARIPiprazole (ABILIFY) 10 MG tablet Take 10 mg by mouth once daily 10/02/20 21 Active Cholecalciferol (D3 PO) Active multivitamin daily tablet Take 1 tablet by mouth daily with food Active ondansetron (ZOFRAN) 8 MG tablet Take 1 (one) tablet by mouth every 8 hours as needed for Nausea/Vomiting 6 tablet 01/27/20 22 Active SUMAtriptan (Imitrex) 25 MG tablet Take 1 (one) tablet by mouth as needed for Migraine (May repeat in 2-4 hours if no relief. No more than 2 tablets in 24 HOURS) Maximum daily dose: 200 mg/24 hours 8 tablet 2 10/10/20 22 Active Active Problems Problem Noted Date Diagnosed Date Pelviectasis of kidney 10/30/2021 Assessment & Plan (11/07/2021 8:13 AM CITY BUS DRIVER): A&P - Left Pelviectasis of kidney Maria [...] nephrology Assessment & Plan (10/30/2021 6:03 AM CITY BUS DRIVER): A&P - Mild Left Pelviectasis Maria Luisa [...] 10/30/2021 Assessment & Plan (12/18/2021 5:00 PM CITY BUS DRIVER): Maria Luisa is a 16yo F who [...] 6mo Assessment & Plan (11/07/2021 8:21 AM CITY BUS DRIVER): A&P - right nephrolithiasis Please see assessment and plan under left pelviectasis Assessment & Plan (10/30/2021 6:04 AM CITY BUS DRIVER): A&P - Right Nephrolithiasis Please see assessment [...] concerns Assessment & Plan (11/08/2020 10:39 AM CITY BUS DRIVER): Chronic daily headaches (mostly tension type) have [...] access) Keratosis pilaris 10/14/2018 Overview (10/14/2018): 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 inflammation; anticipatory guidance + keratolytics Mom similarly affected Otorrhea 08/17/2010 Overview (08/03/2015): Perforation of left tympanic membrane 08/10/2010 Hearing loss, conductive 08/10/2010 Immunizations Immunization Administration Dates Next Due DTAP HIB IPV 03/03/2009 DTaP VACCINE IM (6wk-6yrs) 06/21/2005,,2004,05/18 HEP B VACCINE, PED/ADOL 03/11/2005,2004, Human Papilloma Virus Nineva lent Vaccine 12/06/2015,08/09/2015 Human Papilloma Virus Hawa valent Vaccine 04/22/2016 SAMIR VACCINE QUAD LAIV4 PF NASAL 08/09/2015 MENINGOCOCCAL ACWY (MCV4P) VAC IM 10/31/2020,05/2015 PNEUMOCOCCAL PCV7 CONJ, PEDS 03/11/2005, 2004,2004,05/18 POLIO [...] = 0.6 oz pur e alcohol) Comments No Sex and Gender Information Value Date Recorded Sex Assigned at Not on file Legal Sex Female 5:44 AM CITY BUS DRIVER Gender Identity Not on file Sexual Orientation [...] Oxygen Concentration 100% 10/02/2017 4 :25 PM CITY BUS DRIVER Weight 71.6 kg (157 lb 12.8 oz) 02/11/2022 1:29 PM CDT Height 172.7 cm (5' 8 ) 02/11/2022 1:29 PM CDT Body Mass Index 23.99 02/11/2022 1:29 PM CDT Plan of Treatment Health Maintenance Due Date Last Done Comments MENINGOCOCCAL (Group B) VACC INE SHARED DECISION-MAKING (1 of 2 - Standard) 2020 HEPATITIS C SCREENING 03/04/2022 CHLAMYDIA/GONORRHEA SCREENING 01/24/2023, 09/13/2021, 04/19/2021 COVID-19 VACCINE (1 - 2023-2 5 season) 2024 DEPRESSION SCREENING 11/03/2024 INFLUENZA VACCINE (Season Ended) 2025 08/09/20 15 DTAP/TDAP/TD VACCINES (7 - T d or Tdap) 08/09/2025 08/09/2015, 03/03/2009, 06/21/2005, Additional history exists ZOSTER VACCINE (1 of 2) 2054 HEPATITIS B VACCINE Completed 03/11/2005, 2004, 2004 PNEUMOCOCCAL VACCINE Completed 03/11/2005, 2004, 2004, Additional history exists HIB VACCINE Completed 03/03/2009 HPV VACCINE Completed 04/22/2016, 01/2016, 08/09/2015 MENINGOCOCCAL GROUPS A/C/Y/W VACCINE Completed 10/31/2020, 08/09/2015 HIV SCREENING Completed 01/24/2022 Procedures Procedure Name Priority Date/Time Associated Diagnosis Comments HIV-1 HIV-2 ANTIBODY + HIV P24 AG PANEL STAT 01/24/2022 7:57 AM CDT CHLAMYDIA + GC AMPLIFIED PROBE STAT 01/24/2022 7:42 AM CDT from Last 3 Months or Most Recently Relevant to Health Maintenance Results * HIV-1 HIV-2 ANTIBODY + HIV P24 AG PANEL (01/24/2022 7:57 AM CDT) Pathologist [facility] HIV Antigen/Antibod y 1 & 2 Non-reacti ve Non-react arie 01/24/2022 8:47 AM CDT [facility] Comment:No Laboratory eviden ce of HIV infection. Blood BLOOD SPECIMEN / Unknown Venipuncture / Unknown 01/24/2022 7:57 AM CDT 01/24/2022 8:02 AM CDT us Elda Stuart MD LAB - CHEMISTRY ORDERAB LES Final Result [facility] [address] [place] [address], [facility] [phone] * CHLAMYDIA + GC AMPLIFIED PROBE (STL) (01/24/2022 7:42 AM CDT) Pathologist [facility] Chlamydia Amplified Probe Negative Negative 01/24/2022 11:17 PM CDT [facility] GC Amplified Probe Negative Negative 01/24/2022 11:17 PM CDT [facility] Microbiology URINE / Unknown Collection / Unknown 01/24/2022 7:42 AM CDT 01/24/2022 7:55 AM CDT Narrative [facility] - 01/24/2022 11:17 PM CDT Results based on detection/no detection of ribosomal RNA by amplified method. us Elda Stuart MD LAB - MICROBIOLOGY MARK SAUER Final Result [facility] [address] [place] [address], [facility] [phone] from Last 3 Months or Most Recently Relevant to Health Maintenance Insurance ANTH ANTHEM ANTHEM Care Teams Instrument Tester Relationship Specialty Start Date End Date Darrian Luna MD [address] [place] [id number] PCP - General Pediatrics 02/04/19
--- OUTSIDE RECORDS SUMMARY | 2025-02-25 08:32 | XMS_ITS | Clinical Summary ---
Author Organization [facility] Address [facility] [place] [address] Care Team Providers Care Compression Molding Machine Tender Name Role Phone Thai Barnett PA-C Primary Care Provider [phone] Allergies Active Allergy Reactions Criticality Noted Date [...] 2020 Hepatitis C 2022 COVID-19 Vaccine ( - season) 2024 DTaP, Tdap and Td Vaccines (7 - Td or Tdap) 08/09/2025 08/09/2015, 03/03/2009, 06/21/2005, Additional history exists Hepatitis B Vaccines Completed 03/11/2005, 2004, 2004 Pneumococcal Vaccine: Pediatrics (0 to 5 Years) and At-Risk Patients (6 to 49 Years) Aged Out 03/11/2005, 2004, 2004, Additional history exists No longer eligible based on patient's age to complete this topic HPV Vaccines Completed 04/22/2016, 01/2016, 08/09/2015 Meningococcal Vaccine Completed 10/31/2020, 015 RSV Immunizations Under 20 Months Aged Out No longer eligible based on patient's age to complete this topic Insurance [facility] Care Teams Compression Molding Machine Tender Relationship Specialty Start Date End Date Thai Barnett PA-C [address] [facility] [address] [place] [address] PCP - General PHYSICIAN SUPERVISOR ANODIZING 06/11/23
--- OUTSIDE RECORDS SUMMARY | 2025-02-25 08:35 | XMS_ITS | CONTINUITY OF CARE DOCUMENT ---
Author Name kelly mendoza Address Unknown Organization [facility] Address [address] [place] [address] [address] [place] [address] Phone [phone] Care Team Providers Care Fiber Technician Name Role Phone Marcos Juan MD Unavailable Marcos Juan MD Unavailable [phone] INSURANCE PROVIDERS Payer name Policy type / Coverage type [place] red republican ID [facility] [id number]
[2025-02-25 08:43] VITALS: BP 126/80; PULSE 81; RESP 16; TEMP 36.8; O2SAT 100
--- NOTE | 2025-02-25 10:13 | ED.HEATRA ---
HPI - Head Injury General Chief complaint: Head Injury Stated complaint: head injury Time Seen by Provider: 02/25/25 09:10 Source: patient and RN notes reviewed Mode of arrival: ambulatory Limitations: no limitations History of Present Illness HPI Narrative: 19-year-old female presents Express Care complaining of a head injury. 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 While she was at work yesterday she was under her desk reaching for a wire when she was standing back up in hit the back of her head on a metal bar under the desk. She denies any loss of consciousness. Patient remembers hitting her head. Patient denies any retrograde amnesia. Patient reports have a headache, photophobia, and nausea since. Patient has taken some Tylenol and [id number]-ghv-nymanmm herbal supplements for her headache with minor relief. Patient said her symptoms are still persisting today. Patient denies any vomiting, dizziness, lightheadedness, weakness, slurred speech or any other complaints. Patient says she has had a concussion the past when she played soccer in high school. Related Data Home Medications ?Medication ?Instructions ?Recorded ?Confirmed ?Last Taken ?Type fluoxetine 10 mg capsule (Prozac) 10 mg PO DAILY 02/17/24 09/07/24 Unknown History lamotrigine 100 mg tablet mg 02/25/25 Unknown History Allergies Allergy/AdvReac Type Severity Reaction Status Date / Time No Known Allergies Allergy Mild Verified 02/25/25 08:42 Review of Systems Review of Systems: CONSTITUTIONAL: Denies fever, chills, or sweats. EYES: Denies visual changes, redness, or discharge. Positive for photophobia. ENT: Denies rhinorrhea, congestion, sore throat, or otalgia. CARDIOVASCULAR: Denies chest pain, palpitations, or edema. RESPIRATORY: Denies cough or dyspnea. GASTROINTESTINAL: Denies abdominal pain, vomiting, or diarrhea. Positive for nausea. GENITOURINARY: Denies dysuria or hematuria. SKIN: Denies rash or itching. MUSCULOSKELETAL: Denies back pain, joint pain, or myalgia. NEUROLOGIC: Positive for headaches. Negative for slurred speech, lethargy, numbness, or weakness. PSYCHIATRIC: Denies anxiety or depression. All other systems reviewed are negative, except as documented in HPI. [facility] Past Medical History Medical History Seizure disorder Head trauma Migraine syndrome Migraine Anxiety Depression Surgical History Surgical History History of ear surgery Family History Family History Father Alcoholism Hypertension Mother Hypertension Depression Sibling Depression Grandparent Depression Hypertension Cancer Social History Social History Smoking status: Smoker, status unknown (She does vaping) Tobacco type: e-cigarettes/vaping Second hand tobacco smoke exposure: No Alcohol intake: current Alcohol use details: socially Substance use type: marijuana Do You Feel Safe in your Home?: Yes Lack of Transportation: No Lack of Food: Sometimes True Current Housing: I Have Housing Concerned About Future Housing: No Difficulty Paying Gas/Electric Bills: No Difficulty Paying for Meds: No Currently Unemployed: No Education: High School Diploma/GED Difficulty w/ Childcare or Family Care: No Living arrangements: with family Occupation/Education: occupation Gender identity (if verbalized by the patient): Female Sexual Orientation (if Verbalized by the Patient): Straight or Heterosexual Comments At the time of my signature, I reviewed and agree with the nursing past medical, surgical, social, and family history. There is no relevant family history pertinent to the patient complaint. Exam Narrative: GENERAL: This is a well-nourished, well-developed adult, in no apparent distress. They are non ill-appearing, nontoxic appearing. HEAD: normocephalic, atraumatic. EYES: Sclera clear/white. Conjunctivae normal bilaterally. Vision is grossly intact. Extraocular movements intact. Pupils PERRLA. Negative raccoon eyes EARS: External ears normal, auditory canals clear and without drainage, TMs normal without perforation. Hearing grossly intact. No hemotympanum bilaterally. Negative anthony sign bilaterally. NOSE: External nose normal with no obvious nasal discharge, nares without redness, no rhinorrhea. THROAT: Mucous membranes moist, posterior pharynx clear without swelling or redness. Uvula midline. Teeth intact. No missing teeth. NECK: Neck supple, non-tender without lymphadenopathy, masses or thyromegaly. No cervical point tenderness, crepitus, or step-offs. CARDIOVASCULAR: Regular rate and rhythm without murmurs, gallops, or rubs. RESPIRATORY: Clear to auscultation. Breath sounds equal bilaterally. No wheezes, rales, or rhonchi. Respiratory rate normal, respiratory effort nonlabored, no respiratory distress SKIN: warm, Dry, intact with no suspicious lesions or rash, good texture and turgor. NEURO: awake, alert, and oriented to person, place and time. There were no obvious focal neurologic abnormalities. EXTREMITIES: No joint tenderness, effusion, or edema noted. BACK: Nontender without deformity. Course Course Emergency Course: Patient is aware of diagnosis, understands and agrees to treatment plan. Anticipatory guidance given. Patient agrees to follow-up as directed and is aware of reasons to seek care at the emergency department. Portions of this record may have been created with voice recognition software Level of Care: Express Care Visit Vital Signs Vital signs: Vital Signs Temperature 98.2 F 02/25/25 08:43 Pulse Rate 81 02/25/25 08:43 Respiratory Rate 16 02/25/25 08:43 Blood Pressure 126/80 02/25/25 08:43 Pulse Oximetry 100 02/25/25 08:43 Oxygen Delivery Room Air 02/25/25 08:43 Temperature 98.2 F 02/25/25 08:43 Pulse Rate 81 02/25/25 08:43 Respiratory Rate 16 02/25/25 08:43 Blood Pressure 126/80 02/25/25 08:43 Pulse Oximetry 100 02/25/25 08:43 Oxygen Delivery Room Air 02/25/25 08:43 Reviewed MDM - Head Injury MDM Narrative Medical decision making narrative: [place] head rule score of 0. The [place] CT head rule suggest a head CT is not necessary for this patient. Symptoms are consistent with a mild concussion. Will prescribe Zofran as needed for nausea. Discussed physical exam findings. Advised supportive measures and signs/symptoms to go to the ER. Pt is appropriate for outpt treatment and f/u. Differential Diagnosis Differential diagnosis: Likely concussion without loss of consciousness, closed head injury and other (Intracranial hemorrhage) Critical Care Time Critical Care Time Critical Care Time: No Discharge Plan Discharge Clinical Impression: Concussion Qualifiers: Encounter type: initial encounter Loss of consciousness presence/duration: without LOC Qualified Code(s): S06.0X0A - Concussion without loss of consciousness, initial encounter Patient Disposition: Home Condition: Stable Instructions: Concussion (ED) Additional Instructions: You may take Tylenol or ibuprofen as needed for pain or headaches. Take Zofran as directed as needed for nausea. It is likely that you have a concussion. Rest and stay hydrated. Avoid any that may cause a string or worsening headaches. Please follow-up with her doctor in 1-2 weeks to make sure symptoms are improving. If you develop any loss of consciousness, projectile vomiting, severe headaches, seizures, or unresponsiveness please go to the ER immediately. Patient Language: Bengali Prescriptions: New ondansetron 4 mg tablet,disintegrating 4 mg PO Q8H PRN (Reason: nausea and vomiting) Qty: 10 0RF No Action lamotrigine 100 mg tablet fluoxetine [Prozac] 10 mg capsule 10 mg PO DAILY Follow-up/Referrals: Rg Garces DO [Primary Care Provider] - Stand Alone Forms: Work/School Release IP Time of Disposition: 09:21
== END 2025-02-25 09:24 | disposition home or self-care (01) ==
PROVIDERS: PCP Internal Medicine
DX: S06.0X0A Concussion without loss of consciousness, initial encounter (principal); F17.290 Nicotine dependence, other tobacco product, uncomplicated; Z79.899 Other long term (current) drug therapy; W22.09XA Striking against other stationary object, initial encounter; Y99.0 Civilian activity done for income or pay
CPT/HCPCS: 99213; G0463

== ENCOUNTER 2025-05-26 16:05 | Outpatient (CLI) | payer BC, SELFPAY ==
--- NOTE | ~2025-05-26 | MR_ITS ---
EXAMINATION: MR knee RT wo con DATE: 05/26/2025 16:34 INDICATION: S83.281A - Other tear of lateral meniscus, current injury... TECHNIQUE: Magnetic resonance imaging (MRI) of the right knee was performed without intravenous contr ast. Sequences included axial PD-weighted FS FSE, coronal PD-weighted FSE and PD-weighted FS FSE, sag ittal PD-weighted FSE, and sagittal T2-weighted FS FSE. COMPARISON: X-ray right knee, 03/22/2025, images only FINDINGS: Medial compartment: Moderate diffuse cartilage thinning. Intact meniscus. Lateral compartment: Radial tear of the meniscal body. Oblique undersurface tear of the posterior horn, with evidence of h ealing and vertical abnormal signal in the adjacent inferior strut/capsule. Mild diffuse cartilage th inning. Patellofemoral compartment: Cartilage and retinacula intact. Ligaments and tendons: The ACL, PCL, MCL, and LCL are intact. Remaining flexor and extensor tendons are intact. Fluid: No significant fluid collection. Osseous/other: No suspicious focal or diffuse marrow signal. IMPRESSION: Radial tear of the body, lateral meniscus. Oblique undersurface tear of the posterior horn, medial me niscus, with adjacent meniscocapsular injury and possible evidence of healing change in the posterior lateral meniscal tear. Moderate medial compartment and mild lateral compartment cartilage thinning. Reviewed, dictated and finalized at location K. IMPRESSION: Radial tear of the body, lateral meniscus. Oblique undersurface tear of the pos terior horn, medial meniscus, with adjacent meniscocapsular injury and possible evidence of healing change in the posterior lateral meniscal tear. Moderate medial compartment and mild lateral compartment cartilage thinning.
== END 2025-05-26 16:06 | disposition home or self-care (01) ==
LOC: MICIMG 16:06
PROVIDERS: PCP Nurse Practitioner; Visit Provider Orthopaedic Surgery
DX: S83.281A Other tear of lateral meniscus, current injury, right knee, initial encounter (principal); X58.XXXA Exposure to other specified factors, initial encounter
CPT/HCPCS: 73721

== ENCOUNTER 2025-06-23 18:27 | Emergency (ER) | payer BC, SELFPAY ==
--- OUTSIDE RECORDS SUMMARY | 2024-04-17 16:30 | XMS_ITS ---
Author Organization [facility] [place] ([address]) Address [address] [place] [address] Care Team Providers Care Shell Maker Lockstitch Name Role Phone Thai Barnett Primary Care Provider UnavailDelilah Gonzalez Unavailable [phone] [facility]Migration, Provider Unavailable Unavailab le REASON FOR VISIT [facility] Conversion Encounter Medications Medication SIG (Take, Route, Fr equency, Duration) Notes Start Date End Date Status Qulipta 30 MG 1 tab(s) orally once a day Active Wellbutrin SR 150 MG 1 tab(s) orally 2 times a day Active Vraylar 3 MG 1 cap(s) orally once a day Active Cetirizine HCl 10 MG 1 tab(s) orally bid Active Famotidine 40 MG 1 tab(s) orally bid 01/29/2023 Active Encounters Encounter Location Date Provider Diagnosis [facility] - [address] [address] 04/17/2024 Provider ZZ-Migration Idiopathic urticaria L50.1 Assessments Encounter Date Diagnosis (ICD Code) Assessment Notes Treatment Notes Treatment Clinical Notes Section Notes 04/17/2024 Idiopathic urticaria (ICD-10 - L50.1) Plan Of Treatment Medication Medication Name Sig Start Date Stop Date Notes Cetirizine HCl 10 MG 1 tab(s) orally bid 01/29/2023 Famotidine 40 MG 1 tab(s) orally bid 01/29/2023 Progress Notes * Josefina GÓMEZaDOB:2005 (20 yo F)Acc No.[id number]:04/17/2024 Patient: Maria Luisa COTTON Provider: Margaux Cespedes :2005 A ge:19 Y S ex:Female Date:04/17/2024 Address:[address] [place] [address] , [place], [id number] Pcp:Thai Barnett Subjective: * Chief Complaints: * 1 . [facility]. * Medical History: * Medications: T aking Qulipta 30 MG Tablet 1 tab(s) orally once a day , Taking Wellbutrin SR 150 MG Tablet Extended Release 12 Hour 1 tab(s) orally 2 times a day , Taking Vraylar 3 MG Capsule 1 cap(s) orally once a day Objective: * Vitals: Assessment: * Assessment: 1. I diopathic urticaria - L50.1 (Primary) Plan: * Treatment: * Billing Information: * Visit Code: * Procedure Codes: * Electronic signature of Prov ider ZZ-Migration on 06/23/2025 at 06:32 PM CDT Sign off status: Pending * Provider: Margaux Cespedes Date: 04/17/2024 Generated for Leodan torres/Jhon/Willie on: 06/23/2025 06:32 PM CDT
--- OUTSIDE RECORDS SUMMARY | 2025-06-08 06:50 | XMS_ITS | Continuity of Care Document ---
Author Organization [facility] Address [address] [place] [address] Phone Care Team Providers Care Telephone Advice Nurse Name Role Phone Shalom Carlson PT Unavailable Unavailable Procedures Procedure Date Progress Note Therapeutic Activities Neuromuscular Re-Ed Therapeutic Exercise Therapeutic Activities Neuromuscular Re-Ed Therapeutic Exercise Manual Therapy Therapeutic Activities Neuromuscular Re-Ed Therapeutic Exercise Manual Therapy Therapeutic Activities Neuromuscular Re-Ed Therapeutic Exercise Therapeutic Activities Neuromuscular Re-Ed Therapeutic Exercise Therapeutic Activities Neuromuscular Re-Ed Therapeutic Exercise Therapeutic Activities Neuromuscular Re-Ed Therapeutic Exercise PT Evaluation Moderate Complexity Neuromuscular Re-Ed Therapeutic Exercise Advance Directives Directive Yes / No Effective Date File Name No Information Encounters Encounter Description Practice Location Reason(s) For Visit Diagnoses Date Provider Providers Copied on Encounter [facility], [address], [place], [place], [id number], [place] tel:[phone] [place] No Information Robyn Rausch. . [facility], [place], [place], [id number], tel:[phone] [place] No Information [facility] Bhavesh. . Referring Provider: Adam Foster, [address], [place], [address]. tel:[phone] [facility] [address], [place], [place], [address], [place] tel:[phone] [place] No Information [facility] [place]. . Referring Provider: Adam Foster, [address], [place], [address]. tel:[phone] [facility] [address], [place], [place], [address], tel:[phone] [place] No Information Magdy Young. . Referring Provider: Adam Foster, [address], [place], [address]. tel:[phone] [facility] [address], [place], [place], [address], tel:[phone] [place] No Information [facility] [place]. . Referring Provider: Adam Foster, [address] [place], [address]. tel:[phone] [facility], [place], [place], [address], [place] tel:[phone] [place] No Information [facility] [place]. . Referring Provider: Adam Foster, [address] [place], [address]. tel:[phone] [facility], [place], [place], [address], tel:[phone] [place] No Information [facility] [place]. . Referring Provider: Adam Foster, [address], [place], [address]. tel:[phone] [facility], [place], [place], [address], tel:[phone] [place] No Information Fritz Ospina. . Referring Provider: Adam Foster, [address], [place], [address]. tel:[phone] [facility], [address], [place], [place], [address], tel:[phone] [place] No Information Robyn Rausch. . Referring Provider: Adam Foster, [address], [place], [address]. tel:[phone] Family History Family Member Type Diagnosis Age At Onset No Information Payers Payer name Insurance type Covered constitution party ID Myron jean(s) [facility] [id number] Social History Type Description Quantity Date Captured Comments Sex Female Smoking Status No Information Chief Complaint And Reason For Visit No Information Reason For Referral Reason For Referral No Information History Of Present Illness Encounter Date Complaint History Of Prese nt Illness No Information Functional Status Date Functional Assessmen t No Information Instructions Date Instruction Additional Infor mation No Information Assessments Type Assessment Date No Information Patient Care Teams Name Effective Dates (start - stop) Status Members No Information
--- OUTSIDE RECORDS SUMMARY | 2025-06-20 03:00 | XMS_ITS ---
Author Organization [facility] [employer] Address [address] [facility] [address] [place] [address] Care Team Providers Care Calender Operator Name Role Phone ARCELIA DANIELS PA-C Primary Care Provider Cyndi Celis Unavailable [phone] REASON FOR VISIT 6 week follow up Social History Sex Assigned At : Social History Observation Description Sex Assigned At Female Encounters Encounter Location Date Provider Diagnosis [facility] [address] [facility] [address] [place] [address] 06/20/2025 Cyndi Jj Plan Of Treatment Next Appt Details Provider Name:Cyndi jimenez, 08/03/2025 08:00:00 AM, [address], [facility] [address], [place], [address], Progress Notes * SHELLY GÓMEZADOB:2005 (20 yo F)Acc No.[id number]:06/20/2025 Patient: CARLINE COTTON Provider: ASHELY MANCILLA :2005 A ge:20 Y S ex:Female Date:06/20/2025 Address:[address] [id number] Pcp:ARCELIA DANIELS PA-C Subjective: * Chief Complaints: * 6 week follow up * Electronic signature of ASHELY Reza on 06/23/2025 at 06:32 PM CDT Sign off status: Pending * Provider: Sukhjinder TOLENTINO PMP Date: 0 06/20/2025 Generated for Leodan torres/Jhon/Willie on: 0 06/23/2025 06:32 PM CDT
--- OUTSIDE RECORDS SUMMARY | 2025-06-22 09:15 | XMS_ITS ---
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 Name Role Phone ARCELIA DANIELS PA-C Primary Care Provider Cyndi Celis Unavailable [phone] Allergies No Known Allergies REASON FOR VISIT notified arrival but did not connect to tele Medications Medication SIG (Take, Route, Frequency, Duration) Notes Start Date End Date Status hydrOXYzine HCl 10 MG Tablet TAKE 1 TABLET BY MOUTH TWICE A DAY NEEDED; Duration: 90 Active lamoTRIgine 100 MG Tablet 1.5 tablet Orally Once a day; Duration: 90 days 06/22/2025 Active hydrOXYzine HCl 10 MG Tablet 1 tablet Orally twice a day; Duration: 30 days As needed 06/22/2025 Active busPIRone HCl 5 MG Tablet 1 tablet Orally Twice a day; Duration: 90 days 06/22/2025 09/20/2025 Active AIMOVIG AUTOINJECTOR 140 MG/ML SUBCUTANEOUS AUTO-INJECTOR *Reorder from [email or web address] for eRx and Interaction Alerts* 03/09/2024 Unknown Nurtec 75 MG Tablet Disintegrating Oral *Reorder from [employer] for eRx and Interaction Alerts* 03/09/2024 Unknown NUVARING 0.12 MG-0.015 MG/24 HR VAGINAL *Reorder from [email or web address] for eRx and Interaction Alerts* 03/09/2024 Unknown FLUoxetine HCl 20 MG Capsule 1 capsule Orally Once a day; Duration: 90 days 06/22/2025 Active Social History Tobacco Use: Social History Observation Description Date Details (start date - stop date) Never Smoker NA - NA Sex Assigned At : Social History Observation Description Sex Assigned At Female Social History Miscellaneous: Social Info Question Answer Notes Advance Care Planning Are you your own decision-maker Yes Do you have Power of Commercial Energy Rater for Health or Medi eulalio? No Tobacco Use: Social Info Question Answer Notes Tobacco Control (Standard) Tobacco use: Nonsmoker Additional Details Category Social Info Options Details Migrated Social History Migrated Social History Alcohol Intake: Occasional 04/03/2023,Tobacco Years: Never smoker 04/03/2023 Encounters Encounter Location Date Provider Diagnosis [facility] [employer] [facility] [address] [place] [address] 06/22/2025 Cyndi Анна Major depressive disorder, recurrent, moderate F33.1 ; Generalized anxiety disorder F41.1 and Attention-deficit hyperactivity disorder, combined type F90.2 Assessments Encounter Date Diagnosis (ICD Code) Assessment Notes Treatment Notes Treatment Clinical Notes Section Notes 06/22/2025 Major depressive disorder, recurrent, moderate (ICD-10 - [...] to present immediately to the emergency room. 06/22/2025 Generalized anxiety disorder (ICD-10 - F41.1) 06/22/2025 Attention-defici t hyperactivity disorder, combined type (ICD-10 - F90.2) 06/22/2025 Other Start buspar 5mg BID for anxiety management Patient educated on all medications including potential [...] -Crisis prevention hotline 988. Plan Of Treatment Medication Medication Name Sig Start Date Stop Date Notes lamoTRIgine 100 MG Tablet 1.5 tablet Ora lly Once a day; Duration: 90 days 06/22/2025 hydrOXYzine HCl 10 MG Tablet 1 tablet Or ally twice a day; Duration: 30 days 06/22/2025 busPIRone HCl 5 MG Tablet 1 tablet Orall y Twice a day; Duration: 90 days 06/22/2025 09/20/2025 FLUoxetine HCl 20 MG Capsule 1 capsule O rally Once a day; Duration: 90 days 06/22/2025 Treatment Notes Assessment Notes Major depressive disorder, [...] present immediately to the emergency room. Other Start buspar 5mg BID for anxiety management Patient educated on all medications including potential benefits, side effects, risks. Educated on proper dosing schedule and importance of compliance. Next Appt Details Follow Up: 4 Weeks, Reason: med f/u Provider Name:Cyndi jimenez, 08/03/2025 08:00:00 AM, [address], [address], [place], [address], History and Physical Notes * HPI (History of Present Illness) Category Sub-Category Detail Notes Category Not es History of Presenting Problem Anxiety Rates anxiety 04/12 with 10 b eing most severe. Here for follow up. Fluoxetine decreased and Lamictal increased last visit. She continues to struggle with anxiety, it is the same it has always been. Work is triggering anxiety, it is stressful. Denies panic attacks. Irritability was slightly improved since last visit, however has been feeling situationally down due to grandfather passing away a few weeks ago. Denies feeling hopeless or helpless, no suicidal ideation. Sleep is good, getting about 6 hours nightly. Energy level is fair to low. Appetite is good. Depression screening done Depression Rates depression 01/01 0 with 10 being most severe. Substance [...] Se veral days Trouble falling or staying asleep, or sl [...] as reading the newspaper or watching television: Several days Moving or speaking so slowly that other people could have noticed; or the opposite, being so fidgety or restless that you have been moving around a lot more than usual: Not at all Thoughts that you would be b justine off or of hurting yourself in some way: Not at all Total Score: 7 Interpretation: Mild Depression Intervention Depression Screening Findings: P ositve Follow-Up for Depression: Ok ntal health care management, Psychiatric follow-up Suicide Risk Assessment Performed: __ da te Depression Screening MURPHY-7 (2018 Edition) Feelin g nervous, anxious, or on edge: Nearly every day Not being able to stop or control worryi ng: More than half the days Worrying too much about different things : Several days Trouble relaxing: Several days Being so restless that it is hard to sit still: Several days Becoming easily annoyed or irritable: Mo re than half the days Feeling afraid as if something awful derian ht happen: Not at all If you checked any problems, how difficult have they made it for you to do your work, take care of things at home, or get along with other people?: Very difficult Examination Category Sub-Category Detail Notes Category Not [...] Homicidal ideation: none Delusions: no Hallucinations: no Progress Notes * SHELLY GÓMEZKENNETHB:2005 (20 yo F)Acc No.[id number]:06/22/2025 Patient: CARLINE COTTON Provider: ASHELY MANCILLA :2005 A ge:20 Y S ex:Female Date:06/22/2025 Address:[address] [place], [place] [id number] Pcp:ARCELIA DANIELS PA-C Check In:02:42 PM CSTCheck O ut:02:50 PM 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 The patient is in state of I L __x__patient is seen at HOME Pt is seen at other than Home [facility] the session was conducted via a HIPAA-compliance audio/visual platform. Depression R ates depression 3/10 with 10 being most severe. Anxiety R ates anxiety 6/10 with 10 being most severe. Mood lability n o hx of pal. Psychosis n o hx of psychosis. ADHD f orgetful in daily activities, easily distracted by extraneous stimuli, does not follow through on instructions and fails to finish work. Medication Side Effects n one. Suicidal ideation D enies. Substance abuse A lcohol use about monthly. Here for follow up. Fluoxetine decreased and Lamictal increased last visit. She continues to struggle with anxiety, it is the same it has always been. Work is triggering anxiety, it is stressful. Denies panic attacks. Irritability was slightly improved since last visit, however has been feeling situationally down due to grandfather passing away a few weeks ago. Denies feeling hopeless or helpless, no suicidal ideation. Sleep is good, getting about 6 hours nightly. Energy level is fair to low. Appetite is good.Depression screening done. D epression Screening: MURPHY-7 (2018 Edition) F eeling nervous, anxious, or on edge N early every day N ot being able to stop or control worrying?More than half the days W orrying too much about different things S ever T rouble relaxing S B eing so restless that it is hard to sit still S B ecoming easily annoyed or irritable M ore than half the days F eeling afraid as if something awful might happen N ot at all I f you checked any problems, how difficult have they made it for you to do your work, take care of things at home, or get along with other people? V elen difficult D epression screening: PHQ-9 L ittle interest or pleasure in doing things?Several days F eeling down, depressed, or hopeless S ever T rouble falling or staying asleep, or sleeping too much S ever F eeling tired or having little energy N early every day P oor appetite or overeating N ot at all F eeling bad about yourself or that you are a failure, or have let yourself or your family down N ot at all T rouble concentrating on things, such as reading the newspaper or watching television S M oving or speaking so slowly that other people could have noticed; or the opposite, being so fidgety or restless that you have been moving around a lot more than usual N ot at all T houghts that you would be better off or of hurting yourself in some way N ot at all T otal Score 7 I nterpretation M ild Depression Intervention D epression Screening Findings P ositve F ollow-Up for Depression M ental health care management, Psychiatric follow-up S uicide Risk Assessment Performed _ _ date * ROS: P sychiatric: Patient denies s uicidal thoughts, pal, auditory / visual hallucinations, delusions, panic attacks. P atient complains of a nxiety, irritability.?Comments S [facility] for details. * Medical History: Problems: Alcohol abuse Alcohol dependence Attention deficit hyperactivity disorder, combined type Generalized anxiety disorder Malaise and fatigue Moderate recurrent major depression , * Surgical History: Eardrum revision (73605) * Family History: M beatrizl Aunt: Depressive disorder . M other: Bipolar disorder , Attention deficit hyperactivity disorder , Depressive disorder . * Social History: T obacco Use: T obacco Control (Standard) T obacco use: N onsmoker M igrated Social History: M igrated Social History: Alcohol Intake: Occasional 04/03/2023,Tobacco Years: Never smoker 04/03/2023. M iscellaneous: A dvance Care Planning A re you your own decision-maker Y es D o you have Power of Commercial Energy Rater for Health or Medical? N o * Medications: T akingFLUoxetine HCl 20 MG Capsule 1 capsule Orally Once a day lamoTRIgine 100 MG Tablet 1.5 tablet Orally Once a day hydrOXYzine HCl 10 MG Tablet TAKE 1 TABLET BY MOUTH TWICE A DAY NEEDED Taking FLUoxetine HCl 20 MG Capsule 1 capsule Orally Once a day Taking lamoTRIgine 100 MG Tablet 1.5 tablet Orally Once a day Taking hydrOXYzine HCl 10 MG Tablet TAKE 1 TABLET BY MOUTH TWICE A DAY NEEDED DiscontinuedlamoTRIgine 100 MG Tablet 1 tablet Orally Once a day Discontinued lamoTRIgine 100 MG Tablet 1 tablet Orally Once a day UnknownNUVARING 0.12 MG- 0.015 MG/24 HR VAGINAL , Notes to Pharmacist: *Reorder from [employer] for eRx and Interaction Alerts*Nurtec 75 MG Tablet Disintegrating Oral , Notes to Pharmacist: *Reorder from [employer] for eRx and Interaction Alerts*AIMOVIG AUTOINJECTOR 140 MG/ML SUBCUTANEOUS AUTO-INJECTOR , Notes to Pharmacist: *[facility] and Interaction Alert[facility]*Medication List reviewed and reconciled with the patientUnknown NUVARING 0.12 MG-0.015 MG/24 HR VAGINAL , Notes to Pharmacist: *[facility]*Unknown Nurtec 75 MG Tablet Disintegrating Oral , Notes to Pharmacist: *[facility] Interaction [facility]*Unknown AIMOVIG AUTOINJECTOR 140 MG/ML SUBCUTANEOUS AUTO-INJECTOR , Notes to Pharmacist: *[facility] and Interaction Alerts*Medication List reviewed and reconciled with the patient * Allergies: N .K.D.A.yesAllergies Verified. Objective: * Examination: P sychiatry: Appearance: w ell-groomed. [...] Continue hydrOXYzine HCl Tablet, 10 MG, 1 tablet Orally twice a day As needed, 30 days, 60 Tablet, Refills 0; S tart busPIRone HCl Tablet, 5 MG, 1 tablet, Orally, Twice a day, 90 days, 180 Tablet. 3. O thers Notes: Start buspar 5mg BID for anxiety management Patient educated on all medications including potential [...] 9 6127 BEHAV ASSMT W/SCORE & DOCD/STAND [id number] TOBACCO [id number] VISIT COMPLEXITY INHERENT TO ONGOING CARE RELATED TO A PATIENT'S SINGLE, SERIOUS CONDITION OR A COMPLEX CONDITION * Preventive Medicine: Screenings: D epression screening Have you had a recent depression screening? Y es * Follow Up: 4 Weeks (Reason: med f/u) Billing Information: * Visit Code: 21406 OFFICE OUTPATIENT VISIT 25 MINUTES DETAILED HISTORY AND EXAM/MODERATE MEDICAL DECISION MAKING. * Procedure Codes: 61753 BEHAV ASSMT W/SCORE & DOCD/STAND INSTRUMENT. 1036F TOBACCO NON-USER. G2211 VISIT COMPLEXITY INHERENT TO ONGOING CARE RELATED TO A PATIENT'S SINGLE, SERIOUS CONDITION OR A COMPLEX CONDITION. * Sign off status: Completed true * Provider: ASHELY MANCILLA Date: 0 06/22/2025 Generated for Leodan torres/Jhon/Willie on: 06/23/2025 06:32 PM CDT
--- OUTSIDE RECORDS SUMMARY | 2025-06-23 18:32 | XMS_ITS | Patient Health Record ---
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 Name Role Phone ARCELIA DANIELS PA-C Primary Care Provider Cyndi Celis Unavailable [phone] Allergies No Known Allergies Reason For Referral No Information Medications Medication SIG (Take, Route, Frequency, Duration) Notes Start Date End Date Status AIMOVIG AUTOINJECTOR 140 MG/ML SUBCUTANEOUS AUTO-INJECTOR *Reorder from [email or web address] for eRx and Interaction Alerts* 03/09/2024 Unknown Nurtec 75 MG Tablet Disintegrating Oral *Reorder from [employer] for eRx and Interaction Alerts* 03/09/2024 Unknown NUVARING 0.12 MG-0.015 MG/24 HR VAGINAL *Reorder from [employer] for eRx and Interaction Alerts* 03/09/2024 Unknown FLUoxetine HCl 20 MG Capsule 1 capsule Orally Once a day; Duration: 90 days 06/22/2025 Active hydrOXYzine HCl 10 MG Tablet TAKE 1 [...] day; Duration: 90 days 06/22/2025 09/20/2025 Active Social History Tobacco Use: Social History Observation Description Date Details (start date - stop date) Never Smoker NA - NA Sex Assigned At : Social History Observation Description Sex Assigned At Female Social History Miscellaneous: Social Info Question Answer Notes Advance Care Planning Are you your own decision-maker Yes Do you have Power of Manager Of It for Health or [facility] eulalio? No Tobacco Use: Social Info Question Answer Notes Tobacco Control (Standard) Tobacco use: Nonsmoker Additional Details Category Social Info Options Details Migrated Social History Migrated Social History Alcohol Intake: Occasional 04/03/2023,Tobacco Years: Never smoker 04/03/2023 Problems Problem Type SNOMED Code ICD Code Onset Dates Problem Status W/U Status Risk Notes Problem Major depressive disorder, recurrent, moderate (F33.1) Active confirmed Problem Generalized anxiety disorder (06523845) Generalized anxiety disorder (F41.1) Active confirmed Problem Attention deficit hyperactivity disorder, combined type (01106494) Attention-deficit hyperactivity disorder, combined type (F90.2) Active confirmed Encounters Encounter Location Date Provider Diagnosis [facility] [employer] [facility] [address] [place] [address] 06/24/2024 Cyndi Kurilla Major depressive disorder, recurrent, moderate F33.1 ; Generalized anxiety disorder F41.1 and Attention-deficit hyperactivity disorder, combined type F90.2 [facility] [employer] [facility] [address] [place] [address] 07/29/2024 Cyndi Kurilla Major depressive disorder, recurrent, moderate F33.1 ; Generalized anxiety disorder F41.1 and Attention-deficit hyperactivity disorder, combined type F90.2 [facility] [employer] [facility] [address] [place] [address] 09/16/2024 Cyndi Kurilla Major depressive disorder, recurrent, moderate F33.1 ; Generalized anxiety disorder F41.1 and Attention-deficit hyperactivity disorder, combined type F90.2 [facility] [employer] [facility] [address] [place] [address] 10/14/2024 Cyndi Kurilla Major depressive disorder, recurrent, moderate F33.1 ; Generalized anxiety disorder F41.1 and Attention-deficit hyperactivity disorder, combined type F90.2 [facility] [employer] [facility] [address] [place] [address] 11/25/2024 Cyndi Kurilla Major depressive disorder, recurrent, moderate F33.1 ; Generalized anxiety disorder F41.1 and Attention-deficit hyperactivity disorder, combined type F90.2 [facility], [facility] [address] [place] [address] 01/06/2025 Cyndi Kurilla Major depressive disorder, recurrent, moderate F33.1 ; Generalized anxiety disorder F41.1 and Attention-deficit hyperactivity disorder, combined type F90.2 [facility], [place] [address] [place] [address] 03/09/2025 Cyndi Kurilla Major depressive disorder, recurrent, moderate F33.1 ; Generalized anxiety disorder F41.1 ; Attention-deficit hyperactivity disorder, combined type F90.2 and Encounter for screening for depression Z13.31 [facility], [facility] [address] [place] [address] 04/27/2025 Cyndi Kurilla Major depressive disorder, recurrent, moderate F33.1 ; Generalized anxiety disorder F41.1 ; Attention-deficit hyperactivity disorder, combined type F90.2 and Encounter for screening for depression Z13.31 [facility], [place] [address] [place] [address] 06/22/2025 Cyndi Kurilla Major depressive disorder, recurrent, moderate F33.1 ; Generalized anxiety disorder F41.1 and Attention-deficit hyperactivity disorder, combined type F90.2 [facility], [facility] [address] [place] [address] 01/31/2025 Cyndi Kurilla Major depressive disorder, recurrent, moderate F33.1 [facility], [place] [address] [place] [address] 02/01/2025 Cyndi Kurilla Attention-deficit hyperactivity disorder, combined type F90.2 [facility], [place] [address] [place] [address] 01/06/2025 Cyndi Kurilla [facility], [facility] [address] [place] [address] 01/06/2025 Cyndi Kurilla [facility], [facility] [address] [place] [address] 01/06/2025 Cyndi Kurvi [facility], [place] [address] [place] [address] 01/06/2025 Cyndi Kurilla [facility], [place] [address] [place] [address] 01/07/2025 Cyndi Анна Assessments Encounter Date Diagnosis (ICD Code) Assessment Notes Treatment Notes Treatment Clinical Notes Section Notes 07/29/2024 Major depressive disorder, recurrent, moderate (ICD-10 [...] depressive disorder, recurrent, moderate (ICD-10 - F33.1) 03/09/2025 Major depressive disorder, recurrent, moderate (ICD-10 - [...] to present immediately to the emergency room. 03/09/2025 Generalized anxiety disorder (ICD-10 - F41.1) 04/27/2025 Major depressive disorder, recurrent, moderate (ICD-10 - [...] present immediately to the emergency room. 06/22/2025 Major depressive disorder, recurrent, moderate (ICD-10 [...] to present immediately to the emergency room. 06/24/2024 Major depressive disorder, recurrent, moderate (ICD-10 - F33.1) 06/24/2024 Generalized anxiety disorder (ICD-10 - F41.1) 06/22/2025 Generalized anxiety disorder (ICD-10 - F41.1) 04/27/2025 Generalized anxiety disorder (ICD-10 - F41.1) 03/09/2025 Attention-defici t hyperactivity disorder, combined type (ICD-10 [...] 07/29/2024 Generalized anxiety disorder (ICD-10 - F41.1) 07/29/2024 Attention-defici t hyperactivity disorder, combined type (ICD-10 - F90.2) 09/16/2024 Attention-defici t hyperactivity disorder, combined type (ICD-10 - F90.2) 10/14/2024 Attention-defici t hyperactivity disorder, combined type (ICD-10 - F90.2) 11/25/2024 Attention-defici t hyperactivity disorder, combined type (ICD-10 - F90.2) 01/06/2025 Attention-defici t hyperactivity disorder, combined type (ICD-10 - F90.2) 03/09/2025 Encounter for screening for depression (ICD-10 - Z13.31) 04/27/2025 Attention-defici t hyperactivity disorder, combined type (ICD-10 - F90.2) 06/22/2025 Attention-defici t hyperactivity disorder, combined type (ICD-10 - F90.2) 06/24/2024 Attention-defici t hyperactivity disorder, combined type (ICD-10 - F90.2) 04/27/2025 Encounter for screening for depression (ICD-10 - Z13.31) 06/24/2024 Other Decrease fluoxetine to 10mg daily [...] therapeutic effects of psychotropic medications. -Crisis prevention [facility] 98. 11/25/2024 Other Increase lamictal to 100mg daily [...] therapeutic effects of psychotropic medications. -Crisis prevention [facility] 98. 01/06/2025 Other Increase fluoxetine to 30mg daily [...] therapeutic effects of psychotropic medications. -Crisis prevention [facility] 98. 03/09/2025 Other Increase lamictal to 125mg daily for mood Patient educated on all medications including potential [...] therapeutic effects of psychotropic medications. -Crisis prevention [facility] 988. 04/27/2025 Other Decrease fluoxetine to 20mg daily due to drowsiness. Increase lamictal to 150mg daily for mood Patient educated on all medications including potential benefits, side effects, risks. Educated on proper dosing schedule and importance of compliance. Encouraged to limit cannabis use due to brain fog, chronic fatigue -Assessment and treatment plan reviewed with patient. -Compliance with treatment plan importance discussed. -Discussed the risks/benefits of this medication -Discussed medication side effects. -Contact office if symptoms worsen. -Discussed that it can take up to 6-8 weeks to see full therapeutic effects of psychotropic medications. -Crisis prevention [facility] 988. 06/22/2025 Other Start buspar 5mg BID for [...] full therapeutic effects of psychotropic medications. -Crisis [place] [address]. Plan Of Treatment Next Appt Details Provider Name:Cyndi Love jimenez, 08/03/2025 08:00:00 AM, [address] [facility] [address], [facility] [address], [place], [address], Insurance Providers Payer Name Payer Address Payer Phone Subscriber Number Group Number Insured Name Patient Relationship to Insured Coverage Start Date Coverage End Date [employer] [address] [place] [address] [id number] CARLINE GÓMEZ Self - patient is the insured Medical (General) History Surgical History Surgery Date(Month/Year) Eardrum revision (37097)
--- OUTSIDE RECORDS SUMMARY | 2025-06-23 18:32 | XMS_ITS | Patient Health Record ---
Author Organization [facility] [employer] [place] ([address]) Address [address] [place] [address] Care Team Providers Care Anthropologist Physical Name Role Phone Thai Barnett Primary Care Provider Delilah Vicente Unavailable [phone] Allergies No Known Allergies Reason For Referral [...] W/U Status Risk Notes Problem Idiopathic urticaria (L50.1) Active confirmed Plan Of Treatment No Information Insurance Providers Payer Name Payer Address Payer Phone Subscriber Number Group Number Insured Name Patient Relationship to Insured Coverage Start Date Coverage End Date [facility] [address] [place] [address] [id number]ann[address] Solano Child - Insured has Financial Responsibility Medical (General) History Medical History History ICD Code Depression, unspecified F32.A Surgical History Surgery Date(Month/Year) ear patch 01/09/2018
--- OUTSIDE RECORDS SUMMARY | 2025-06-23 18:32 | XMS_ITS | Clinical Summary ---
Author Organization [facility] [employer] Address [address] [place] [address] Care Team Providers Care Vest Busheler Name Role Phone Darrian Luna MD Primary Care Provider [phone] Source Comments [facility] [employer],non-owned Affiliates and Associated Physician Practices is amultiple site organization consisting of ambulatory clinics and hospital sitesin [place], [place], [place] and [place]. This disclosure is being madepursuant to the Care Everywhere program and may not contain all information available regarding this patient. Last updated 18.[facility] [employer] Allergies Active Allergy Reactions Criticality Noted Date [...] Active Riboflavin (B-2-400 PO) Active rizatriptan, disintegrating, (MAXALT-COMMISSION SPECIALIST) 5 MG tabletIndication s:Chronic daily headache 1 [...] 10/30/2021 Assessment & Plan (11/07/2021 8:13 AM MARKET RISK SPECIALIST): A&P - Left Pelviectasis of kidney Maria [...] nephrology Assessment & Plan (10/30/2021 6:03 AM MARKET RISK SPECIALIST): A&P - Mild Left Pelviectasis Maria Luisa [...] 10/30/2021 Assessment & Plan (12/18/2021 5:00 PM MARKET RISK SPECIALIST): Maria Luisa is a 16yo F who [...] 6mo Assessment & Plan (11/07/2021 8:21 AM MARKET RISK SPECIALIST): A&P - right nephrolithiasis Please see assessment and plan under left pelviectasis Assessment & Plan (10/30/2021 6:04 AM MARKET RISK SPECIALIST): A&P - Right Nephrolithiasis Please see assessment [...] concerns Assessment & Plan (11/08/2020 10:39 AM MARKET RISK SPECIALIST): Chronic daily headaches (mostly tension type) have [...] access) Keratosis pilaris 10/14/2018 Overview (10/14/2018): 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 [...] on file Legal Sex Female 5:44 AM MARKET RISK SPECIALIST Gender Identity Not on file Sexual Orientation [...] Oxygen Concentration 100% 10/02/2017 4 :25 PM MARKET RISK SPECIALIST Weight 71.6 kg (157 lb 12.8 oz) 02/11/2022 1:29 PM CDT Height 172.7 cm (5' 8) 02/11/2022 1:29 PM CDT Body Mass Index 23.99 02/11/2022 1:29 PM CDT Plan of Treatment Health Maintenance Due Date Last Done Comments MENINGOCOCCAL (Group B) VACC INE SHARED DECISION-MAKING (1 of 2 - Standard) 2020 HEPATITIS C SCREENING 03/04/2022 CHLAMYDIA/GONORRHEA SCREENING 01/24/2023, 09/13/2021, 04/19/2021 COVID-19 VACCINE (1 - 2023-2 5 season) 2024 DEPRESSION SCREENING 11/03/2024 PAP SMEAR 2025 INFLUENZA VACCINE (#1) 2025 08/09/2015 DTAP/TDAP/TD VACCINES (7 - T d or [...] P24 AG PANEL (01/24/2022 7:57 AM CDT) [facility] HIV Antigen/Antibod y 1 & 2 Non-reacti ve Non-react arie 01/24/2022 8:47 AM CDT [facility] Comment:No Laboratory eviden ce of HIV infection. Blood BLOOD SPECIMEN / Unknown Venipuncture / Unknown 01/24/2022 7:57 AM CDT 01/24/2022 8:02 AM CDT us Elda Stuart MD LAB - CHEMISTRY ORDERAB LES Final Result [facility] [address] [place] [id number], [place] [phone] * CHLAMYDIA + GC AMPLIFIED PROBE (STL) (01/24/2022 7:42 AM CDT) [facility] Chlamydia Amplified Probe Negative Negative 01/24/2022 11:17 PM CDT [facility] GC Amplified Probe Negative Negative 01/24/2022 11:17 PM CDT [facility] Microbiology URINE / Unknown Collection / Unknown 01/24/2022 7:42 AM CDT 01/24/2022 7:55 AM CDT Narrative [facility] - 01/24/2022 11:17 PM CDT Results based on detection/no detection of ribosomal RNA by amplified method. us Elda Stuart MD LAB - MICROBIOLOGY MARK SAUER Final Result [facility] [address] [place] [address], [facility] [phone] from Last 3 Months or Most Recently Relevant to Health Maintenance Insurance ANTHEM ANTHEM ANTHEM Care Teams Vest Busheler Relationship Specialty Start Date End Date Darrian Luna MD [address] [place] [address] PCP - General Pediatrics 02/04/19
--- OUTSIDE RECORDS SUMMARY | 2025-06-23 18:32 | XMS_ITS | Clinical Summary ---
Author Organization [facility] Address [facility] [place] [address] Care Team Providers Care Motorcoach Operator Name Role Phone Thai Barnett PA-C Primary Care Provider [phone] Allergies Active Allergy Reactions Criticality Noted Date [...] 4:14 AM CDT Height 172.7 cm (5' 8) 06/11/2023 4:14 AM CDT Body Mass Index 30.41 06/11/2023 4:14 AM CDT Plan of Treatment Health Maintenance Due Date Last Done Comments Annual Physical 2007 Meningococcal B Vaccine (1 of 2 - Standard) 2020 Hepatitis C 2022 COVID-19 Vaccine ( - season) 2024 DTaP, Tdap and Td Vaccines (7 - Td or Tdap) 08/09/2025 08/09/2015, 03/03/2009, 06/21/2005, Additional history exists Cervical Cancer Screening Pap Smear (Age 21 to 29) Every 3 Years 11/08/2025 11/08/2022, 01/24/2022, 01/24/2022, Additional history exists Cervical Cancer Screening 11/08/2025 Hepatitis B Vaccines Completed 03/11/2005, 2004, 2004 [...] to complete this topic Insurance Care Teams Motorcoach Operator Relationship Specialty Start Date End Date Thai Barnett PA-C [address] [facility] [address] [place], [place] [id number] PCP - General PHYSICIAN CUSTOMER CARE ASSISTANT 06/11/23
--- OUTSIDE RECORDS SUMMARY | 2025-06-23 18:32 | XMS_ITS | Clinical Summary ---
Author Organization [facility] Address [address] [place] [address] Care Team Providers Care Service Parts Driver Name Role Phone Unavailable Primary Care Provider [...] Immunization (1 of 2 - Standard) 2020 SARS-COV-2 Immunization () 07/04/2024 Influenza Immunization (#1) 07/04/202505/2015, 08/12/2014, 08/06/2013, Additional history exists Respiratory Syncytial Virus (RSV) Immunization (Adult) (1 [...]
--- NOTE | 2025-06-23 18:33 | ED_ITS ---
HPI - URI/Sore Throat General Chief Complaint: Upper Respiratory Infection Stated Complaint: cough/chest pain /headache/ear pain Time Seen by Provider: 06/23/25 18:33 Source: patient, RN notes reviewed and old records reviewed Mode of arrival: ambulatory Limitations: no limitations History of Present Illness HPI Narrative: 20-year-old female presents to the [facility] with complaints of cough, congestion, ear discomfort since Friday, 3 days. Did a telehealth Visit and was prescribed Tessalon Perles and an albuterol. Patient states that she was taking DayQuil and tried some other decongestant. Onset (ago): day(s) (3) Related Data Home Medications ?Medication ?Instructions ?Recorded ?Confirmed ?Last Taken ?Type albuterol sulfate 90 mcg/actuation inhalation 06/23/25 Unknown History aerosol inhaler benzonatate 200 mg capsule mg PO 06/23/25 Unknown His tory buspirone 5 mg tablet mg 06/23/25 Unknown History fluoxetine 20 mg capsule mg 06/23/25 Unknown History hydroxyzine HCl 10 mg tablet mg 06/23/25 Unknown Hist ory lamotrigine 25 mg tablet mg 06/23/25 Unknown History Allergies Allergy/AdvReac Type Severity Reaction Status Date / Time No Known Allergies Allergy Mild Verified 06/23/25 18:34 Review of Systems Review of Systems: All systems reviewed & are unremarkable except as noted in HPI and below Constitutional: Constitutional: Reports no additional constitutional complaints Cardiovascular: Cardiovascular: Reports no additional cardiovascular complaint s, Denies chest pain and Denies dyspnea Respiratory: Respiratory: Reports as per HPI, Denies chest congestion, Reports cough and Denies dyspnea Musculoskeletal: Musculoskeletal: Reports no additional musculoskeletal complaints Integumentary/Breasts: Skin/Breast: Reports system reviewed and no additional complaints, except as docu PMFSH Past Medical History Medical History BMI 33.0-33.9,adult BMI 32.0-32.9,adult Seizure disorder Head trauma Migraine syndrome Migraine Anxiety Depression Surgical History Surgical History History of ear surgery Family History Family History Father Alcoholism Hypertension Diabetes mellitus Hyperlipidemia Mother Hypertension Depression Lupus Bipolar 1 disorder Raynaud disease Sibling Depression ADHD Grandparent Depression Hypertension Cancer Social History Social History Smoking status: Never smoker (She does vaping) Tobacco type: e-cigarettes/vaping Second hand tobacco smoke exposure: Yes Alcohol intake: current Alcohol use details: socially Substance use: current Substance use type: marijuana Do You Feel Safe in your Home?: Yes Lack of Transportation: No Lack of Food: Never True Current Housing: I Have Housing Concerned About Future Housing: No Difficulty Paying Gas/Electric Bills: No Difficulty Paying for Meds: No Currently Unemployed: No Education: High School Diploma/GED Difficulty w/ Childcare or Family Care: No Living arrangements: with family Occupation/Education: occupation Additional occupation/education comments: [employer] Gender identity (if verbalized by the patient): Female Sexual Orientation (if Verbalized by the Patient): Straight or Heterosexual Comments At the time of my signature, I reviewed and agree with the nursing past medical, surgical, social, and family history. There is no relevant family history pertinent to the patient complaint. Exam Const: General: cooperative, healthy appearing, comfortable, no acute distres s, well developed, alert and well nourished Nutritional Appearance: well nourished Orientation/consciousness: patient oriented x3 Limitations: no limitations HENMT: Head: normal to inspection Ears: hearing grossly normal bilaterally, external ears normal, EAC's normal, mastoids normal, no periauricular adenopathy and TM abnormal (Scarring) Face/Nose/Sinus: Nasal discharge present clear Mouth: Yes Normal oral and palatal mucosa present, Yes lip normal, Yes tongue normal and Yes moist mucous membranes Throat: uvula midline, postnasal drainage and no uvular edema Eyes: General: appearance normal, both eyes and all related structures Alignment and Position: alignment normal Neck: Neck: normal visual inspection, full ROM, no lymphadenopathy and no meningeal signs Chest: Chest palpation & inspection: normal inspection of the chest Resp: Effort & Inspection: normal respiratory effort and able to speak in com plete sentences Auscultation: clear to auscultation bilaterally, no crackles, no rales, no rhonchi and no wheezes Cardio: Rate: regular rate Skin: General skin exam: normal color and no rashes or lesions noted Neuro: General: patient oriented x3, gait normal, moves all extremities and no meningeal signs Cognition (Neuro): normal cognition Speech: normal speech Gait exam (Neuro): Normal gait present Extrem: General: normal to inspection, full ROM, capillary refill normal and normal gait Psych: Appearance: grossly normal and well kempt Mental Status: mental status grossly normal Speech and movement: Normal speech and movement present and Clear speech present Affect: normal affect Attitude: cooperative Course Course Level of Care: Express Care Visit Vital Signs Vital signs: Vital Signs Temperature 98.2 F 06/23/25 18:34 Pulse Rate 98 06/23/25 18:34 Respiratory Rate 18 06/23/25 18:34 Blood Pressure 128/88 06/23/25 18:34 Pulse Oximetry 100 06/23/25 18:34 Oxygen Delivery Room Air 06/23/25 18:34 Temperature 98.2 F 06/23/25 18:34 Pulse Rate 98 06/23/25 18:34 Respiratory Rate 18 06/23/25 18:34 Blood Pressure 128/88 06/23/25 18:34 Pulse Oximetry 100 06/23/25 18:34 Oxygen Delivery Room Air 06/23/25 18:34 Reviewed MDM - URI/Sore Throat MDM Narrative Medical decision making narrative: Patient sitting in exam room. Patient presents with 3 day history of URI symptoms. Flu and COVID are negative. Discussed doing a chest x-ray, discussed that her lungs are clear to auscultation, she declined at this time. Discussed possibly doing prednisone, discussed risk with her past medical history of anxiety, states that could make it worse, caused insomnia, she is declining prednisone at this time. Will try Mucinex, Flonase. States that she will give it a few more days and follow-up with primary care provider Discharge instructions reviewed with patient, as well as provided in writing per nursing staff. The instructions also include specific and strict return/GO TO THE ER as well as f/u information. All questions have been answered, and the patient deny any further questions with discharge and discharge plan. Some parts of this dictation were generated by voice recognition software and may contain typographical and/or grammatical inaccuracies. Differential Diagnosis Differential diagnosis: Likely upper respiratory infection, otitis media, sinusitis, viral infection, bronchitis, influenza and pharyngitis Lab Data Labs: Lab Results 06/23/25 Range/Units 18:57 POC Influenza A Ag Negative (Negative) POC Influenza B Ag Negative (Negative) POC SARS CoV-2 Ag Negative (Negative) Reviewed Critical Care Time Critical Care Time Critical Care Time: No Discharge Plan Discharge Clinical Impression: Upper respiratory infection Qualifiers: URI type: unspecified viral URI Qualified Code(s): J06.9 - Acute upper respiratory infection, unspecified Patient Disposition: Home Condition: Stable Instructions: Antibiotic Form, Upper Respiratory Infection (DC), Postnasal Drip (DC) Additional Instructions: Your rapid COVID test were negative Your rapid flu test was negative Your symptoms are likely due to a viral illness, which is not treated with antibiotics. Typically viral infections last 7-10 days, can linger for couple of weeks. It is very important to treat your symptoms. Drink plenty of water, Gatorade, Pedialyte, ice pops or Jell-O. -Alternate Tylenol and Motrin per package directions for fever or pain. You can alternate every 4 hours -Antihistamine medication such as Zyrtec/Claritin/Emily during the day can help improve symptoms. -doing daily nasal irrigations can help relieve pressure your sinuses. Things like a Neti pot -Use Flonase twice a day for 5 days then daily to help reduce the inflammation and dry up your sinuses. -You can also use Mucinex. Be sure to drink plenty of water with this medication at least 8 ounces with every dose and it is important to drink 8 to 10 glasses of water per day. Water is a natural decongestant -Eat and drink things that are easy to swallow, like tea or soup, or popsicles. -Oral rinses such as: Salt water gargles and/or may use topical anesthetic (eg. Chloraseptic spray) or lozenges to relieve dryness or throat pain). -Frequent hand washing or hand rehabilitation assistant is one of the best ways to prevent spread of infection. -Using a vaporizer or humidifier at night will also help thin secretions and help with coughing up phlegm. -Follow up with primary care provider in 7-10 days if condition is not improving - For new or worsening symptoms go directly to the nearest ER Patient Language: Nepali Prescriptions: No Action buspirone 5 mg tablet benzonatate 200 mg capsule PO lamotrigine 25 mg tablet albuterol sulfate 90 mcg/actuation HFA aerosol inhaler INHALATION hydroxyzine HCl 10 mg tablet fluoxetine 20 mg capsule Follow-up/Referrals: Demond Patrick APRN [Primary Care Provider, Internal Medicine] - 2 Weeks Stand Alone Forms: Work/School Release IP Time of Disposition: 19:02
[2025-06-23 18:34] VITALS: BP 128/88; PULSE 98; RESP 18; TEMP 36.8; O2SAT 100
[2025-06-23 18:58] LABS: EDCOVIDSCREEN Negative (Negative); EDINFLUASCREEN Negative (Negative); EDINFLUBSCREEN Negative (Negative)
== END 2025-06-23 19:09 | disposition home or self-care (01) ==
PROVIDERS: Emergency Provider Nurse Practitioner; PCP Nurse Practitioner
DX: J06.9 Acute upper respiratory infection, unspecified (principal); Z20.822 Contact with and (suspected) exposure to COVID-19; F17.290 Nicotine dependence, other tobacco product, uncomplicated; G40.909 Epilepsy, unspecified, not intractable, without status epilepticus; F41.9 Anxiety disorder, unspecified; F32.A Depression, unspecified
CPT/HCPCS: 87426; 87804; 99212; G0463